=== PATIENT | female | born 1970 | race Caucasian/White ===

== ENCOUNTER 2016-10-29 16:06 | Emergency (ER) | payer SELFPAY ==
[2016-10-29] MEDS ORDERED: KETOROLAC TROMETHAMINE 60 MG/2 ML VIAL IM ONE ×2 (16:58→17:31)
[2016-10-29] MEDS ORDERED: ORPHENADRINE CITRATE 30 MG/ML VIAL ONE (16:59)
[2016-10-29] MEDS ORDERED: ORPHENADRINE CITRATE 30 MG/ML VIAL IM ONE (17:31)
--- OUTSIDE RECORDS SUMMARY | 2016-10-29 18:25 | XMS REPORT | Continuity of Care Document ---
:1970 Author Organization [place] [address] Care Team Providers Name Role Phone DeshawnMary Grace Primary Care Provider [phone] Source Comments This disclosure is being made pursuant to the X BODY program and maynot contain all information available regarding this patient. Active Allergies and Adverse Reactions Not on File Current Medications Be aware that medications may not be up to date as of this document. Alwaysverify current medications with the patient. Not on file Active Problems Not on file Social History Tobacco Use Types Packs/Day Years Used Date Never Assessed Plan of Care Health Maintenance Due Date Last Done Comments Retired-Pertussis Vaccine Adult 1987 Retired-Tetanus Vaccine Adult 1987 Pap Smear 1989 Mammogram 2008 Retired-INFLUENZA VACCINE 04/26/2015 Results from Last 3 Months Not on file
--- OUTSIDE RECORDS SUMMARY | 2016-10-29 18:26 | XMS REPORT | Continuity of Care Document ---
:1970 Author Organization [facility] ([facility]) Address [address] [place] [address] Phone [phone] Care Team Providers Name Role Phone Provider, No-Primary Care Primary Care Provider Unavailable Source Comments This disclosure is being made pursuant to the Care Everywhere program, applicable federal and state laws, and may not contain all informaitonavailable regarding this patient.[facility] ([facility]) Active Allergies and Adverse Reactions Allergen Noted Date Severity Reactions Comments Prochlorperazine OTHER Irritable Current Medications Not on file Active Problems Problem Noted Date Closed fracture of one or more phalanges of foot 06/01/2002 Most Recent Encounters Date Type Specialty Providers Description 09/27/2016 Lab Requisition Pathology Keya Rogers Immunizations Name Dates Previously Given Next Due Influenza, unspecified 02/20/2007 Social History Tobacco Use Types Packs/Day Years Used Date Never Assessed Last Filed Vital Signs Vital Sign Reading Time Taken Blood Pressure 132/93 02/28/2007 3:29 PM CDT Pulse 96 02/28/2007 3:29 PM CDT Temperature 36 C (96.8 F) 02/28/2007 3:29 PM CDT Respiratory Rate 18 02/21/2007 12:00 PM CDT Height 1.62 m (5' 3.77") 02/28/2007 3:29 PM CDT Weight 107.897 kg (237 lb 13.9 oz) 02/28/2007 3:29 PM CDT Body Mass Index 41.11 02/28/2007 3:29 PM CDT Oxygen Saturation - - Plan of Care Health Maintenance Due Date Last Done Comments Hepatitis B Vaccine (1 of 3 - Primary Series) 1968 Tdap Vaccine 1979 MMR Vaccine 1986 Td Vaccine 1986 Cervical Cancer Screening 1998 Mammogram 2008 Influenza Vaccine: Seasonal (#1) 03/26/2016 02/20/2007 Lipid Disorder Screening 09/27/2021 09/27/2016 Results from Last 3 Months THYROXINE - FREE (09/27/2016 9:37 AM) Component Value Range Free T4 (Thyroxine) 0.71(L) 0.80-1.80 ng/dL Specimen Blood TRIGLYCERIDES (09/27/2016 9:37 AM) Component Value Range Triglycerides 302(H)Comment: 0-150 mg/dL Reference Ranges: Normal:<150 mg/dL Borderline-high:150-199 mg/dL High: 200-499 mg/dL Very high: > ru=572 mg/dL Specimen Blood HIGH DENSITY LIPOPROTEIN CHOL (09/27/2016 9:37 AM) Component Value Range HDL Cholesterol 56 >=41 mg/dL LDL - Calculated 156(H) <=130 mg/dL Non-HDL Cholesterol (Calc) 216 mg/dL Specimen Blood CHOLESTEROL (09/27/2016 9:37 AM) Component Value Range Cholesterol 272Comment: mg/dL Reference Range: Less than 200 mg/dL - desirable 200 - 240 mg/dL - increased risk Above 240 mg/dL - significant risk Specimen Blood CREATININE (09/27/2016 9:37 AM) Component Value Range Creatinine 1.0Comment: 0.5-1.0 mg/dL Creatinine switched to enzymatic method on 01/02/2011.GFR equation switched to IDMS-traceable MDRD equation on 01/02/2011. Calculated GFR values are not valid in clinical settings where serum creatinine is changing. Calculated GFR 59(L) >60 mL/min/1.73 m2 Specimen Blood BLOOD UREA NITROGEN (09/27/2016 9:37 AM) Component Value Range BUN 14 10-20 mg/dL Specimen Blood CO2 (09/27/2016 9:37 AM) Component Value Range CO2 24 22-29 mEq/L Anion Gap 18 8-18 mEq/L Specimen Blood CHLORIDE (09/27/2016 9:37 AM) Component Value Range Chloride 97 95-107 mEq/L Specimen Blood POTASSIUM (09/27/2016 9:37 AM) Component Value Range Potassium 4.6 3.5-5.0 mEq/L Specimen Blood SODIUM (09/27/2016 9:37 AM) Component Value Range Sodium 139 135-145 mEq/L Specimen Blood THYROID STIMULATING HORMONE (TSH), WITH REFLEX FREE T-4 (09/27/2016 9:37 AM) Component Value Range TSH, Reflex 5.69(H) 0.27-4.20 IU/mL Specimen Blood GLUCOSE (09/27/2016 9:37 AM) Component Value Range Glucose 102(H)Comment: 65-99 mg/dL The Expert Committee on the Diagnosis and Classification of Diabetes has defined impaired fasting glucose as greater than or equal to 100 mg/dL but less than 126 mg/dL.(Diabetes Care 28 (Suppl 1)S41,2005) Specimen Blood ASPARTATE AMINOTRANSFERASE (09/27/2016 9:37 AM) Component Value Range AST 19Comment: 0-32 U/L Adult reference ranges updated on 07/21/13 at 830am Specimen Blood ALANINE AMINOTRANSFERASE (09/27/2016 9:37 AM) Component Value Range ALT 23Comment: 0-33 U/L The upper limit of normal for alanine aminotransferase (ALT) reference ranges for adults is controversial with some authorities recommending limit as low as 30 U/L for males and 19 U/L for females. Th ere is increased incidence of subclinical liver disease (e.g., early steatohepatitis) in patients with ALT values in the range of 31-41 U/L for males and 20-33 U/L for females. ALT values should alway s be interpreted in conjunction with clinical history, physical examination findings, and, if applicable, data from other diagnostic tests. Specimen Blood EXTRA LAVENDER TUBE (09/27/2016 9:37 AM) Component Value Range Extra Lavender Tube Store Specimen Whole Blood
--- NOTE | 2016-10-29 18:33 | ERNOTE ---
Back Pain ER HPI Time Seen by Provider: 10/29/16 18:19 Source: patient Exam Limitations: no limitations Immunizations: IMMUNIZATION HX Immunizations Up to Date Yes History of Influenza Vaccine No Hx Pneumococcal Vaccination No Allergies/Adverse Reactions: Allergies No Known Drug Allergies Allergy (Verified 10/29/16 16:36) Home Medications: HOME MEDICATIONS Albuterol Sulfate [Proair Hfa] 1 - 2 puff IH Q4H PRN #1 inhaler 05/17/16 [Last Taken Unknown] Amitriptyline HCl 100 mg PO HS #30 tablet 08/21/16 [Last Taken Unknown] Citalopram Hydrobromide [Celexa] 30 mg PO DAILY #30 tablet 08/21/16 [Last Taken Unknown] Gabapentin 400 mg PO TID #90 capsule 08/21/16 [Last Taken Unknown] Lisinopril [Zestril] 20 mg PO DAILY #30 tablet 08/21/16 [Last Taken Unknown] Cyclobenzaprine HCl [Flexeril] 10 mg PO TID PRN #30 tab 10/29/16 [Last Taken Unknown] Ibuprofen [Motrin] 800 mg PO TID PRN #60 tab 10/29/16 [Last Taken Unknown] Narrative: Patient has intermittent sciatic back pain for about five years. Three days ago her pain acted up again without any injury. She was requesting toradol and norflex and is feeling much better after that Date (Duration): 10/26/16 Timing: Reports: intermittent Quality/Severity: Reports: severe, sharpness Location of pain: Reports: lower back, radiating to lf thigh/leg Activities at Onset: Reports: none Recent Injury?: Reports: no Possible Precipitating Factor: Denies: fall/near fall, trauma Modifying Factors - (Worsens): Reports: movement flexion Associated Symptoms: Denies: fever/chills, constipation/incontinence, nausea/ vomiting, problems urinating, difficulty walking, numbess/weakness in legs Prior Treament: Reports: similar symptoms before. Denies: recently seen Review of Systems - Review of Systems Constitutional: Absent: recent illness, fever EYE: Absent: double vision ENT: Absent: sore throat Respiratory: Absent: shortness of breath, cough Cardiology: Absent: chest pain Gastrointestinal/Abdominal: Absent: nausea, vomiting, abdominal pain Genitourinary: Present: no symptoms reported Musculoskeletal: Present: See HPI Neurological: Absent: weakness, numbness - Patient's Past Medical History Patient History - Medical: Anxiety, Bipolar, Depression, Obesity, Other Patient History - Cardiac/Respiratory: No pertinent hx Patient History - Cancer: No Hx of Cancer Patient History - Surgical Procedures: Cholecystectomy, Hysterectomy Patient History - Other: None - Family History Mother Family History - Cardiac/Respiratory: Myocardial Infarction Father Family History - Medical: History Unknown - Social History Living Situations: home Psych History: Hx of Anxiety, Hx of Depression, Hx of Bipolar Disorder Alcohol Use: none Drug Use: none - Immunizations Immunizations Up to Date: Yes Hx Pneumococcal Vaccination: No History of Influenza Vaccine: No Physical Exam - Physical Exam General Appearance: Present: wd/wn, alert, no apparent distress, obese Respiratory: Present: no respiratory distress, normal breath sounds, no accessory muscle use, lungs clear Cardiovascular/Chest: Present: regular rate, rhythm, no murmur Gastrointestinal/Abdominal: Present: nontender, nondistended Back Exam: Present: normal inspection, no vertebral tenderness, muscle spasm - left lumbar paraspinal Neurological Exam: Present: alert, oriented, normal mood/affect, no motor/ sensory deficits DTR: N=norm/NB=norm/brisk/A=abs/DD=dull/dimin/HC=hyperactive: Knee (R): Normal, Knee (L): Normal Skin Exam: Present: normal color, warm/dry ED Progress - Vital Signs Patient's Vital Signs:: I have reviewed the patient's vital signs. Vital Signs: Vital Signs 10/29/16 16:32 Temperature 36.5 C Pulse Rate 97 Respiratory 16 Rate Blood Pressure 206/99 O2 Sat by Pulse 92 Oximetry - Progress/Reassessment Chief Complaint: Back Pain Departure Clinical Impression: Sciatic nerve pain Qualifiers: Laterality: left Qualified Code(s): M54.32 - Sciatica, left side - Departure Disposition: Home self-care Condition: Good Instructions: Sciatica, [id number] Additional Instructions: follow up with your doctor in [place] Prescriptions: Cyclobenzaprine HCl [Flexeril] 10 mg PO TID PRN #30 tab PRN Reason: MUSCLE SPASMS Ibuprofen [Motrin] 800 mg PO TID PRN #60 tab PRN Reason: Pain
[2016-10-29 18:38] VITALS: BP 157/55
== END 2016-10-29 18:30 | disposition home or self-care (01) ==
LOC: ER 16:06
DX: M54.32 Sciatica, left side (principal); F41.8 Other specified anxiety disorders; F31.70 Bipolar disorder, currently in remission, most recent episode unspecified

== ENCOUNTER 2017-01-08 15:47 | Emergency (ER) | payer SELFPAY ==
[2017-01-08] MEDS ORDERED: ALBUTEROL SULFATE/IPRATROPIUM 3 ML NEBU IH ONE ×2 (17:04→17:28)
--- OUTSIDE RECORDS SUMMARY | 2017-01-08 17:04 | XMS REPORT | Continuity of Care Document ---
:1970 Author Organization [facility] ([facility]) Address [address] [place] [address] Phone [phone] Care Team Providers Name Role Phone Provider, No-Primary Care Primary Care Provider Unavailable Source Comments This disclosure is being made pursuant to the Care Everywhere program, applicable federal and state laws, and may not contain all informaitonavailable regarding this patient.[facility] ([facility]) Active Allergies and Adverse Reactions Allergen Noted Date Severity Reactions Comments Prochlorperazine OTHER Irritable Current Medications Not on file Active Problems Problem Noted Date Closed fracture of one or more phalanges of foot 06/01/2002 Most Recent Encounters Date Type Specialty Providers Description 12/25/2016 Lab Requisition Pathology Keya Rogers Immunizations Name [...] Screening 1998 Mammogram 2008 Influenza Vaccine: Seasonal (Season Ended) 2017 02/20/2007 Lipid Disorder Screening 09/27/2021 09/27/2016 Results from Last 3 Months EXTRA LAVENDER TUBE (12/25/2016 9:00 AM) Component Value Range Extra Lavender Tube Store Specimen Whole Blood THYROID STIMULATING HORMONE (12/25/2016 9:00 AM) Component Value Range TSH 2.90 0.27-4.20 IU/mL Specimen Blood
--- NOTE | 2017-01-08 17:15 | ERNOTE ---
Date of Service: 01/08/17 Time Seen by Provider: 01/08/17 16:55 Stated Complaint: COPD, FEVER, SOB Source: patient Exam Limitations: no limitations Immunizations: IMMUNIZATION HX Immunizations Up to Date Yes History of Influenza Vaccine Yes Hx Pneumococcal Vaccination Yes Allergies/Adverse Reactions: Allergies No Known Drug Allergies Allergy (Verified 01/08/17 16:19) Home Medications: HOME MEDICATIONS Albuterol Sulfate [Proair Hfa] 1 - 2 puff IH Q4H PRN #1 inhaler 05/17/16 [Last Taken Unknown] Amitriptyline HCl 100 mg PO HS #30 tablet 08/21/16 [Last Taken Unknown] Citalopram Hydrobromide [Celexa] 30 mg PO DAILY #30 tablet 08/21/16 [Last Taken Unknown] Gabapentin 400 mg PO TID #90 capsule 08/21/16 [Last Taken Unknown] Lisinopril [Zestril] 20 mg PO DAILY #30 tablet 08/21/16 [Last Taken Unknown] Cyclobenzaprine HCl [Flexeril] 10 mg PO TID PRN #30 tab 10/29/16 [Last Taken Unknown] Ibuprofen [Motrin] 800 mg PO TID PRN #60 tab 10/29/16 [Last Taken Unknown] Benzonatate [Tessalon Perle] 100 mg PO TID #30 capsule 01/08/17 [Last Taken Unknown] Doxycycline Monohydrate 100 mg PO BID #20 tablet 01/08/17 [Last Taken Unknown] Lovastatin 20 mg HS 01/08/17 [Last Taken Unknown] predniSONE [Prednisone] 3 tab PO DAILY #9 tab 01/08/17 [Last Taken Unknown] - History of Present Ilness Narrative: Pt. comes in with c/o cough, nasal congestion, and increased SOB for two days. Pt. states that she has been taking her duonebs every six hours and has been taking her albuterol inhaler every four hours in between, Pt. states that it helps for a short time. Pt. denies any fevers, nausea or vomiting but she does state that coughing makes her feel like she could vomit. Review of Systems - Review of Systems Constitutional: Present: no symptoms reported. Absent: fever, chills, weakness , fatigue EYE: Present: no symptoms reported ENT: Present: nose congestion Respiratory: Present: shortness of breath, cough. Absent: wheezing Cardiology: Present: no symptoms reported. Absent: chest pain, palpitations, edema Gastrointestinal/Abdominal: Present: no symptoms reported. Absent: nausea, vomiting, diarrhea Genitourinary: Present: no symptoms reported Musculoskeletal: Present: no symptoms reported. Absent: back pain, joint pain Neurological: Present: no symptoms reported. Absent: headache, dizziness/light- headedness, numbness, tingling Endocrine: Present: no symptoms reported All Other Systems: All systems neg except as marked - Patient's Past Medical History Patient History - Medical: Anxiety, Bipolar, Depression, Obesity Patient History - Cardiac/Respiratory: COPD Patient History - Cancer: No Hx of Cancer Patient History - Surgical Procedures: Cholecystectomy, Hysterectomy Patient History - Other: None LMP (females 10-50): hysterectomy - Family History Mother Family History - Cardiac/Respiratory: Myocardial Infarction Father Family History - Medical: History Unknown - Social History Living Situations: other Psych History: Hx of Anxiety, Hx of Depression, Hx of Bipolar Disorder Smoking Status: Current some day smoker Have you smoked in the past 12 months: Yes - couple x/wk Alcohol Use: none Drug Use: none - Immunizations Immunizations Up to Date: Yes Hx Pneumococcal Vaccination: Yes History of Influenza Vaccine: Yes Physical Exam - Physical Exam General Appearance: Present: wd/wn, alert, no apparent distress Eye Exam: Normal inspection: bilateral, PERRL: bilateral, EOMI: bilateral Ears, Nose, Throat: Present: nasal congestion, pharyngeal erythema, tonsillar exudate - clear PND Neck: Present: nontender, lymphadenopathy (L) - submandibular. Absent: lymphadenopathy (R) Respiratory: Present: no respiratory distress, no accessory muscle use, chest nontender, decreased breath sounds Cardiovascular/Chest: Present: regular rate, rhythm, no murmur, normal peripheral pulses Gastrointestinal/Abdominal: Present: normal bowel sounds, nontender, nondistended, soft, no organomegaly Back Exam: Present: normal inspection, normal range of motion, no CVA tenderness , no vertebral tenderness Extremity Exam: Present: normal inspection, non-tender, normal range of motion, no edema Neurological Exam: Present: alert, oriented, normal mood/affect, no motor/ sensory deficits Skin Exam: Present: normal color, warm/dry. Absent: pallor, skin rash ED Progress - Results and Orders Patient's Lab Results:: I have reviewed the patient's lab results. - Vital Signs Patient's Vital Signs:: I have reviewed the patient's vital signs. Vital Signs: Vital Signs 01/08/17 16:14 Temperature 36.5 C Pulse Rate 90 Respiratory 18 Rate Blood Pressure 155/65 O2 Sat by Pulse 96 Oximetry - X-Ray X-Ray #1 X-Ray: chest Interpretation: Reviewed by me X-ray Comments: emphasematous changes no consolidation - Progress/Reassessment Chief Complaint: Cough Progress:: Unchanged Departure - Departure Clinical Impression: COPD exacerbation Disposition: Home self-care Condition: Good Instructions: Chronic Obstructive Pulmonary Disease Exacerbation Additional Instructions: Pleas follow up with primary provider in 2-3 days. Prescriptions: Benzonatate [Tessalon Perle] 100 mg PO TID #30 capsule Doxycycline Monohydrate 100 mg PO BID #20 tablet predniSONE [Prednisone] 3 tab PO DAILY #9 tab
[2017-01-08 17:39] LABS: Hematocrit 41.6 % (37.0-47.0); Mean Cell Volume 80.8 fl (78-100); Mean Corpuscular Hemoglobin 25.2 pg (27-31); Mean Corpuscular Hgb Conc 31.3 g/dl (32-36); Mean Platelet Volume 9.6 fl (6.0-9.5); Neutrophil # 5.6 K/mm3 (1.3-6.0); Neutrophil % 59.8 % (42-75.0); Platelet Count 393 K/mm3 (150-450); Red Blood Count 5.15 M/mm3 (4.2-5.4); Red Cell Distribution Width 16.2 % (11.5-14.0); White Blood Count 9.3 K/mm3 (4.0-10.5)
[2017-01-08 17:40] LABS: Albumin * 3.5 gm/dl (3.4-5.0); BUN/Creatinine Ratio 13.2 (9.0-21.6); Bilirubin, Total 0.1 mg/dL (0.0-1.1); Ca. Corrected For Albumin 9.1 mg/dL (8.4-10.2); Total Protein 7.6 gm/dL (6.2-8.2)
[2017-01-08 19:20] VITALS: BP 138/70
== END 2017-01-08 19:15 | disposition home or self-care (01) ==
LOC: ER 15:47
DX: J44.1 Chronic obstructive pulmonary disease with (acute) exacerbation (principal); Z72.0 Tobacco use; F41.8 Other specified anxiety disorders; F31.70 Bipolar disorder, currently in remission, most recent episode unspecified

== ENCOUNTER 2017-04-13 07:44 | Emergency (ER) | payer SELFPAY ==
--- NOTE | 2017-04-13 08:18 | ERNOTE ---
Back Pain ER HPI Date of Service: 04/13/17 Presenting Symptoms: hx chronic back pain Time Seen by Provider: 04/13/17 08:14 Source: patient Exam Limitations: no limitations Immunizations: IMMUNIZATION HX Immunizations Up to Date Yes History of Influenza Vaccine Yes Hx Pneumococcal Vaccination Yes Allergies/Adverse Reactions: Allergies No Known Drug Allergies Allergy (Verified 04/13/17 07:52) Home Medications: HOME MEDICATIONS Albuterol Sulfate [Proair Hfa] 1 - 2 puff IH Q4H PRN #1 inhaler 05/17/16 [Last Taken Unknown] Amitriptyline HCl 100 mg PO HS #30 tablet 08/21/16 [Last Taken Unknown] Citalopram Hydrobromide [Celexa] 30 mg PO DAILY #30 tablet 08/21/16 [Last Taken Unknown] Gabapentin 400 mg PO TID #90 capsule 08/21/16 [Last Taken Unknown] Lisinopril [Zestril] 20 mg PO DAILY #30 tablet 08/21/16 [Last Taken Unknown] Cyclobenzaprine HCl [Flexeril] 10 mg PO TID PRN #30 tab 10/29/16 [Last Taken Unknown] Ibuprofen [Motrin] 800 mg PO TID PRN #60 tab 10/29/16 [Last Taken Unknown] Benzonatate [Tessalon Perle] 100 mg PO TID #30 capsule 01/08/17 [Last Taken Unknown] Doxycycline Monohydrate 100 mg PO BID #20 tablet 01/08/17 [Last Taken Unknown] Lovastatin 20 mg HS 01/08/17 [Last Taken Unknown] predniSONE [Prednisone] 3 tab PO DAILY #9 tab 01/08/17 [Last Taken Unknown] Cyclobenzaprine HCl [Flexeril] 10 mg PO TID PRN #20 tab 04/13/17 [Last Taken Unknown] HYDROcodone/ACETAMINOPHEN [[place] 5-325] 1 tab PO Q8H PRN #12 tab 04/13/17 [Last Taken Unknown] Narrative: patient presents to the ED for left low back pain. She relates that this is a chronic condition for her. She realts she has had this for 10 years. She relates that this is the same pain she had had for years, nothing different about it. She was mopping Saturday night and she woke up moring with increased pain. No new N/T/W> pain down back of left leg to thigh which is normal for her. She states gabapentin normally works for her but hasn't been helping since mopping. Worse with bending and movement. No loss of bowel or bladder control. Has not seen anyone else for this. No fever. No fall. She tells me this is an exacerbation of her chronic pain. CAn be severe with movement. No midline pain Timing: Reports: constant Quality/Severity: Reports: severe Location of pain: Reports: other - left low back into upper posterior thigh. Activities at Onset: Reports: other - mopping\ Modifying Factors - (Improves): Reports: other - rest Modifying Factors - (Worsens): Reports: movement to right, movement to left, movement flexion Associated Symptoms: Denies: fever/chills, constipation/incontinence, nausea/ vomiting, problems urinating, difficulty walking, numbess/weakness in legs Prior Treament: Denies: recently seen Review of Systems - Review of Systems Constitutional: Absent: fever Respiratory: Absent: shortness of breath Cardiology: Absent: chest pain Gastrointestinal/Abdominal: Absent: abdominal pain Genitourinary: Absent: frequency, pain, dysuria Neurological: Absent: weakness - Patient's Past Medical History Patient History - Medical: Anxiety, Bipolar, Depression, Obesity Patient History - Cardiac/Respiratory: COPD Patient History - Cancer: No Hx of Cancer Patient History - Surgical Procedures: Cholecystectomy, Hysterectomy Patient History - Other: None - Family History Mother Family History - Cardiac/Respiratory: Myocardial Infarction Father Family History - Medical: History Unknown - Social History Living Situations: home Psych History: Hx of Anxiety, Hx of Depression, Hx of Bipolar Disorder Alcohol Use: none Drug Use: none - Immunizations Immunizations Up to Date: Yes Hx Pneumococcal Vaccination: Yes History of Influenza Vaccine: Yes Physical Exam - Physical Exam General Appearance: Present: alert, no apparent distress Head Exam: Present: normal inspection, no evidence of injury Eye Exam: Normal inspection: bilateral, PERRL: bilateral Ears, Nose, Throat: Present: normal ENT inspection Neck: Present: normal inspection Respiratory: Present: no respiratory distress Cardiovascular/Chest: Present: regular rate, rhythm Gastrointestinal/Abdominal: Present: normal bowel sounds, nontender, soft Back Exam: Present: no vertebral tenderness, other - Completely reproducible tenderness left low back. This completlely reproduces her pain. No midline tenderness. No CVA tendernes. 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 Can stand on toes and heels. No cauda equina syndrome. Patellar tendon reflexes equal. No neuro deficits.. Absent: motor weakness Skin Exam: Present: normal color, warm/dry. Absent: skin rash ED Progress - Vital Signs Patient's Vital Signs:: I have reviewed the patient's vital signs. Vital Signs: Vital Signs 04/13/17 07:48 Temperature 36.9 C Pulse Rate 105 H Respiratory 14 Rate Blood Pressure 163/116 O2 Sat by Pulse 95 Oximetry - Progress/Reassessment Chief Complaint: Back Pain Progress Note-Subjective: 04/13/17 08:28 I offered testin, she just wants something for pain. Nothign clinically to suggest cauda equina syndrome or neuro deficit, nothign to suggest infectious process. She just requests pain medications, no other w/u. She tells me this is just like prior pain, nothing different. I discussed warning signs and reasons to return as well as the need for close f/u. Departure Clinical Impression: Back pain - Departure Disposition: Home self-care Condition: Stable Instructions: Back Pain, Adult Additional Instructions: Rest. No driving with medications. FOllow-up with your doctor saturday. Return here if you change your mind about having any of the additional testing we discussed, develop fever, numbness, tingling, weakness, trouble with bowel or bladder control or if your condition worsens or changes in any way. Prescriptions: Cyclobenzaprine HCl [Flexeril] 10 mg PO TID PRN #20 tab PRN Reason: MUSCLE SPASMS HYDROcodone/ACETAMINOPHEN [[place] 5-325] 1 tab PO Q8H PRN #12 tab PRN Reason: Pain
[2017-04-13 08:19] VITALS: BP 159/90
== END 2017-04-13 08:24 | disposition home or self-care (01) ==
LOC: ER 07:44
DX: M54.5 Low back pain (principal); J44.9 Chronic obstructive pulmonary disease, unspecified; F41.9 Anxiety disorder, unspecified; F32.9 Major depressive disorder, single episode, unspecified

== ENCOUNTER 2017-05-07 12:26 | Emergency (ER) | payer SELFPAY ==
[2017-05-07 12:38] VITALS: BP 149/95
--- NOTE | 2017-05-07 14:33 | ERNOTE ---
Back Pain ER HPI Presenting Symptoms: hx chronic back pain Time Seen by Provider: 05/07/17 13:48 Source: patient Exam Limitations: no limitations Immunizations: IMMUNIZATION HX Immunizations Up to Date Yes History of Influenza Vaccine Yes Hx Pneumococcal Vaccination Yes Allergies/Adverse Reactions: Allergies No Known Drug Allergies Allergy (Verified 04/13/17 07:52) Home Medications: HOME MEDICATIONS Albuterol Sulfate [Proair Hfa] 1 - 2 puff IH Q4H PRN #1 inhaler 05/17/16 [Last Taken Unknown] Amitriptyline HCl 100 mg PO HS #30 tablet 08/21/16 [Last Taken Unknown] Citalopram Hydrobromide [Celexa] 30 mg PO DAILY #30 tablet 08/21/16 [Last Taken Unknown] Lisinopril [Zestril] 20 mg PO DAILY #30 tablet 08/21/16 [Last Taken Unknown] Cyclobenzaprine HCl [Flexeril] 10 mg PO TID PRN #30 tab 10/29/16 [Last Taken Unknown] Ibuprofen [Motrin] 800 mg PO TID PRN #60 tab 10/29/16 [Last Taken Unknown] Benzonatate [Tessalon Perle] 100 mg PO TID #30 capsule 01/08/17 [Last Taken Unknown] Doxycycline Monohydrate 100 mg PO BID #20 tablet 01/08/17 [Last Taken Unknown] Lovastatin 20 mg HS 01/08/17 [Last Taken Unknown] predniSONE [Prednisone] 3 tab PO DAILY #9 tab 01/08/17 [Last Taken Unknown] Cyclobenzaprine HCl [Flexeril] 10 mg PO TID PRN #20 tab 04/13/17 [Last Taken Unknown] HYDROcodone/ACETAMINOPHEN [[place] 5-325] 1 tab PO Q8H PRN #12 tab 04/13/17 [Last Taken Unknown] Baclofen 10 mg PO QID #120 tab 05/07/17 [Last Taken Unknown] Gabapentin 600 mg PO BID 05/07/17 [Last Taken Unknown] Narrative: Patient presents with continuing low back pain, over she states that the pain starts in the left buttock and goes down the back of the leg. She has had a variety of interventions without success for this pain and is here just looking for some possible suggestions for exercise and assistance with pain management. Timing: Reports: constant Quality/Severity: Reports: moderate Location of pain: Reports: radiating to lf thigh/leg Activities at Onset: Reports: none Recent Injury?: Reports: no Possible Precipitating Factor: Reports: none Modifying Factors - (Improves): Reports: nothing Modifying Factors - (Worsens): Reports: nothing Associated Symptoms: Reports: none Review of Systems - Review of Systems Constitutional: Present: See HPI EYE: Present: no symptoms reported ENT: Present: no symptoms reported Respiratory: Present: no symptoms reported Cardiology: Present: no symptoms reported Gastrointestinal/Abdominal: Present: no symptoms reported Genitourinary: Present: no symptoms reported Musculoskeletal: Present: See HPI Skin: Present: no symptoms reported Neurological: Present: other - sciatic pain on the left Endocrine: Present: no symptoms reported Hematologic/Lymphatic: Present: no symptoms reported Psych: Present: no symptoms reported - Patient's Past Medical History Patient History - Medical: Anxiety, Bipolar, Depression, Obesity, Other - chronic back pain and left-sided sciatic pain Patient History - Cardiac/Respiratory: COPD Patient History - Cancer: No Hx of Cancer Patient History - Surgical Procedures: Cholecystectomy, Hysterectomy Patient History - Other: None - Family History Mother Family History - Cardiac/Respiratory: Myocardial Infarction Father Family History - Medical: History Unknown - Social History Living Situations: home Psych History: Hx of Anxiety, Hx of Depression, Hx of Bipolar Disorder Smoking Status: Current every day smoker Have you smoked in the past 12 months: Yes Alcohol Use: none Drug Use: none - Immunizations Immunizations Up to Date: Yes Hx Pneumococcal Vaccination: Yes History of Influenza Vaccine: Yes Physical Exam - Physical Exam General Appearance: Present: wd/wn, alert, moderate distress Head Exam: Present: normal inspection, no evidence of injury Eye Exam: Normal inspection: bilateral, PERRL: bilateral Ears, Nose, Throat: Present: normal ENT inspection, H, normal pharynx Neck: Present: normal inspection, nontender Respiratory: Present: no respiratory distress, normal breath sounds, no accessory muscle use, chest nontender, lungs clear Cardiovascular/Chest: Present: regular rate, rhythm, no murmur, normal peripheral pulses Gastrointestinal/Abdominal: Present: normal bowel sounds, nontender, nondistended, soft, no organomegaly Rectal Exam: Present: deferred Back Exam: Present: other - the origin of the pain appears to be in the left piriformis muscle Extremity Exam: Present: normal inspection, non-tender, no edema, normal range of motion Neurological Exam: Present: alert, oriented, normal mood/affect, other - left- sided sciatica Skin Exam: Present: normal color, warm/dry Lymphatic Exam: Present: no adenopathy ED Progress - Vital Signs Patient's Vital Signs:: I have reviewed the patient's vital signs. Vital Signs: Vital Signs 05/07/17 12:36 Temperature 36.8 C Pulse Rate 96 Respiratory 16 Rate Blood Pressure 149/95 O2 Sat by Pulse 97 Oximetry - Progress/Reassessment Chief Complaint: Back Pain Plan - Plan Plan: The patient will be problematic to treat because she does not have insurance and therefor cannot get the appropriate referral into physical therapy and she has number to pay for it. I will start the patient on a muscle relaxer, something to try to assist in the pain find some exercises for piriformis syndrome. Departure Clinical Impression: Piriformis syndrome Qualifiers: Laterality: left Qualified Code(s): G57.02 - Lesion of sciatic nerve, left lower limb Sciatica Qualifiers: Laterality: left Qualified Code(s): M54.32 - Sciatica, left side - Departure Disposition: Home self-care Condition: Good Instructions: Piriformis Syndrome With Rehab-[facility] Prescriptions: Baclofen 10 mg PO QID #120 tab
== END 2017-05-07 14:35 | disposition home or self-care (01) ==
LOC: ER 12:26
DX: G57.02 Lesion of sciatic nerve, left lower limb (principal); M54.32 Sciatica, left side; J44.9 Chronic obstructive pulmonary disease, unspecified; G89.29 Other chronic pain; F41.8 Other specified anxiety disorders; F31.70 Bipolar disorder, currently in remission, most recent episode unspecified; F17.200 Nicotine dependence, unspecified, uncomplicated

== ENCOUNTER 2017-06-19 08:22 | Emergency (ER) | payer SELFPAY ==
--- NOTE | 2017-06-19 08:52 | ERNOTE ---
Lower Extremity HPI - Narrative Date of Service: 06/19/17 - General Lower Extremities Pain: knee: left Time Seen by Provider: 06/19/17 08:29 Source: patient Exam Limitations: no limitations - Immun/Allergies/Home Medications Immunizations: IMMUNIZATION HX Immunizations Up to Date Yes History of Influenza Vaccine No Hx Pneumococcal Vaccination No Allergies/Adverse Reactions: Allergies Allergy/AdvReac Type Severity Reaction Status Date / Time No Known Drug Allergies Allergy Verified 04/13/17 07:52 Home Medications: HOME MEDICATIONS Albuterol Sulfate [Proair Hfa] 1 - 2 puff IH Q4H PRN #1 inhaler 05/17/16 [Last Taken Unknown] Amitriptyline HCl 100 mg PO HS #30 tablet 08/21/16 [Last Taken Unknown] Citalopram Hydrobromide [Celexa] 30 mg PO DAILY #30 tablet 08/21/16 [Last Taken Unknown] Lisinopril [Zestril] 20 mg PO DAILY #30 tablet 08/21/16 [Last Taken Unknown] Cyclobenzaprine HCl [Flexeril] 10 mg PO TID PRN #30 tab 10/29/16 [Last Taken Unknown] Ibuprofen [Motrin] 800 mg PO TID PRN #60 tab 10/29/16 [Last Taken Unknown] Benzonatate [Tessalon Perle] 100 mg PO TID #30 capsule 01/08/17 [Last Taken Unknown] Doxycycline Monohydrate 100 mg PO BID #20 tablet 01/08/17 [Last Taken Unknown] Lovastatin 20 mg HS 01/08/17 [Last Taken Unknown] predniSONE [Prednisone] 3 tab PO DAILY #9 tab 01/08/17 [Last Taken Unknown] Cyclobenzaprine HCl [Flexeril] 10 mg PO TID PRN #20 tab 04/13/17 [Last Taken Unknown] HYDROcodone/ACETAMINOPHEN [[place] 5-325] 1 tab PO Q8H PRN #12 tab 04/13/17 [Last Taken Unknown] Baclofen 10 mg PO QID #120 tab 05/07/17 [Last Taken Unknown] Gabapentin 600 mg PO BID 05/07/17 [Last Taken Unknown] HYDROcodone/ACETAMINOPHEN [[place] 5-325] 1 each PO Q8H PRN #8 tablet 06/19/17 [ Last Taken Unknown] - History of Present Illness Narrative: Patient presents to the ED for left knee pain. THis in in the anterior left knee. She relates that last night she slipped on wooden stairs and slid down to stairs but when she hit the bottom all the impact was on her left anterior knee and she flipped over. She has pain only in the left anterior knee. No other injuries. She denies head injury, neck or back pain, CP or SOB. Did not hit her head. She denies lfet hip or foot/leg pain. Only pain left anterior knee. Denies focal N/T/W. She can walk on it but it will have a "catch" with a shot of severe pain through the knee. It feels like her knee will give out sometimes. Has not seen anyone else for this. Occurred: other - last night Location of Incident: home Method of Injury: Reports: fell Reason for Fall: Reports: slipped Loss of Consciousness: Reports: no loss of consciousness Modifying Factors - (Improves): Reports: rest Modifying Factors - (Worsens): Reports: other - moving Associated Symptoms: Denies: unable to bear weight, headache, weakness, sensory loss Other Injuries: Reports: none Subsequent Symptoms: Denies: sensory loss, numbness, motor loss Prior Treament: Denies: recently seen Review of Systems - Review of Systems Constitutional: Absent: fever EYE: Absent: vision changes Respiratory: Absent: shortness of breath Cardiology: Absent: chest pain Gastrointestinal/Abdominal: Absent: abdominal pain Musculoskeletal: Present: See HPI Skin: Present: other - no lacerations Neurological: Absent: weakness - Patient's Past Medical History Patient History - Medical: Anxiety, Bipolar, Depression, Obesity, Other Patient History - Cardiac/Respiratory: COPD Patient History - Cancer: No Hx of Cancer Patient History - Surgical Procedures: Cholecystectomy, Hysterectomy Patient History - Other: None - Family History Mother Family History - Cardiac/Respiratory: Myocardial Infarction Father Family History - Medical: History Unknown - Social History Psych History: Hx of Anxiety, Hx of Depression, Hx of Bipolar Disorder Smoking Status: Current every day smoker - Immunizations Immunizations Up to Date: Yes Hx Pneumococcal Vaccination: No History of Influenza Vaccine: No Physical Exam - Physical Exam General Appearance: Present: alert, no apparent distress Head Exam: Present: normal inspection, no evidence of injury Eye Exam: Normal inspection: bilateral, PERRL: bilateral Ears, Nose, Throat: Present: normal ENT inspection Neck: Present: normal inspection, nontender, other - no posterior C-spine tenderensss Respiratory: Present: no respiratory distress, normal breath sounds, lungs clear Cardiovascular/Chest: Present: regular rate, rhythm, normal peripheral pulses, other - strong DP pulses Gastrointestinal/Abdominal: Present: normal bowel sounds, nontender, soft. Absent: tenderness Back Exam: Present: normal inspection, normal range of motion, no vertebral tenderness, other - no point vertebral tenderness Extremity Exam: Present: other - no tenderness except left knee. THere is anterior tenderness left knee. No hip tenderness. No tib/fib, ankle or foot tendenress. No gross instability but pain limits exam and it is difficult to acertain internal derangement. No clear patellar tendon injury, can hold in full extension against gravity. No compartment syndrome, no septic joint. No other point bone tenderness Neurological Exam: Present: alert, normal mood/affect, no motor/sensory deficits Skin Exam: Present: normal color, warm/dry ED Progress - Vital Signs Patient's Vital Signs:: I have reviewed the patient's vital signs. Vital Signs: Vital Signs 06/19/17 08:28 Temperature 36.2 C L Pulse Rate 96 Respiratory 16 Rate Blood Pressure 145/97 O2 Sat by Pulse 95 Oximetry - X-Ray X-Ray #1 X-Ray: knee Interpretation: Interp. by me X-ray Comments: I reviewed official radiology x-ray report - Progress/Reassessment Chief Complaint: Lower Extremity Pain/ Injury Progress Note-Subjective: 06/19/17 08:[address] knee immobilizer. No other injuries. Exam limited by pain but cannot r/o internal derangement but no gross instability. No compartment syndrome, no septic arthritis, no neuro vascular deficit. i disucssed warning signs and reasons to return as well as the need for close f/u. 06/19/17 09:27 Patient requested Toradol, given. No fracture, cannot r/o internal derangement. Departure Clinical Impression: Left knee injury - Departure Disposition: Home self-care Condition: Stable Instructions: Knee Pain, [id number] Additional Instructions: Knee immobilizer. Rest. Ice. Elevation. Follow-up with your doctor in 3 days for a re-check. Return for fever, increased pain, numbness, tingling, weakness or if your condition worsens or changes in any way. No driving with pain medications. Prescriptions: HYDROcodone/ACETAMINOPHEN [[place] 5-325] 1 each PO Q8H PRN #8 tablet PRN Reason: Pain
[2017-06-19] MEDS ORDERED: KETOROLAC TROMETHAMINE 30 MG/ML VIAL IM ONE (09:27)
[2017-06-19] MEDS ORDERED: KETOROLAC TROMETHAMINE 30 MG/ML VIAL ONE (09:31)
[2017-06-19 09:48] VITALS: BP 142/85
== END 2017-06-19 09:38 | disposition home or self-care (01) ==
LOC: ER 08:22
PROC: 2W3MX1Z Immobilization of Left Lower Extremity using Splint (ICD-10-PCS; principal; 2017-06-19)
DX: S89.92XA Unspecified injury of left lower leg, initial encounter (principal); W10.8XXA Fall (on) (from) other stairs and steps, initial encounter; Y92.008 Other place in unspecified non-institutional (private) residence as the place of occurrence of the external cause

== ENCOUNTER 2017-07-13 16:27 | Emergency (ER) | payer SELFPAY ==
[2017-07-13] MEDS ORDERED: ASPIRIN 325 MG TABLET.DR PO ONE (16:39)
[2017-07-13] MEDS ORDERED: LORazepam 2 MG/ML DISP.SYRIN IV ONE (16:39)
[2017-07-13] MEDS ORDERED: LORazepam 2 MG/ML DISP.SYRIN ONE (16:47)
[2017-07-13] MEDS ORDERED: ASPIRIN 81 MG TAB.CHEW ONE (16:47)
[2017-07-13] MEDS ORDERED: ASPIRIN 81 MG TAB.CHEW PO ONE (16:48)
[2017-07-13 16:52] LABS: Hematocrit 38.7 % (37.0-47.0); Hemoglobin 12.2 gm/dL (12.5-16.0); Mean Cell Volume 79.6 fl (78-100); Mean Corpuscular Hemoglobin 25.1 pg (27-31); Mean Corpuscular Hgb Conc 31.5 g/dl (32-36); Mean Platelet Volume 9.2 fl (6.0-9.5); Neutrophil # 7.6 K/mm3 (1.3-6.0); Neutrophil % 66.3 % (42-75.0); Platelet Count 378 K/mm3 (150-450); Red Blood Count 4.86 M/mm3 (4.2-5.4); Red Cell Distribution Width 16.5 % (11.5-14.0); White Blood Count 11.5 K/mm3 (4.0-10.5)
[2017-07-13 17:08] LABS: ALT 46 U/L (19-67); AST 33 U/L (0-48); Albumin * 3.3 gm/dl (3.4-5.0); Alkaline Phosphatase * 114 U/L (50-170); Anion Gap 14.8 mmol/L (6.8-13.8); BUN/Creatinine Ratio 13.2 (9.0-21.6); Bilirubin, Total 0.2 mg/dL (0.0-1.1); Blood Urea Nitrogen 14 mg/dL (3-23); Ca. Corrected For Albumin 8.8 mg/dL (8.4-10.2); Calcium * 8.6 mg/dL (7.9-10.9); Carbon Dioxide 29.3 mmol/L (24-32.6); Chloride 101 mmol/L (97-106); Glucose * 134 mg/dL (70-110); Potassium 4.1 mmol/L (3.4-4.6); Sodium 141 mmol/L (132-142); Total Protein 7.1 gm/dL (6.2-8.2); Troponin I Less than 0.017 ng/ml (0.00-0.10)
[2017-07-13 17:13] VITALS: BP 141/91
--- NOTE | 2017-07-13 17:27 | ERNOTE ---
Chest Pain/Cardiac HPI Date of Service: 07/13/17 Chief Complaint: Chest Pain Time Seen by Provider: 07/13/17 16:35 Source: patient Exam Limitations: no limitations Immunizations: IMMUNIZATION HX Immunizations Up to Date Yes History of Influenza Vaccine No Hx Pneumococcal Vaccination Yes Allergies/Adverse Reactions: Allergies No Known Drug Allergies Allergy (Verified 07/13/17 16:41) Home Medications: HOME MEDICATIONS Albuterol Sulfate [Proair Hfa] 1 - 2 puff IH Q4H PRN #1 inhaler 05/17/16 [Last Taken Unknown] Lisinopril [Zestril] 20 mg PO DAILY #30 tablet 08/21/16 [Last Taken Unknown] Ibuprofen [Motrin] 800 mg PO TID PRN #60 tab 10/29/16 [Last Taken Unknown] Lovastatin 20 mg HS 01/08/17 [Last Taken Unknown] Gabapentin 600 mg PO BID 05/07/17 [Last Taken Unknown] HYDROcodone/ACETAMINOPHEN [[place] 5-325] 1 each PO Q8H PRN #8 tablet 06/19/17 [ Last Taken Unknown] Amitriptyline HCl 150 mg PO HS 07/13/17 [Last Taken Unknown] Citalopram Hydrobromide [Celexa] 40 mg PO DAILY 07/13/17 [Last Taken Unknown] HYDROcodone/ACETAMINOPHEN [[place] 5-325] 1 each PO Q8H PRN #8 tablet 07/13/17 [ Last Taken Unknown] Methocarbamol [Robaxin] 500 mg PO TID PRN #12 tablet 07/13/17 [Last Taken Unknown] Narrative: Patient presents to the ED for right sided chest pain. She relates that the pain started around 2pm today. It started after mopping. It is the right side of her chest and is worse with movement and palpation. No recent illnesses. No acute SOB. No calf pain or leg swelling. pain reproduced with moving her right arm. She thinks this was from the mopping. She relates her last stress test 2 years ago. Timing: constant Severity/Quality: moderate Location: other - right upper chestm shoulder Chest Pain Radiation: other - right shoulder Modifying Factors - Improves: Present: nothing Modifying Factors - Worsens: Present: other - palpation of chest and moving right arm Aspirin Treatment Today: 81 mg x 1 Associated Symptoms: Absent: headache, syncope, cough, shortness of breath, diaphoresis, nausea, vomiting Prior Chest Pain/Cardiac Workup: Denies: angina Prior Treatment: Denies: recently seen Review of Systems - Review of Systems Constitutional: Absent: fever ENT: Absent: sore throat Respiratory: Present: See HPI Cardiology: Present: See HPI Gastrointestinal/Abdominal: Absent: abdominal pain Genitourinary: Absent: dysuria Musculoskeletal: Present: other - rotator cuff problems Skin: Absent: rash All Other Systems: All systems neg except as marked - Patient's Past Medical History Patient History - Medical: Anxiety, Bipolar, Depression, Obesity, Other Patient History - Cardiac/Respiratory: COPD Patient History - Cancer: No Hx of Cancer Patient History - Surgical Procedures: Cholecystectomy, Hysterectomy Patient History - Other: None LMP (females 10-50): post gayla - Family History Mother Family History - Cardiac/Respiratory: Myocardial Infarction Father Family History - Medical: History Unknown - Social History Living Situations: home Psych History: Hx of Anxiety, Hx of Depression, Hx of Bipolar Disorder Smoking Status: Current every day smoker Alcohol Use: none Drug Use: none - Immunizations Immunizations Up to Date: Yes Hx Pneumococcal Vaccination: Yes History of Influenza Vaccine: No Physical Exam - Physical Exam General Appearance: Present: alert, no apparent distress Head Exam: Present: normal inspection, no evidence of injury Eye Exam: Normal inspection: bilateral, PERRL: bilateral Ears, Nose, Throat: Present: normal ENT inspection Neck: Present: normal inspection Respiratory: Present: no respiratory distress, normal breath sounds, no accessory muscle use, lungs clear, other - completely reproducible tenderness right upper chest. Palpation here causes her to grimace and she states this is the exact pain she was having Cardiovascular/Chest: Present: regular rate, rhythm, no murmur, normal peripheral pulses Gastrointestinal/Abdominal: Present: normal bowel sounds, nontender, soft Back Exam: Present: normal range of motion Extremity Exam: Present: normal inspection, non-tender Neurological Exam: Present: alert, normal mood/affect, no motor/sensory deficits Skin Exam: Present: normal color, warm/dry ED Progress - Results and Orders Patient's Lab Results:: I have reviewed the patient's lab results. - Vital Signs Patient's Vital Signs:: I have reviewed the patient's vital signs. Vital Signs: Vital Signs 07/13/17 07/13/17 07/13/17 16:35 16:43 16:51 Temperature 36.7 C Pulse Rate 102 H 106 H 101 H Respiratory 14 19 Rate Blood Pressure 158/95 159/95 O2 Sat by Pulse 96 96 Oximetry 07/13/17 17:12 Temperature Pulse Rate 100 Respiratory 14 Rate Blood Pressure 141/91 O2 Sat by Pulse 96 Oximetry - EKG EKG read: Interp. by me EKG Comments: Sinus tachycardia, Non-specific, no evidence of STEMI - X-Ray X-Ray #1 X-Ray: chest Interpretation: Interp. by me X-ray Comments: No real-time radiology reads, NAPP by my reading - CT/Ultrasound CT/Ultrasound Narrative: I reviewed offcial CT report - Progress/Reassessment Chief Complaint: Chest Pain Progress Note-Subjective: 07/13/17 19:18 Clinically doubt PE. no evidence of aortic dissection. I offered her observation but she declines this. She understands risks and benefits. She was agreeable to stay for second troponin which was negative, so I will not sign her out AMA. She does have pain with palpation and movement that she requests something for pain for so I will provide this. Clinically all reproducible. I discussed warning signs and reasons to return as well as the need for close f/u. No suggestion of ACS at this time. Departure Clinical Impression: Atypical chest pain - Departure Disposition: Home self-care Condition: Stable Instructions: Musculoskeletal Pain Additional Instructions: Rest. Fluids. No driving with pain medications. Follow-up with your doctor Saturday for a re-check. Return if you change your mind about observation, develop trouble breathing or if your condition worsens or changes in any way. Prescriptions: HYDROcodone/ACETAMINOPHEN [[place] 5-325] 1 each PO Q8H PRN #8 tablet PRN Reason: Pain Methocarbamol [Robaxin] 500 mg PO TID PRN #12 tablet PRN Reason: Muscle Spasm
== END 2017-07-13 19:44 | disposition home or self-care (01) ==
LOC: ER 16:27
DX: R07.89 Other chest pain (principal); J44.9 Chronic obstructive pulmonary disease, unspecified; F41.8 Other specified anxiety disorders; F17.200 Nicotine dependence, unspecified, uncomplicated

== ENCOUNTER 2018-06-05 17:00 | Inpatient (IN) ==
[~2018-06-05 17:00] MED LIST: ACETAMINOPHEN 325 MG TABLET PO PRN; ALBUTEROL SULFATE 2.5 MG/0.5 ML VIAL.NEB IH PRN; ALBUTEROL SULFATE 2.5 MG/0.5 ML VIAL.NEB IH SCH
--- NOTE | 2018-06-05 17:01 | HP ---
Chief Complaint - Chief Complaint Date of Service: 06/05/18 Time of Service: 16:00 Chief Complaint: cough, fever, dyspnea, wheezing, failed outpt. tx. Medical History (Last Reviewed 06/05/18 @ 15:43 by Concepción Coronel) Conjunctivitis due to adenovirus, both eyes (Acute) Hypothyroidism (Chronic) Onset Date: Unknown Hyperglyceridemia (Chronic) Onset Date: Unknown Hyperlipidemia due to dietary fat intake (Chronic) Onset Date: Unknown Diabetes mellitus (Chronic) Onset Date: Unknown COPD (chronic obstructive pulmonary disease) (Chronic) Onset Date: Unknown Bipolar disorder (Chronic) Onset Date: Unknown Arthritis of knee (Chronic) Onset Date: Unknown Back pain Surgical History: Surgical History (Last Reviewed 06/05/18 @ 15:43 by Concepción Coronel) History of total abdominal hysterectomy and bilateral salpingo-oophorectomy Onset Date: Unknown Hx of cholecystectomy Onset Date: Unknown Hx of tubal ligation Onset Date: Unknown Family History: Family History (Last Reviewed 06/05/18 @ 15:43 by Concepción Coronel) Mother No problems noted. Social History: Patient Lives/Resources Home Utilized Occupation homemaker Preferred Language Thai Do you have any synagogue or No cultural preference? Smoking Status Current every day smoker Have you smoked in the past 12 Yes months Do you dip or chew tobacco No Psych History Hx of Anxiety,Hx of Depression,Hx of Bipolar Disorder Review Of Systems (GEN) - Review of Systems Generalized/Overall Review: Present: Weakness, Chills, Fever, Malaise, Fatigue EENTM: Present: Nose Congestion Respiratory: Present: Cough, Shortness of Breath, Stridor, Wheezing Cardiac: Present: No Symptoms Reported Abdominal: Present: Nausea, Vomiting, Abdominal Pain Genitourinary: Present: Polyuria Musculoskeletal: Present: Muscle Pain Neurological: Present: Numbness, Pre-existing Deficit Skin: Present: No Symptoms Reported Endocrine: Present: Increased Thirst Immunizations: IMMUNIZATION HX Immunizations Up to Date Yes History of Influenza Vaccine No Hx Pneumococcal Vaccination Yes Allergies/Adverse Reactions: Allergies Allergy/AdvReac Type Severity Reaction Status Date / Time No Known Drug Allergies Allergy Verified 06/05/18 15:43 Home Medications: HOME MEDICATIONS Albuterol Sulfate [Proair Hfa] 1 - 2 puff IH Q4H PRN #1 inhaler 05/17/16 [Last Taken Unknown] Glimepiride 4 mg PO DAILY 01/10/18 [Last Taken Unknown] Pravastatin Sodium 40 mg PO DAILY 01/10/18 [Last Taken Unknown] Albuterol Sulfate [Albuterol Sulfate 0.63 MG/3ML] 0.63 mg IH Q4H PRN 03/12/18 [Last Taken Unknown] gabapentin 800 mg tablet 800 mg PO QID #120 tab 03/27/18 [Last Taken Unknown] ibuprofen 800 mg tablet 800 mg PO QID #120 tab 03/27/18 [Last Taken Unknown] lisinopril 10 mg tablet 10 mg PO DAILY #30 tab 03/27/18 [Last Taken Unknown] metformin 500 mg tablet 500 mg PO BID #120 tab 03/27/18 [Last Taken Unknown] amitriptyline 150 mg tablet 150 mg PO HS #30 tab 05/20/18 [Last Taken Unknown] citalopram 40 mg tablet 20 mg PO DAILY tab 05/20/18 [Last Taken Unknown] hydrocodone 7.5 mg-acetaminophen 325 mg tablet 1 tab PO .COMPLEX PRN #150 tab 05/20/18 [Last Taken Unknown] levothyroxine 125 mcg tablet 125 mcg PO DAILY #30 tab 05/20/18 [Last Taken Unknown] Exam - Exam Vital Signs: Vital Signs - Last Taken Temp 37.4 C 06/05/18 16:30 Pulse 96 06/05/18 16:30 Resp 24 H 06/05/18 16:30 Constitutional: Present: Alert, Oriented x3, Cooperative, Well developed, Well nourished, Moderate distress, Middle aged, Morbidly obese ENT Exam: Present: nasal congestion, nasal drainage Eye Exam: bilateral eye: normal inspection, PERRL, EOMI Neck: Present: non-tender, full range of motion, supple, normal inspection Back Exam: Present: normal inspection, no CVA tenderness, no vertebral tenderness Breasts: Present: Exam deferred Respiratory: Present: respiratory distress, decreased breath sounds, accessory muscle use, rhonchi, stridor, wheezing, expiration (prolonged) Cardiovascular/Chest: Present: no gallop, no JVD, no murmur, no rub, tachycardia, edema. Absent: JVD Peripheral Pulses: carotid (R): 2+, carotid (L): 2+, radial (R): 2+, radial (L): 2+ Abdomen: Present: Normal bowel sounds, obese, tender - mid epigastrium /Rectal: Present: Exam deferred Extremity: Present: normal range of motion, non-tender, normal inspection, lower extremity edema, pedal edema Skin Exam: Present: warm/dry, no cyanosis, pallor, other - febrile Lymphatic: Present: no adenopathy Neurologic: Present: meat pumper II-XII nml as tested, alert, oriented x 3, sensory deficit - feet, depressed affect Appearance: Present: disheveled, other - appears acutely ill. Eye contact: Present: cooperative, good eye contact, normal speech Thoughts: Present: normal thought pattern, no apparent hallucination Assessment/Plan - Narrative Narrative: Nora Irene is a 47-year-old female well known to me who presented to the office today with fever and shaking chills audible wheezing coughing and in mild respiratory distress using secondary muscles or respiration. She was seen in the emergency room on May 30 and treated with prednisone and Zithromax. She refused admission at that time. She has failed outpatient treatment and has not improved. She presents today requesting admission to get over this infectious process. She has a long-standing history of COPD and asthma which is fairly well controlled with oral inhaler medicines. She is morbidly obese decreased mobility problems for her. She also is a diabetic which is controlled with oral hypoglycemics. She has hypertension and hyperlipidemia which are well-controlled. She is admitted to acute care. She will receive serial short therapy treatments daily. I'll repeat her blood work and chest x-ray on admission, please see orders. I'll also put on incentive spirometry. She blood and sputum cultures were obtained and a UA is obtained that we'll have a IT QUALITY ASSURANCE ANALYST done if appropriate. Will receive IV antibiotics using Rocephin and Levaquin. 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 Qualifiers: (4) Cough Problem: Acute (5) Morbid obesity Problem: Chronic (6) Hypertension Problem: Acute Qualifiers: Hypertension type: essential hypertension Qualified Code(s): I10 - Essential (primary) hypertension (7) Diabetes mellitus Problem: Chronic Qualifiers: Diabetes mellitus type: type 2 Diabetes mellitus superintendent marine oil terminal insulin use: without [place] [facility] use Diabetes mellitus complication status: with neurologic complications Diabetes mellitus complication detail: with polyneuropathy Qualified Code(s): E11.42 - Type 2 diabetes mellitus with diabetic polyneuropathy (8) Bipolar disorder Problem: Chronic Qualifiers: Active/Remission status: currently active Current episode severity: moderate
[2018-06-05 17:27] LABS: Hematocrit 37.7 % (37.0-47.0); Hemoglobin 11.7 gm/dL (12.5-16.0); Mean Cell Volume 83.2 fl (78-100); Mean Corpuscular Hemoglobin 25.8 pg (27-31); Neutrophil # 16.5 K/mm3 (1.3-6.0); Neutrophil % 80.6 % (42-75.0); Platelet Count 529 K/mm3 (150-450); Red Blood Count 4.53 M/mm3 (4.2-5.4); Red Cell Distribution Width 16.7 % (11.5-14.0); White Blood Count 20.4 K/mm3 (4.0-10.5)
[2018-06-05] MEDS ORDERED: ONDANSETRON 8 MG TAB.RAPDIS PO PRN (17:31)
[2018-06-05 17:32] LABS: Albumin * 2.5 gm/dl (3.4-5.0); BUN/Creatinine Ratio 15.4 (9.0-21.6); Bilirubin, Total 0.2 mg/dL (0.0-1.1); Ca. Corrected For Albumin 9.8 mg/dL (8.4-10.2); Calcium * 8.9 mg/dL (7.9-10.9); Carbon Dioxide 30.1 mmol/L (24-32.6); Potassium 4.1 mmol/L (3.4-4.6); Total Protein 7.1 gm/dL (6.2-8.2)
[2018-06-05] MEDS: ALBUTEROL SULFATE 2.5 MG/0.5 ML VIAL.NEB IH SCH (18:02)
[2018-06-05] MEDS: NORMAL SALINE 1,000 ML IV PRN (19:29)
[2018-06-05] MEDS: ENOXAPARIN SODIUM 40 MG/0.4 ML SYRG SC SCH (19:33)
[2018-06-05] MEDS: METHYLPREDNISOLONE SOD SUCC/PF 40 MG/ML VIAL IV SCH ×2 (19:33→23:30)
[2018-06-05] MEDS: metFORMIN HCL 500 MG TABLET PO SCH (19:34)
[2018-06-05] MEDS: GABAPENTIN 400 MG CAPSULE PO SCH ×2 (19:35→22:18)
[2018-06-05] MEDS: DEXTROSE IV SCH (20:32)
[2018-06-05] MEDS: LEVOFLOXACIN IV SCH (20:32)
[2018-06-05] MEDS: SIMVASTATIN 20 MG TABLET PO SCH (22:18)
[2018-06-05] MEDS: AMITRIPTYLINE HCL 50 MG TABLET PO SCH (22:18)
[2018-06-05] MEDS: FAMOTIDINE 20 MG TABLET PO SCH (22:18)
[2018-06-06 03:00] LABS: Urine Bilirubin Negative (NEGATIVE); Urine Blood Negative /ul (NEGATIVE); Urine Ketone Negative (NEGATIVE); Urine Nitrite Negative (NEGATIVE); Urine Protein Negative (NEGATIVE); Urine Specific Gravity 1.015 SP.GR. (1.005-1.010); Urine Urobilinogen Normal (NORMAL); Urine pH 8.5 pH (5.0-7.0)
[2018-06-06 03:10] LABS: Urine Appearance Clear (CLEAR); Urine Bacteria 1+; Urine Color Yellow; Urine RBC None Seen /hpf (0-5); Urine WBC None Seen /hpf (0-5)
[2018-06-06] MEDS: METHYLPREDNISOLONE SOD SUCC/PF 40 MG/ML VIAL IV SCH ×4 (05:04→23:54)
[2018-06-06] MEDS: HYDROcodone/ACETAMINOPHEN 1 EACH TABLET PO PRN ×3 (05:59→20:49)
[2018-06-06] MEDS: ALBUTEROL SULFATE 2.5 MG/0.5 ML VIAL.NEB IH SCH ×4 (06:04→18:19)
[2018-06-06] MEDS: LEVOTHYROXINE SODIUM 125 MCG TABLET PO SCH (07:21)
[2018-06-06] MEDS: GLIMEPIRIDE 4 MG TABLET PO SCH (09:35)
[2018-06-06] MEDS: GABAPENTIN 400 MG CAPSULE PO SCH ×4 (09:35→20:44)
[2018-06-06] MEDS: CITALOPRAM HYDROBROMIDE 20 MG TABLET PO SCH (09:35)
[2018-06-06] MEDS: metFORMIN HCL 500 MG TABLET PO SCH ×2 (09:35→16:46)
[2018-06-06] MEDS: LISINOPRIL 10 MG TABLET PO SCH (09:36)
[2018-06-06] MEDS: FAMOTIDINE 20 MG TABLET PO SCH ×2 (09:36→20:44)
[2018-06-06] MEDS: sitaGLIPtin PHOSPHATE 50 MG TABLET PO SCH (09:36)
[2018-06-06] MEDS: ENOXAPARIN SODIUM 40 MG/0.4 ML SYRG SC SCH (15:49)
[2018-06-06] MEDS: DEXTROSE IV SCH (16:40)
[2018-06-06] MEDS: LEVOFLOXACIN IV SCH (16:40)
--- NOTE | 2018-06-06 20:22 | PN ---
Subjective - Date and Time Seen Date: 06/06/18 Time: 08:30 Subjective Narrative: Nora is much improved this morning. She is no longer laboring to breathe or using secondary muscles of respiration. She is coughing that is nonproductive still. The chest x-ray shows a worsening consolidation in the right lung as compared to the one done a week ago. The combination of IV antibiotics, respiratory therapy treatments, and IV steroids has turned the corner with her. She will need continued intensive respiratory therapy and IV antibiotic therapy for a couple of more days. Started her back on some of her diabetic medication as her blood sugar was 156 this morning. She continues to have a leukocytosis with a left shift in the differential. Some of this may be from steroid course that she just finished that I suspect much of it is from this consolidated pneum onia in her right lung. Objective - Review of Systems Generalized/Overall Review: Reports: Chills, Fever, Malaise EENTM: Reports: No Symptoms Reported Respiratory: Reports: Cough, Shortness of Breath, Stridor, Wheezing Cardiac: Reports: No Symptoms Reported Abdominal: Reports: No Symptoms Reported, Other - decreased appetite Genitourinary Symptoms: Reports: No Symptoms Reported Musculoskeletal Complaints: Reports: No Symptoms Reported Neurological: Reports: No Symptoms Reported Skin: Reports: No Symptoms Reported Endocrine: Reports: No Symptoms Reported - Vitals Vitals: Last Vital Signs Temp 36.6 C 06/06/18 14:22 Pulse 87 06/06/18 20:00 Resp 20 06/06/18 20:00 BP 165/105 H 06/06/18 14:22 Pulse Ox 94 06/06/18 19:50 - Abnormal Lab Findings Abnormal Lab Findings: Abnormal Lab Results 06/05/18 Range/Units 20:20 Ur Epithelial Cells 5-10 H (0-5) /hpf Urine Bacteria 1+ H (NONE) Urine Comment Culture ordered L - EKG/Xray Findings EKG read: Interp. by me XRAY: chest Interpretation: Reviewed by me - Exam Constitutional: Present: Alert, Oriented x3, Cooperative, Well developed, Well nourished, Mild distress, Middle aged, Morbidly obese ENT Exam: Present: normal ENT inspection, hearing grossly normal, pharynx no rmal, TMs normal Neck: Present: non-tender, full range of motion Breasts: Present: Exam deferred Respiratory: Present: no respiratory distress - much improved from admission, no accessory muscle use, wheezing Cardiovascular/Chest: Present: normal peripheral pulses, regular rate, rhythm, no chest tenderness, no edema, no gallop, no JVD, no murmur, no rub Abdomen: Present: Normal bowel sounds, soft, nontender, nondistended, no hepatospenomegaly, no masses, obese /Rectal: Present: Exam deferred, External genitalia normal Extremity: Present: normal range of motion, non-tender, normal inspection, no pedal edema, no calf tenderness, normal capillary refill Skin Exam: Present: normal color, warm/dry, no cyanosis Lymphatic: Present: no adenopathy Neurologic: Present: sales analyst II-XII nml as tested, no motor/sensory deficits Appearance: Present: appropriate appearance Eye contact: Present: cooperative, good eye contact Thoughts: Present: normal thought pattern, no apparent hallucination Assessment/Plan Plan Narrative: 1 Add flutter device to help mobilize secretions (Trumpet) 2. Continue IV antibiotics and steroids 3. Dr. Vargas will manage in my absence. I reviewed her case with him this morning. 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 Qualifiers: (4) Cough Problem: Acute (5) Morbid obesity Problem: Chronic (6) Hypertension Problem: Acute Qualifiers: Hypertension type: essential hypertension Qualified Code(s): I10 - Essential (primary) hypertension (7) Diabetes mellitus Problem: Chronic Qualifiers: Diabetes mellitus type: type 2 Diabetes mellitus roasterman insulin use: without roasterman use Diabetes mellitus complication status: with neurologic complications Diabetes mellitus complication detail: with polyneuropathy Qualified Code(s): E11.42 - Type 2 diabetes mellitus with diabetic polyneuropathy (8) Bipolar disorder Problem: Chronic Qualifiers: Active/Remission status: currently active Current episode severity: moderate
[2018-06-06] MEDS: AMITRIPTYLINE HCL 50 MG TABLET PO SCH (20:46)
[2018-06-06] MEDS: SIMVASTATIN 20 MG TABLET PO SCH (20:46)
[2018-06-07] MEDS: NORMAL SALINE 1,000 ML IV PRN (04:46)
[2018-06-07] MEDS: METHYLPREDNISOLONE SOD SUCC/PF 40 MG/ML VIAL IV SCH ×4 (05:17→23:49)
[2018-06-07] MEDS: ALBUTEROL SULFATE 2.5 MG/0.5 ML VIAL.NEB IH SCH ×4 (06:07→18:11)
[2018-06-07] MEDS: LEVOTHYROXINE SODIUM 125 MCG TABLET PO SCH (06:22)
[2018-06-07] MEDS: HYDROcodone/ACETAMINOPHEN 1 EACH TABLET PO PRN ×3 (06:24→22:15)
[2018-06-07] MEDS: CITALOPRAM HYDROBROMIDE 20 MG TABLET PO SCH (08:07)
[2018-06-07] MEDS: GABAPENTIN 400 MG CAPSULE PO SCH ×4 (08:08→20:55)
[2018-06-07] MEDS: GLIMEPIRIDE 4 MG TABLET PO SCH (08:09)
[2018-06-07] MEDS: metFORMIN HCL 500 MG TABLET PO SCH ×2 (08:09→16:51)
[2018-06-07] MEDS: sitaGLIPtin PHOSPHATE 50 MG TABLET PO SCH (08:10)
[2018-06-07] MEDS: LISINOPRIL 10 MG TABLET PO SCH (08:11)
[2018-06-07] MEDS: FAMOTIDINE 20 MG TABLET PO SCH ×2 (08:11→20:56)
--- NOTE | 2018-06-07 11:25 | PN ---
Subjective - Date and Time Seen Date: 06/07/18 Time: 11:21 Subjective Narrative: Patient is afebrile. Objective - Review of Systems Generalized/Overall Review: Denies: Weakness, Chills, Fever Respiratory: Reports: Cough. Denies: Shortness of Breath, Wheezing Cardiac: Denies: Chest Pain, Edema, Palpitations Abdominal: Denies: Nausea, Vomiting Genitourinary Symptoms: Denies: Urgency, Frequency - Vitals Vitals: Last Vital Signs Temp 36.5 C 06/07/18 06:35 Pulse 74 06/07/18 10:53 Resp 16 06/07/18 10:53 BP 164/88 H 06/07/18 08:11 Pulse Ox 96 06/07/18 10:43 - Exam Constitutional: Present: Alert, Oriented x3, Cooperative ENT Exam: Present: hearing grossly normal Neck: Present: supple Respiratory: Present: decreased breath sounds, crackles, No wheezing Cardiovascular/Chest: Present: regular rate, rhythm, no JVD, no murmur Abdomen: Present: Normal bowel sounds, soft, nontender, obese Extremity: Present: no pedal edema, no calf tenderness Assessment/Plan Plan Narrative: Will continue with IV antibiotics and present management. Will do follow up labs in the morning. - Problems/Diagnosis (1) Pneumonia Problem: Acute (2) COPD (chronic obstructive pulmonary disease) Problem: Chronic (3) Diabetes mellitus Problem: Chronic Qualifiers: Diabetes mellitus type: type 2 Diabetes mellitus longterm insulin use: without lobsterman use Diabetes mellitus complication status: with neurologic complications Diabetes mellitus complication detail: with polyneuropathy Qualified Code(s): E11.42 - Type 2 diabetes mellitus with diabetic polyneuropathy (4) Hypothyroidism Problem: Chronic Qualifiers: Hypothyroidism type: due to Popeye's thyroiditis Qualified Code(s): E03.8 - Other specified hypothyroidism; E06.3 - Autoimmune thyroiditis (5) Morbid obesity Problem: Chronic (6) Bipolar disorder Problem: Chronic Qualifiers: Active/Remission status: currently active Current episode severity: moderate
[2018-06-07] MEDS: ENOXAPARIN SODIUM 40 MG/0.4 ML SYRG SC SCH (15:33)
[2018-06-07] MEDS: LEVOFLOXACIN IV SCH (16:18)
[2018-06-07] MEDS: DEXTROSE IV SCH (16:18)
[2018-06-07] MEDS ORDERED: LISINOPRIL 20 MG TABLET PO SCH ×2 (19:45→23:30)
[2018-06-07] MEDS: NICOTINE 21 MG PATC TD SCH (19:51)
[2018-06-07] MEDS: AMITRIPTYLINE HCL 50 MG TABLET PO SCH (20:56)
[2018-06-07] MEDS: SIMVASTATIN 20 MG TABLET PO SCH (20:57)
[2018-06-08 05:31] LABS: Hematocrit 35.5 % (37.0-47.0); Hemoglobin 10.8 gm/dL (12.5-16.0); Mean Cell Volume 84.1 fl (78-100); Mean Corpuscular Hemoglobin 25.6 pg (27-31); Mean Corpuscular Hgb Conc 30.4 g/dl (32-36); Mean Platelet Volume 8.9 fl (8-12.5); Platelet Count 589 K/mm3 (150-450); Red Blood Count 4.22 M/mm3 (4.2-5.4); Red Cell Distribution Width 16.7 % (11.5-14.0); White Blood Count 15.3 K/mm3 (4.0-10.5)
[2018-06-08] MEDS: METHYLPREDNISOLONE SOD SUCC/PF 40 MG/ML VIAL IV SCH ×4 (05:38→23:27)
[2018-06-08 05:41] LABS: Total Cells Counted 100
[2018-06-08 05:42] LABS: Anion Gap 9.7 mmol/L (6.8-13.8); BUN/Creatinine Ratio 21.7 (9.0-21.6); Calcium * 8.5 mg/dL (7.9-10.9); Carbon Dioxide 28.7 mmol/L (24-32.6); Estimated Creat Clear 67.8; Potassium 4.4 mmol/L (3.4-4.6)
[2018-06-08 05:57] LABS: Band 2 % (0-2.0); Immature Granulocyte 5 (0-1); Lymphocyte 2 % (20-51); Monocyte 5 % (0-9); Neutrophil 86 % (42-75); Neutrophil # 13.2 K/mm3 (1.3-6.0)
[2018-06-08 05:58] LABS: Platelet Estimate Increased (NORMAL); RBC Morphology Normal (NORMAL)
[2018-06-08] MEDS: HYDROcodone/ACETAMINOPHEN 1 EACH TABLET PO PRN ×3 (06:16→19:36)
[2018-06-08] MEDS: ALBUTEROL SULFATE 2.5 MG/0.5 ML VIAL.NEB IH SCH ×4 (06:18→18:08)
[2018-06-08] MEDS: LEVOTHYROXINE SODIUM 125 MCG TABLET PO SCH (06:30)
[2018-06-08] MEDS: GABAPENTIN 400 MG CAPSULE PO SCH ×4 (08:09→20:52)
[2018-06-08] MEDS: FAMOTIDINE 20 MG TABLET PO SCH ×2 (08:09→20:51)
[2018-06-08] MEDS: LISINOPRIL 10 MG TABLET PO SCH (08:09)
[2018-06-08] MEDS: sitaGLIPtin PHOSPHATE 50 MG TABLET PO SCH (08:10)
[2018-06-08] MEDS: GLIMEPIRIDE 4 MG TABLET PO SCH (08:10)
[2018-06-08] MEDS: metFORMIN HCL 500 MG TABLET PO SCH ×2 (08:10→16:31)
[2018-06-08] MEDS: CITALOPRAM HYDROBROMIDE 20 MG TABLET PO SCH (08:10)
--- NOTE | 2018-06-08 12:43 | PN ---
Subjective - Date and Time Seen Date: 06/08/18 Time: 12:34 Subjective Narrative: Patient is doing better. Her WBC is down to 15. BP is high. Objective - Review of Systems Generalized/Overall Review: Denies: Weakness, Chills, Fever Respiratory: Reports: Cough, Shortness of Breath Cardiac: Denies: Chest Pain, Edema, Palpitations Abdominal: Denies: Nausea, Vomiting Genitourinary Symptoms: Denies: Urgency, Frequency - Vitals Vitals: Last Vital Signs Temp 36.5 C 06/08/18 11:02 Pulse 75 06/08/18 11:02 Resp 16 06/08/18 11:02 BP 155/83 H 06/08/18 11:02 Pulse Ox 94 06/08/18 11:02 - Abnormal Lab Findings Abnormal Lab Findings: Abnormal Lab Results 06/08/18 06/08/18 Range/Units 05:10 05:10 WBC 15.3 H D (4.0-10.5) K/mm3 Hgb 10.8 L (12.5-16.0) gm/dL Hct 35.5 L (37.0-47.0) % MCH 25.6 L (27-31) pg MCHC 30.4 L (32-36) g/dl RDW 16.7 H (11.5-14.0) % Plt Count 589 H (150-450) K/mm3 Neutrophils % (Manual) 86 H (42-75) % Lymphocytes % (Manual) 2 L (20-51) % Immature Granulocytes 5 H (0-1) Neutrophils # (Manual) 13.2 H (1.3-6.0) K/mm3 Lymphocytes # (Manual) 0.3 L (1.5-3.5) k/mm3 Platelet Estimate Increased H (NORMAL) BUN/Creatinine Ratio 21.7 H (9.0-21.6) Random Glucose 172 H D (70-110) mg/dL - Exam Constitutional: Present: Alert, Oriented x3, Cooperative ENT Exam: Present: hearing grossly normal Neck: Present: supple Respiratory: Present: decreased breath sounds, No rales, No wheezing, other Cardiovascular/Chest: Present: regular rate, rhythm, no JVD, no murmur Abdomen: Present: Normal bowel sounds, soft, nontender, nondistended Extremity: Present: no calf tenderness, pedal edema Assessment/Plan - Problems/Diagnosis (1) Pneumonia Problem: Acute Narrative: WBC improving. Continue wit IV antibiotics. (2) COPD (chronic obstructive pulmonary disease) Problem: Chronic (3) Diabetes mellitus Problem: Chronic Qualifiers: Diabetes mellitus type: type 2 Diabetes mellitus terminal gauger supervisor insulin use: without senior living use Diabetes mellitus complication status: with neurologic complications Diabetes mellitus complication detail: with polyneuropathy Qualified Code(s): E11.42 - Type 2 diabetes mellitus with diabetic polyneuropathy (4) Hypothyroidism Problem: Chronic Qualifiers: Hypothyroidism type: due to Popeye's thyroiditis Qualified Code(s): E03.8 - Other specified hypothyroidism; E06.3 - Autoimmune thyroiditis (5) Morbid obesity Problem: Chronic (6) Bipolar disorder Problem: Chronic Qualifiers: Active/Remission status: currently active Current episode severity: moderate (7) Hypertension Problem: Chronic Qualifiers: Hypertension type: essential hypertension Qualified Code(s): I10 - Essential (primary) hypertension Narrative: will increase Lisinopril dose.
[2018-06-08] MEDS: ENOXAPARIN SODIUM 40 MG/0.4 ML SYRG SC SCH (15:51)
[2018-06-08] MEDS: DEXTROSE IV SCH (16:30)
[2018-06-08] MEDS: LEVOFLOXACIN IV SCH (16:30)
[2018-06-08] MEDS: NICOTINE 21 MG PATC TD SCH (19:33)
[2018-06-08] MEDS: AMITRIPTYLINE HCL 50 MG TABLET PO SCH (20:51)
[2018-06-08] MEDS: LISINOPRIL 20 MG TABLET PO SCH (20:53)
[2018-06-08] MEDS: SIMVASTATIN 20 MG TABLET PO SCH (20:54)
[2018-06-08] MEDS ORDERED: LISINOPRIL 40 MG TABLET PO SCH (23:15)
[2018-06-08] MEDS ORDERED: LISINOPRIL 10 MG TABLET ONE (23:21)
[2018-06-09] MEDS: HYDROcodone/ACETAMINOPHEN 1 EACH TABLET PO PRN ×2 (04:18→12:17)
[2018-06-09] MEDS: METHYLPREDNISOLONE SOD SUCC/PF 40 MG/ML VIAL IV SCH ×2 (05:32→12:14)
[2018-06-09] MEDS: ALBUTEROL SULFATE 2.5 MG/0.5 ML VIAL.NEB IH SCH ×2 (06:07→11:04)
[2018-06-09] MEDS: LEVOTHYROXINE SODIUM 125 MCG TABLET PO SCH (06:42)
[2018-06-09] MEDS: GLIMEPIRIDE 4 MG TABLET PO SCH (08:08)
[2018-06-09] MEDS: metFORMIN HCL 500 MG TABLET PO SCH (08:08)
[2018-06-09] MEDS: CITALOPRAM HYDROBROMIDE 20 MG TABLET PO SCH (08:08)
[2018-06-09] MEDS: FAMOTIDINE 20 MG TABLET PO SCH (08:08)
[2018-06-09] MEDS: GABAPENTIN 400 MG CAPSULE PO SCH ×2 (08:08→12:17)
[2018-06-09] MEDS: LISINOPRIL 20 MG TABLET PO SCH (08:08)
[2018-06-09] MEDS: sitaGLIPtin PHOSPHATE 50 MG TABLET PO SCH (08:08)
--- NOTE | 2018-06-09 10:43 | DS ---
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 Qualifiers: Emphysema type: panlobular Qualified Code(s): J43.1 - Panlobular emphysema (4) Cough Problem: Acute (5) Morbid obesity Problem: Chronic (6) Hypertension Problem: Chronic Qualifiers: Hypertension type: essential hypertension Qualified Code(s): I10 - Essential (primary) hypertension (7) Diabetes mellitus Problem: Chronic Qualifiers: Diabetes mellitus type: type 2 Diabetes mellitus care home insulin use: without truck terminal manager use Diabetes mellitus complication status: with neurologic complications Diabetes mellitus complication detail: with polyneuropathy Qualified Code(s): E11.42 - Type 2 diabetes mellitus with diabetic polyneuropathy (8) Bipolar disorder Problem: Chronic Qualifiers: Active/Remission status: currently active Current episode severity: moderate (9) Asthma Problem: Acute Qualifiers: Asthma severity: severe Asthma persistence: persistent Asthma complication type: with acute exacerbation Qualified Code(s): J45.51 - Severe persistent asthma with (acute) exacerbation Description of Stay: Nora Irene is a 47-year-old female well known to me. She presented to the office with marked shortness of breath. She had been seen in the emergency room on May 30 and was treated with Zithromax. Her condition has worsened. She continues to be very dyspneic tachypnea and having a nonproductive cough. A chest x-ray in the ER did show a right lung pneumonia. Repeat chest x-ray on the day of admission showed worsening of that pneumonia involving the whole right lung. She had been on oral prednisone from the emergency room visit as well. Her white count was 20,000 on admission and is uncertain as to how much of that is from the pneumonia, which is from the steroids. She also had a bandemia of 15%. She had coarse audible rhonchi and wheezes with diminished breath sounds in the right lung but not moving much air in either lung. She was started on IV antibiotics, aggressive respiratory therapy, IV Solu-Medrol. The following morning she was improved clinically with virtually no wheezing but was still some rhonchi and diminished breath sounds in the right chest and notes when the chest x-ray report was available showing that the pneumonia was actually worse than they have been in a week earlier. Through the weekend she is continue to receive aggressive respiratory therapy treatments, IV antibiotics, IV steroids. Yesterday her blood pressure spiked up slightly and Dr. Vargas escape her 40 mg of lisinopril by mouth which has helped her blood pressure. She also had quite a bit of nausea on admission which is now resolved. She is not able to eat a consistent carb diet. This morning she is in good spirits and feeling much improved and is ready to go home. She is discharged to home and is to follow-up with me in 2 weeks in the office. Discharge medications will include Ceftin 500 mg twice a day for another 10 days. The sputum culture has grown out staph aureus but it does not appear to be MRSA. She will continue respiratory therapy treatments at home. She is to stay away from all primary or secondary sources of tobacco, smoke or other fumes. She is wearing a 21 mg nicotine patch. Her disposition is improved. Her prognosis is fair. Procedures Performed: none Results and Findings: Pending Mircobiology Results 06/05/18 17:37 Blood Blood Culture - Preliminary NO GROWTH AFTER 48 HOURS 06/05/18 17:07 Blood Blood Culture - Preliminary NO GROWTH AFTER 48 HOURS Lab Pending Results 06/05/18 17:07: WBC 20.4 H, RBC 4.53, Hgb 11.7 L, Hct 37.7, MCV 83.2, MCH 25.8 L, MCHC 31.0 L, RDW 16.7 H, Plt Count 529 H, MPV 9.0, Immature Gran % (Auto) 1.50 H, Immature Gran # (Auto) 0.31 H, Neutrophils % 80.6 H, Lymphocytes % 11.5 L, Monocytes % 5.5, Eosinophils % 0.7, Basophils % 0.2, Nucleated RBC % 0.0, Neutrophils # 16.5 H, Lymphocytes # 2.35, Monocytes # 1.1 H, Eosinophils # 0.1, Absolute Basophils 0.1 06/05/18 17:07: Sodium 131 L, Plasma Sodium 131, Potassium 4.1 D, Chloride 96 L, Carbon Dioxide 30.1, Anion Gap 9.0, BUN 12, Creatinine 0.78, Est GFR (Non-Af Amer) 83, BUN/Creatinine Ratio 15.4, Random Glucose 94, Calcium 8.9, Calcium Adj for Albumin 9.8, Total Bilirubin 0.2, AST 19, ALT 37, Alkaline Phosphatase 145, Total Protein 7.1, Albumin 2.5 L 06/05/18 20:20: Urine Color Yellow, Urine Appearance Clear, Urine pH 8.5, Ur Specific [place] 1.015, Urine Protein Negative, Urine Glucose (UA) Negative, Urine Ketones Negative, Urine Blood Negative, Urine Nitrate Negative, Urine Bilirubin Negative, Urine Urobilinogen Normal, Ur Leukocyte Esterase Negative, Urine RBC None seen, Urine WBC None seen, Ur Epithelial Cells 5-10 H, Urine Bacteria 1+ H, Urine Comment Culture ordered L 06/08/18 05:10: WBC 15.3 H D, RBC 4.22, Hgb 10.8 L, Hct 35.5 L, MCV 84.1, MCH 25.6 L, MCHC 30.4 L, RDW 16.7 H, Plt Count 589 H, MPV 8.9, Neutrophils % (Manual) 86 H, Band Neuts % (Manual) 2, Lymphocytes % (Manual) 2 L, Monocytes % (Manual) 5, Immature Granulocytes 5 H, Neutrophils # (Manual) 13.2 H, Lymphocytes # (Manual) 0.3 L, Monocytes # (Manual) 0.8, Platelet Estimate Increased H, RBC Morphology Normal 06/08/18 05:10: Sodium 136, Plasma Sodium 137, Potassium 4.4, Chloride 102, Carbon Dioxide 28.7, Anion Gap 9.7, BUN 18, Creatinine 0.83, Est GFR (Non-Af Amer) 78, BUN/Creatinine Ratio 21.7 H, Random Glucose 172 H D, Calcium 8.5 Discharge Location: Home Disposition: Home self-care Condition: Fair Discharge Activity: Activity as tolerated Discharge Diet: Consistent carbs Referrals: Sergio Whitt DO [Primary Care Provider] - Additional Patient Instructions (free text): Check your blood sugars twice a day. Check before breakfast and supper. Prescriptions (Any new or edited meds): Cefuroxime Axetil [Ceftin] 500 mg PO BID #20 tab guaiFENesin [Guaifenesin ER] 600 mg PO BID #60 tab.er.12h predniSONE [Prednisone] 10 mg PO BID #30 tab.ds.pk sitaGLIPtin PHOSPHATE [Januvia] 100 mg PO DAILY #30 tablet Complete Home Medications List: Complete Home Medication List: Albuterol Sulfate [Proair Hfa] 1 - 2 puff IH Q4H PRN #1 inhaler 05/17/16 Glimepiride 4 mg PO DAILY 01/10/18 Pravastatin Sodium 40 mg PO DAILY 01/10/18 Albuterol Sulfate [Albuterol Sulfate 0.63 MG/3ML] 0.25 mg IH Q6H PRN 03/12/18 gabapentin 800 mg tablet 800 mg PO QID #120 tab 03/27/18 ibuprofen 800 mg tablet 800 mg PO QID #120 tab 03/27/18 lisinopril 10 mg tablet 10 mg PO DAILY #30 tab 03/27/18 metformin 500 mg tablet 500 mg PO BID #120 tab 03/27/18 amitriptyline 150 mg tablet 150 mg PO HS #30 tab 05/20/18 citalopram 40 mg tablet 20 mg PO DAILY tab 05/20/18 hydrocodone 7.5 mg-acetaminophen 325 mg tablet 1 tab PO .COMPLEX PRN #150 tab 05/20/18 levothyroxine 125 mcg tablet 125 mcg PO DAILY #30 tab 05/20/18 Acetaminophen [Tylenol] 650 mg PO Q4H PRN tablet 06/09/18 Albuterol Sulfate [Albuterol Sulfate 2.5 MG/0.5ML] 2.5 mg IH QIDRT vial.neb 06/09/18 Cefuroxime Axetil [Ceftin] 500 mg PO BID #20 tab 06/09/18 Famotidine [Pepcid] 20 mg PO BID tablet 06/09/18 Nicotine [Nicoderm] 21 mg TD Q24H patch.td24 06/09/18 guaiFENesin [Guaifenesin ER] 600 mg PO BID #60 tab.er.12h 06/09/18 predniSONE [Prednisone] 10 mg PO BID #30 tab.ds.pk 06/09/18 sitaGLIPtin PHOSPHATE [Januvia] 100 mg PO DAILY #30 tablet 06/09/18
[2018-06-09] MEDS ORDERED: amLODIPine BESYLATE 10 MG TABLET PO ONE (13:42)
[2018-06-09 13:58] VITALS: BP 185/118
== END 2018-06-09 14:10 | disposition left against medical advice (07) | DRG 178 ==
LOC: MS
PROVIDERS: ADMIT Family Medicine; ATTEND Internal Medicine
CPT/HCPCS: 36415; 71020; 71046; 80048; 80053; 81001; 82947; 85007; 85025; 87040; 87070; 87077; 87086; 87186; 87449; 90686; 93005; 94640; 94664

== ENCOUNTER 2018-07-29 07:04 | Observation (INO) ==
--- NOTE | 2018-07-29 07:16 | ERNOTE ---
<Portillo Saucedo - Last Filed: 07/29/18 07:53> Head Injury HPI - General Injury to: head Time Seen by Provider: 07/29/18 07:07 Source: EMS Exam Limitations: clinical condition - Immun/Allergies/Home Medications Immunization: IMMUNIZATION HX Immunizations Up to Date Yes History of Influenza Vaccine No Hx Pneumococcal Vaccination Yes Allergies/Adverse Reactions: Allergies Allergy/AdvReac Type Severity Reaction Status Date / Time No Known Drug Allergies Allergy Verified 06/17/18 13:19 Home Medications: HOME MEDICATIONS Albuterol Sulfate [Proair Hfa] 1 - 2 puff IH Q4H PRN #1 inhaler 05/17/16 [Last Taken 06/05/18 13:00] Albuterol Sulfate [Albuterol Sulfate 0.63 MG/3ML] 0.25 mg IH Q6H PRN 03/12/18 [Last Taken 06/05/18 14:00] ibuprofen 800 mg tablet 800 mg PO QID #120 tab 03/27/18 [Last Taken 06/05/18 12:00] metformin 500 mg tablet 500 mg PO BID #120 tab 03/27/18 [Last Taken 06/02/18] amitriptyline 150 mg tablet 150 mg PO HS #30 tab 05/20/18 [Last Taken 06/04/18] levothyroxine 125 mcg tablet 125 mcg PO DAILY #30 tab 05/20/18 [Last Taken 06/02/18] Acetaminophen [Tylenol] 650 mg PO Q4H PRN tab 06/09/18 [Last Taken Unknown] Albuterol Sulfate [Albuterol Sulfate 2.5 MG/0.5ML] 2.5 mg INHALATION QIDRT vial.neb 06/09/18 [Last Taken Unknown] Cefuroxime Axetil [Ceftin] 500 mg PO BID #20 tab 06/09/18 [Last Taken Unknown] guaiFENesin [Guaifenesin ER] 600 mg PO BID #60 tab.er.12h 06/09/18 [Last Taken Unknown] predniSONE [Prednisone] 10 mg PO BID #30 tab.ds.pk 06/09/18 [Last Taken Unknown] pravastatin 40 mg tablet 40 mg PO DAILY #30 tab 06/10/18 [Last Taken Unknown] amlodipine 5 mg tablet 5 mg PO DAILY #30 tab 06/12/18 [Last Taken 06/13/18 13:21] citalopram 40 mg tablet 20 mg PO DAILY #15 tab 06/13/18 [Last Taken Unknown] blood sugar diagnostic strips See Dose Instructions .ROUTE .MEDSUPPLY #100 ea 06/17/18 [Last Taken Unknown] lisinopril 40 mg tablet 20 mg PO DAILY #30 tab 06/17/18 [Last Taken Unknown] quetiapine 50 mg tablet 50 mg PO BID #60 tab 06/17/18 [Last Taken Unknown] famotidine 20 mg tablet 20 mg PO BID #60 tab 06/18/18 [Last Taken Unknown] gabapentin 800 mg tablet 800 mg PO QID #120 tab 07/22/18 [Last Taken Unknown] hydrocodone 7.5 mg-acetaminophen 325 mg tablet 1 tab PO .COMPLEX PRN #150 tab 07/22/18 [Last Taken Unknown] - History of Present Illness Narrative: Pt brought in by EMS with acute mental status changes this morning. Family stated that the patient fell down some stairs last week but has not shown symptoms until now. Pt is vomiting, confused and agitated and has lost bowel control. Occurred: last week Location Occurred: home Severity: moderate, severe Method of Injury: Reports: fell - down stairs Reason for Fall: Reports: unknown Review of Systems - Narrative Narrative: unable to be obtained due to MS changes - Review of Systems Constitutional: Absent: recent illness Respiratory: Absent: shortness of breath Cardiology: Absent: chest pain Gastrointestinal/Abdominal: Present: nausea, vomiting Medical History (Last Reviewed 07/29/18 @ 07:15 by Portillo Saucedo DO) Conjunctivitis due to adenovirus, both eyes (Acute) Hypothyroidism (Chronic) Onset Date: Unknown Hyperglyceridemia (Chronic) Onset Date: Unknown Hyperlipidemia due to dietary fat intake (Chronic) Onset Date: Unknown Diabetes mellitus (Chronic) Onset Date: Unknown COPD (chronic obstructive pulmonary disease) (Chronic) Onset Date: Unknown Bipolar disorder (Chronic) Onset Date: Unknown Arthritis of knee (Chronic) Onset Date: Unknown Back pain Surgical History: Surgical History (Last Reviewed 07/29/18 @ 07:15 by Portillo Saucedo DO) History of total abdominal hysterectomy and bilateral salpingo-oophorectomy Onset Date: Unknown Age 28 Hx of cholecystectomy Onset Date: Unknown Age 35 Hx of tubal ligation Onset Date: Unknown Age 26 Family History: Family History (Last Reviewed 06/05/18 @ 15:43 by Concepción Coronel LPN) Mother , @ age 49; unknown to cause No problems noted. Social History: Preferred Language Fijian Smoking Status Current every day smoker Psych History Hx of Anxiety,Hx of Depression,Hx of Bipolar Disorder (Last Updated 06/17/18 @ 15:26 by Sergio Whitt DO) No Social History Section defined Physical Exam - Physical Exam General Appearance: Present: moderate distress, anxious, irritable Eye Exam: Normal inspection: bilateral Neck: Present: supple, full range of motion Respiratory: Present: no respiratory distress, no accessory muscle use Cardiovascular/Chest: Present: regular rate, rhythm, no murmur Gastrointestinal/Abdominal: Present: tenderness - diffuse, abnormal bowel sounds - hypoactive Back Exam: Present: normal inspection, normal range of motion Extremity Exam: Present: normal inspection, normal range of motion ED Progress - CT/Ultrasound CT/Ultrasound Narrative: CT head without contrast: IMPRESSION: 1. LIMITED EXAMINATION DUE TO MOTION ARTIFACT. 2. QUESTIONABLE CORTICAL INFARCTION INVOLVING THE INFERIOR RIGHT OCCIPITAL LOBE 3. NO DEFINABLE ACUTE HEMORRHAGE OR MASS EFFECT, BUT THE EXAMINATION IS SEVERELY LIMITED AND CANNOT BE TOTALLY EXCLUDED. A REPEAT STUDY IS REQUIRED, WHEN THE PATIENT IS MORE COOPERATIVE. Electronically signed by Gage Box M.D. - Transfer of Care Physician Sign Out: Portillo Saucedo Receiving Physician: Nicholas Ball Pending Results: Labs Expected Disposition: Admit Departure Clinical Impression: Delirium, Pneumonia, Leukocytosis, Gait instability, Abdominal pain - Departure Disposition: Still a patient Condition: Fair Referrals: Sergio Whitt DO [Primary Care Provider] - <Nicholas Ball - Last Filed: 07/29/18 11:17> Head Injury HPI - Immun/Allergies/Home Medications Immunization: IMMUNIZATION HX Immunizations Up to Date Yes History of Influenza Vaccine No Hx Pneumococcal Vaccination Yes Medical History (Last Reviewed 07/29/18 @ 07:15 by Portillo Saucedo DO) Conjunctivitis due to adenovirus, both eyes (Acute) Hypothyroidism (Chronic) Onset Date: Unknown Hyperglyceridemia (Chronic) Onset Date: Unknown Hyperlipidemia due to dietary fat intake (Chronic) Onset Date: Unknown Diabetes mellitus (Chronic) Onset Date: Unknown COPD (chronic obstructive pulmonary disease) (Chronic) Onset Date: Unknown Bipolar disorder (Chronic) Onset Date: Unknown Arthritis of knee (Chronic) Onset Date: Unknown Back pain Surgical History: Surgical History (Last Reviewed 07/29/18 @ 07:15 by Portillo Saucedo DO) History of total abdominal hysterectomy and bilateral salpingo-oophorectomy Onset Date: Unknown Age 28 Hx of cholecystectomy Onset Date: Unknown Age 35 Hx of tubal ligation Onset Date: Unknown Age 26 Family History: Family History (Last Reviewed 06/05/18 @ 15:43 by Concepción Coronel LPN) Mother , @ age 49; unknown to cause No problems noted. Social History: Preferred Language Fijian Smoking Status Current every day smoker Psych History Hx of Anxiety,Hx of Depression,Hx of Bipolar Disorder (Last Updated 06/17/18 @ 15:26 by Sergio Whitt DO) No Social History Section defined ED Progress - Results and Orders Patient's Lab Results:: I have reviewed the patient's lab results. - Vital Signs Patient's Vital Signs:: I have reviewed the patient's vital signs. Vital Signs: Vital Signs 07/29/18 07:05 07/29/18 07:31 07/29/18 10:28 Temperature 36.5 C 36.5 C 37.1 C Pulse Rate 115 H 115 H 120 H Respiratory Rate 19 19 12 Blood Pressure 169/98 H 169/98 H 199/90 H O2 Sat by Pulse Oximetry 97 97 95 07/29/18 10:55 Temperature Pulse Rate 122 H Respiratory Rate 12 Blood Pressure 199/96 H O2 Sat by Pulse Oximetry 90 L - EKG EKG read: Interp. by me EKG Comments: Sinus tachycardia. Rate 119. Non-specific, no STEMI noted. - X-Ray X-Ray #1 X-Ray: chest Interpretation: Interp. by me X-ray Comments: I reviewed official radiology report - CT/Ultrasound CT/Ultrasound Narrative: I reviewed official radiology report for CT ABd/Pelvis, initial Head CT and repeat head CT - Progress/Reassessment Progress Note-Subjective: 07/29/18 11:12 Patient was checked out to me at shift change pending work-up. Given medications for her abd pain and agitation. No clear ICH. Cannot r/o infarct but artifact favored. Patient difficult to examine. She is improved and resting after meds. Tells me that when she awoke at 0100 she awoke with Sx, caould not walk or stand, well out of any window for stroke treatment if this turns out to be a stroke. Her exam is limited but no clear acute neuro deficits, I would give her NIH - 0 at this time. Once again very difficult exam. Treated for pneumonia based on WBC and CT findings. No other clear acute intra-abdominal process noted. D/W Dr Whitt, obs. Patient agreeable. Please see Dr Saucedo's note for full H&P.
[2018-07-29] MEDS ORDERED: ONDANSETRON HCL/PF 2 MG/ML VIAL ONE (07:36)
[2018-07-29 07:52] LABS: Hematocrit 42.3 % (37.0-47.0); Hemoglobin 12.8 gm/dL (12.5-16.0); Mean Cell Volume 86.3 fl (78-100); Mean Corpuscular Hemoglobin 26.1 pg (27-31); Mean Corpuscular Hgb Conc 30.3 g/dl (32-36); Mean Platelet Volume 9.5 fl (8-12.5); Neutrophil # 16.9 K/mm3 (1.3-6.0); Neutrophil % 89.3 % (42-75.0); Platelet Count 443 K/mm3 (150-450); Red Cell Distribution Width 18.4 % (11.5-14.0)
[2018-07-29 08:02] LABS: ALT 33 U/L (19-67); AST 22 U/L (0-48); Albumin * 3.4 gm/dl (3.4-5.0); Alkaline Phosphatase * 111 U/L (50-170); Anion Gap 12.5 mmol/L (6.8-13.8); Bilirubin, Total 0.1 mg/dL (0.0-1.1); Blood Urea Nitrogen 10 mg/dL (3-23); Ca. Corrected For Albumin 9.8 mg/dL (8.4-10.2); Calcium * 9.6 mg/dL (7.9-10.9); Carbon Dioxide 25.2 mmol/L (24-32.6); Chloride 103 mmol/L (97-106); Glucose * 133 mg/dL (70-110); Potassium 4.7 mmol/L (3.4-4.6); Sodium 136 mmol/L (132-142); Total Protein 7.1 gm/dL (6.2-8.2)
[2018-07-29] MEDS ORDERED: ONDANSETRON HCL/PF 2 MG/ML VIAL IV ONE (08:04)
[2018-07-29] MEDS ORDERED: MORPHINE SULFATE 4 MG/ML SYRG IV ONE (08:04)
[2018-07-29] MEDS ORDERED: NORMAL SALINE 1,000 ML IV ONE (08:04)
[2018-07-29] MEDS ORDERED: HYDROmorphone HCL 1 MG/ML DISP.SYRIN IV ONE (08:14)
[2018-07-29] MEDS ORDERED: LORazepam 2 MG/ML DISP.SYRIN IV ONE (08:15)
[2018-07-29 08:18] LABS: Urine Bilirubin Negative (NEGATIVE); Urine Blood Negative /ul (NEGATIVE); Urine Ketone Negative (NEGATIVE); Urine Nitrite Negative (NEGATIVE); Urine Protein Negative (NEGATIVE); Urine Specific Gravity 1.025 SP.GR. (1.005-1.010); Urine Urobilinogen Normal (NORMAL)
[2018-07-29 08:32] LABS: Urine Appearance Clear (CLEAR); Urine Bacteria None Seen; Urine Color Yellow; Urine RBC None Seen /hpf (0-5); Urine WBC None Seen /hpf (0-5)
[2018-07-29 08:38] LABS: Cocaine Ur Negative (NEGATIVE); Urine Barbiturate Negative (NEGATIVE); Urine Benzodiazepines Negative (NEGATIVE); Urine Opiates Positive (NEGATIVE); Urine PCP Negative (NEGATIVE); Urine THC Negative (NEGATIVE)
[2018-07-29 08:44] LABS: Troponin I Less than 0.017 ng/mL (0.00-0.10)
[2018-07-29 08:47] LABS: TSH * 0.433 uIU/mL (0.358-3.74)
[2018-07-29] MEDS ORDERED: HYDROmorphone HCL 1 MG/ML DISP.SYRIN ONE (09:24)
[2018-07-29] MEDS ORDERED: LEVOFLOXACIN IN DEXTROSE 5 % 500 MG/100 ML BAG IV SCH (10:45)
[2018-07-29] MEDS: LEVOFLOXACIN 500 MG TABLET PO SCH (14:24)
[2018-07-29] MEDS ORDERED: amLODIPine BESYLATE 5 MG TABLET PO ONE (15:00)
[2018-07-29] MEDS ORDERED: LISINOPRIL 40 MG TABLET PO ONE (15:01)
[2018-07-29] MEDS ORDERED: amLODIPine BESYLATE 5 MG TABLET ONE (16:17)
[2018-07-29] MEDS ORDERED: LISINOPRIL 10 MG TABLET ONE (16:18)
[2018-07-29] MEDS ORDERED: ALBUTEROL SULFATE 2.5 MG/0.5 ML VIAL.NEB IH PRN (17:15)
[2018-07-29] MEDS ORDERED: ACETAMINOPHEN PO PRN (17:15)
[2018-07-29] MEDS ORDERED: HYDROCODONE PO PRN (17:15)
[2018-07-29] MEDS ORDERED: [UNRECOGNIZED DRUG - OTHER] PO PRN (17:15)
[2018-07-29] MEDS ORDERED: ACETAMINOPHEN 325 MG TABLET PO PRN (17:15)
[2018-07-29] MEDS: metFORMIN HCL 500 MG TABLET PO SCH (18:00)
[2018-07-29] MEDS: ALBUTEROL SULFATE 2.5 MG/0.5 ML VIAL.NEB IH SCH (18:34)
[2018-07-29] MEDS ORDERED: HYDROcodone/ACETAMINOPHEN 1 EACH TABLET PO PRN (18:52)
--- NOTE | 2018-07-29 19:08 | HP ---
Chief Complaint - Chief Complaint Date of Service: 07/29/18 Time of Service: 18:00 Chief Complaint: altered mental status History of Present Illness: Erin Irene is a 47 yo wh fe. who was brought to the ER in a psychotic state. She was disoriented, confused and speech was slurred and confabulated. There was a concern of a possible head injury but two CT scans were done and the first had too much artifact to be reliably read and the 2nd did not show any concern for intracranial bleeding. Drug screen was done and only the opiates that were expected were positive. The rest of her chemistries were essentially unremarkable. I spoke with Nora is daughter this evening and she believes that she may have overdosed on some of her medication in mid day today. Her daughter prepares her medicines for morning and evening but not the midday medicines. She has overdosed on those once before not too long ago and her behavior is similar. It is most likely the cause of her altered mental status. Medical History (Last Reviewed 07/29/18 @ 11:54 by Vangie Sandoval RN) Conjunctivitis due to adenovirus, both eyes (Acute) Hypothyroidism (Chronic) Onset Date: Unknown Hyperglyceridemia (Chronic) Onset Date: Unknown Hyperlipidemia due to dietary fat intake (Chronic) Onset Date: Unknown Diabetes mellitus (Chronic) Onset Date: Unknown COPD (chronic obstructive pulmonary disease) (Chronic) Onset Date: Unknown Bipolar disorder (Chronic) Onset Date: Unknown Arthritis of knee (Chronic) Onset Date: Unknown Back pain Surgical History: Surgical History (Last Reviewed 07/29/18 @ 11:54 by Vangie Sandoval RN) History of total abdominal hysterectomy and bilateral salpingo-oophorectomy Onset Date: Unknown Age 28 Hx of cholecystectomy Onset Date: Unknown Age 35 Hx of tubal ligation Onset Date: Unknown Age 26 Family History: Family History (Last Reviewed 06/05/18 @ 15:43 by Concepción Coronel LPN) Mother , @ age 49; unknown to cause No problems noted. Social History: Patient Lives/Resources Home Utilized Preferred Language Chinese Do you have any sabianist or unknown cultural preference? Smoking Status Current every day smoker Have you smoked in the past 12 Yes months Psych History Hx of Anxiety,Hx of Depression,Hx of Bipolar Disorder Alcohol Use none Drug Use none (Last Updated 06/17/18 @ 15:26 by Sergio Jose Eduardo, DO) No Social History Section defined Review Of Systems (GEN) - Review of Systems Generalized/Overall Review: Present: No Symptoms Reported EENTM: Present: No Symptoms Reported Respiratory: Present: Cough, Shortness of Breath, Wheezing, Other - Continues to smoke every day Cardiac: Present: No Symptoms Reported Abdominal: Present: No Symptoms Reported Genitourinary: Present: No Symptoms Reported Musculoskeletal: Present: No Symptoms Reported Neurological: Present: No Symptoms Reported Skin: Present: No Symptoms Reported Endocrine: Present: No Symptoms Reported Misc: All systems neg except as marked Immunizations: IMMUNIZATION HX Immunizations Up to Date Yes History of Influenza Vaccine More Information Required Hx Pneumococcal Vaccination More Information Required Allergies/Adverse Reactions: Allergies Allergy/AdvReac Type Severity Reaction Status Date / Time No Known Drug Allergies Allergy Verified 07/29/18 11:54 Home Medications: HOME MEDICATIONS Albuterol Sulfate [Proair Hfa] 1 - 2 puff IH Q4H PRN #1 inhaler 05/17/16 [Last Taken 06/05/18 13:00] Albuterol Sulfate [Albuterol Sulfate 0.63 MG/3ML] 0.25 mg IH Q6H PRN 03/12/18 [Last Taken 06/05/18 14:00] metformin 500 mg tablet 500 mg PO BID #120 tab 03/27/18 [Last Taken 06/02/18] amitriptyline 150 mg tablet 150 mg PO HS #30 tab 05/20/18 [Last Taken 06/04/18] levothyroxine 125 mcg tablet 125 mcg PO DAILY #30 tab 05/20/18 [Last Taken 06/02/18] Albuterol Sulfate [Albuterol Sulfate 2.5 MG/0.5ML] 2.5 mg INHALATION QIDRT vial.neb 06/09/18 [Last Taken Unknown] Cefuroxime Axetil [Ceftin] 500 mg PO BID #20 tab 06/09/18 [Last Taken Unknown] guaiFENesin [Guaifenesin ER] 600 mg PO BID #60 tab.er.12h 06/09/18 [Last Taken Unknown] predniSONE [Prednisone] 10 mg PO BID #30 tab.ds.pk 06/09/18 [Last Taken Unknown] pravastatin 40 mg tablet 40 mg PO DAILY #30 tab 06/10/18 [Last Taken Unknown] amlodipine 5 mg tablet 5 mg PO DAILY #30 tab 06/12/18 [Last Taken 06/13/18 13:21] citalopram 40 mg tablet 20 mg PO DAILY #15 tab 06/13/18 [Last Taken Unknown] blood sugar diagnostic strips See Dose Instructions .ROUTE .MEDSUPPLY #100 ea 06/17/18 [Last Taken Unknown] quetiapine 50 mg tablet 50 mg PO BID #60 tab 06/17/18 [Last Taken Unknown] famotidine 20 mg tablet 20 mg PO BID #60 tab 06/18/18 [Last Taken Unknown] gabapentin 800 mg tablet 800 mg PO QID #120 tab 07/22/18 [Last Taken Unknown] hydrocodone 7.5 mg-acetaminophen 325 mg tablet 1 tab PO .COMPLEX PRN #150 tab 07/22/18 [Last Taken Unknown] Ibuprofen [Motrin] 800 mg PO QID PRN 07/29/18 [Last Taken Unknown] Lisinopril 20 mg PO DAILY 07/29/18 [Last Taken Unknown] Exam - Exam Vital Signs: Vital Signs - Last Taken Temp 36.4 C 07/29/18 15:58 Pulse 113 H 07/29/18 18:34 Resp 24 H 07/29/18 18:34 BP 148/95 H 07/29/18 16:20 Pulse Ox 95 07/29/18 18:34 Constitutional: Present: Alert, Cooperative, Well developed, Well nourished, Acute distress, Morbidly obese. Absent: Oriented x3 - Oriented to location and familiar faces but not to time or date ENT Exam: Present: normal ENT inspection, hearing grossly normal, pharynx normal, TMs normal Eye Exam: bilateral eye: normal inspection, PERRL, EOMI Neck: Present: non-tender, full range of motion, supple, normal inspection, trachea midline Back Exam: Present: normal inspection, no CVA tenderness, no vertebral tenderness, vertebral tenderness - In the lumbar area which is chronic. Breasts: Present: Exam deferred Respiratory: Present: chest non-tender, decreased breath sounds, rhonchi, wheezing, expiration (prolonged) Cardiovascular/Chest: Present: normal peripheral pulses, regular rate, rhythm, no chest tenderness, no edema, no gallop, no JVD, no murmur, no rub Peripheral Pulses: carotid (R): 2+, carotid (L): 2+, radial (R): 2+, radial (L): 2+ Abdomen: Present: Normal bowel sounds, soft, nontender, nondistended, no rebound tenderness, no hepatospenomegaly, no masses, obese /Rectal: Present: Exam deferred Extremity: Present: normal range of motion Skin Exam: Present: normal color, warm/dry, no cyanosis Lymphatic: Present: no adenopathy Neurologic: Present: animal taxonomist II-XII nml as tested, no motor/sensory deficits, normal mood/affect Appearance: Present: appropriate appearance, appropriate insight, neat, impaired insight, impaired recent memory Eye contact: Present: cooperative, good eye contact, normal speech Thoughts: Present: normal thought pattern, no apparent hallucination Diagnostic Studies: Abnormal Lab Results 07/29/18 07/29/18 07/29/18 Range/Units 07:43 07:43 08:03 WBC 19.0 H (4.0-10.5) K/mm3 MCH 26.1 L (27-31) pg MCHC 30.3 L (32-36) g/dl RDW 18.4 H (11.5-14.0) % Immature Gran % (Auto) 1.20 H (0.001-0.429) % Immature Gran # (Auto) 0.22 H (0.000-0.0310) K/mm3 Neutrophils % 89.3 H (42-75.0) % Lymphocytes % 5.6 L (20-51) % Neutrophils # 16.9 H (1.3-6.0) K/mm3 Lymphocytes # 1.07 L (1.5-3.5) k/mm3 Potassium 4.7 H (3.4-4.6) mmol/L Random Glucose 133 H (70-110) mg/dL Lactic Acid, Venous (0.4-2.0) mmol/L Lipase (73-393) U/L Urine Opiates Screen Positive H (NEGATIVE) Acetaminophen (10.0-30.0) mcg/mL 07/29/18 07/29/18 07/29/18 Range/Units 08:15 08:15 08:15 WBC (4.0-10.5) K/mm3 MCH (27-31) pg MCHC (32-36) g/dl RDW (11.5-14.0) % Immature Gran % (Auto) (0.001-0.429) % Immature Gran # (Auto) (0.000-0.0310) K/mm3 Neutrophils % (42-75.0) % Lymphocytes % (20-51) % Neutrophils # (1.3-6.0) K/mm3 Lymphocytes # (1.5-3.5) k/mm3 Potassium (3.4-4.6) mmol/L Random Glucose (70-110) mg/dL Lactic Acid, Venous 2.1 H (0.4-2.0) mmol/L Lipase 40 L (73-393) U/L Urine Opiates Screen (NEGATIVE) Acetaminophen Less than 0.2 L (10.0-30.0) mcg/mL Laboratory Results WBC 19.0 K/mm3 (4.0-10.5) H 07/29/18 07:43 RBC 4.90 M/mm3 (4.2-5.4) 07/29/18 07:43 Hgb 12.8 gm/dL (12.5-16.0) 07/29/18 07:43 Hct 42.3 % (37.0-47.0) 07/29/18 07:43 MCV 86.3 fl (78-100) 07/29/18 07:43 MCH 26.1 pg (27-31) L 07/29/18 07:43 MCHC 30.3 g/dl (32-36) L 07/29/18 07:43 RDW 18.4 % (11.5-14.0) H 07/29/18 07:43 Plt Count 443 K/mm3 (150-450) 07/29/18 07:43 MPV 9.5 fl (8-12.5) 07/29/18 07:43 Immature Gran % (Auto) 1.20 % (0.001-0.429) H 07/29/18 07:43 Immature Gran # (Auto) 0.22 K/mm3 (0.000-0.0310) H 07/29/18 07:43 Neutrophils % 89.3 % (42-75.0) H 07/29/18 07:43 Lymphocytes % 5.6 % (20-51) L 07/29/18 07:43 Monocytes % 3.4 % (0.0-9) 07/29/18 07:43 Eosinophils % 0.1 % (0.0-3.0) 07/29/18 07:43 Basophils % 0.4 % (0.0-1.0) 07/29/18 07:43 Nucleated RBC % 0.0 k/mm3 (0-1) 07/29/18 07:43 Neutrophils # 16.9 K/mm3 (1.3-6.0) H 07/29/18 07:43 Lymphocytes # 1.07 k/mm3 (1.5-3.5) L 07/29/18 07:43 Monocytes # 0.7 k/mm3 (0.0-1.0) 07/29/18 07:43 Eosinophils # 0.0 k/mm3 (0.0-0.7) 07/29/18 07:43 Absolute Basophils 0.1 k/mm3 (0.0-0.1) 07/29/18 07:43 Sodium 136 mmol/L (132-142) 07/29/18 07:43 Plasma Sodium 137 mmol/L (130-142) 07/29/18 07:43 Potassium 4.7 mmol/L (3.4-4.6) H 07/29/18 07:43 Chloride 103 mmol/L (97-106) 07/29/18 07:43 Carbon Dioxide 25.2 mmol/L (24-32.6) 07/29/18 07:43 Anion Gap 12.5 mmol/L (6.8-13.8) 07/29/18 07:43 BUN 10 mg/dL (3-23) 07/29/18 07:43 Creatinine 0.83 mg/dL (0.4-1.4) 07/29/18 07:43 Est GFR (Non-Af Amer) 78 mL/min (60-130) 07/29/18 07:43 BUN/Creatinine Ratio 12.0 (9.0-21.6) 07/29/18 07:43 Random Glucose 133 mg/dL (70-110) H 07/29/18 07:43 Lactic Acid, Venous 1.0 mmol/L (0.4-2.0) 07/29/18 12:07 Calcium 9.6 mg/dL (7.9-10.9) 07/29/18 07:43 Calcium Adj for Albumin 9.8 mg/dL (8.4-10.2) 07/29/18 07:43 Total Bilirubin 0.1 mg/dL (0.0-1.1) 07/29/18 07:43 AST 22 U/L (0-48) 07/29/18 07:43 ALT 33 U/L (19-67) 07/29/18 07:43 Alkaline Phosphatase 111 U/L (50-170) 07/29/18 07:43 Ammonia 24.0 mcmol/L (11-35) 07/29/18 08:15 Troponin I Less than 0.017 ng/mL (0.00-0.10) 07/29/18 08:15 Total Protein 7.1 gm/dL (6.2-8.2) 07/29/18 07:43 Albumin 3.4 gm/dl (3.4-5.0) 07/29/18 07:43 Lipase 40 U/L (73-393) L 07/29/18 08:15 TSH 0.433 uIU/mL (0.358-3.74) 07/29/18 08:15 Urine Color Yellow 07/29/18 08:03 Urine Appearance Clear (CLEAR) 07/29/18 08:03 Urine pH 6.0 pH (5.0-7.0) 07/29/18 08:03 Ur Specific Delta 1.025 SP.GR. (1.005-1.010) 07/29/18 08:03 Urine Protein Negative mg/dL (NEGATIVE) 07/29/18 08:03 Urine Glucose (UA) Negative mg/dL (NEGATIVE) 07/29/18 08:03 Urine Ketones Negative mg/dL (NEGATIVE) 07/29/18 08:03 Urine Blood Negative /ul (NEGATIVE) 07/29/18 08:03 Urine Nitrate Negative (NEGATIVE) 07/29/18 08:03 Urine Bilirubin Negative mg/dl (NEGATIVE) 07/29/18 08:03 Urine Urobilinogen Normal EU/dl (NORMAL) 07/29/18 08:03 Ur Leukocyte Esterase Negative /ul (NEGATIVE) 07/29/18 08:03 Urine RBC None seen /hpf (0-5) 07/29/18 08:03 Urine WBC None seen /hpf (0-5) 07/29/18 08:03 Ur Epithelial Cells 0-5 /hpf (0-5) 07/29/18 08:03 Urine Bacteria None seen (NONE) 07/29/18 08:03 Urine Culture Comments No culture indicated 07/29/18 08:03 Salicylates 5.0 mg/dL (2.8-20.0) 07/29/18 08:15 Urine Opiates Screen Positive (NEGATIVE) H 07/29/18 08:03 Acetaminophen Less than 0.2 mcg/mL (10.0-30.0) L 07/29/18 08:15 Barbiturate Screen Negative (NEGATIVE) 07/29/18 08:03 Ur Phencyclidine Scrn Negative (NEGATIVE) 07/29/18 08:03 Urine Amphetamine Negative (NEGATIVE) 07/29/18 08:03 U Benzodiazepines Scrn Negative (NEGATIVE) 07/29/18 08:03 Urine Cocaine Screen Negative (NEGATIVE) 07/29/18 08:03 Urine Marijuana (THC) Negative (NEGATIVE) 07/29/18 08:03 Ethyl Alcohol Less than 3.0 mg/dL (0.0-10.0) 07/29/18 08:15 Assessment/Plan - Narrative Narrative: 1. She is admitted to observation and will be monitored through the night. I fully expect improvement in her mental status as it has already improved significantly. She is much better this evening that she was in the emergency room. She has no recollection of events earlier today or the experience in the emergency room. Her daughter is going to check her medicines and count them and see if she has overdosed on some of the medicines which I expect. 2. Reconciled her medications and restarted most of them. 3. Start a nicotine patch 21 g per hour. 4. Consistent carb diet 5. We'll get her up tomorrow and see if she can ambulate. - Assessment/Plan (1) Delirium Problem: Acute (2) Altered mental status Problem: Acute Qualifiers: Altered mental status type: delirium Qualified Code(s): R41.0 - Disorientation, unspecified (3) Abdominal pain Problem: Acute Qualifiers: Abdominal location: generalized Qualified Code(s): R10.84 - Generalized abdominal pain (4) Chronic pain Problem: Chronic Qualifiers: Chronic pain type: chronic pain syndrome Qualified Code(s): G89.4 - Chronic pain syndrome (5) Back pain Problem: Chronic Qualifiers: Back pain location: low back pain Chronicity: chronic Back pain laterality: bilateral Sciatica laterality: sciatica of right side (6) Right lumbar radiculitis Problem: Chronic (7) Morbid obesity Problem: Chronic
[2018-07-29] MEDS ORDERED: NICOTINE 21 MG PATC TD SCH (20:00)
[2018-07-29] MEDS ORDERED: SIMVASTATIN 20 MG TABLET PO SCH (21:00)
[2018-07-29] MEDS ORDERED: AMITRIPTYLINE HCL 50 MG TABLET PO SCH (21:00)
[2018-07-30] MEDS: GABAPENTIN 400 MG CAPSULE PO SCH ×4 (00:51→16:43)
[2018-07-30] MEDS: CEFUROXIME AXETIL 500 MG TABLET PO SCH ×2 (00:52→08:14)
[2018-07-30] MEDS: IBUPROFEN 800 MG TABLET PO SCH ×4 (00:53→16:43)
[2018-07-30] MEDS: predniSONE 10 MG TABLET PO SCH ×2 (00:54→08:14)
[2018-07-30] MEDS: FAMOTIDINE 20 MG TABLET PO SCH ×2 (00:54→08:11)
[2018-07-30] MEDS: QUEtiapine FUMARATE 25 MG TABLET PO SCH ×2 (00:55→08:12)
[2018-07-30] MEDS: ALBUTEROL SULFATE 2.5 MG/0.5 ML VIAL.NEB IH SCH ×4 (05:44→14:33)
[2018-07-30] MEDS ORDERED: LEVOTHYROXINE SODIUM 125 MCG TABLET PO SCH (07:00)
[2018-07-30] MEDS: metFORMIN HCL 500 MG TABLET PO SCH ×2 (08:15→16:43)
[2018-07-30] MEDS: LEVOFLOXACIN 500 MG TABLET PO SCH (08:15)
[2018-07-30] MEDS ORDERED: CITALOPRAM HYDROBROMIDE 20 MG TABLET PO SCH (09:00)
[2018-07-30] MEDS ORDERED: amLODIPine BESYLATE 5 MG TABLET PO SCH (09:00)
[2018-07-30] MEDS ORDERED: LISINOPRIL 20 MG TABLET PO SCH (09:00)
--- NOTE | 2018-07-30 13:29 | DS ---
(1) Delirium Problem: Resolved (2) Altered mental status Problem: Resolved Qualifiers: Altered mental status type: delirium Qualified Code(s): R41.0 - Disorientation, unspecified (3) Abdominal pain Problem: Resolved Qualifiers: Abdominal location: generalized Qualified Code(s): R10.84 - Generalized abdominal pain (4) Chronic pain Problem: Chronic Qualifiers: Chronic pain type: chronic pain syndrome Qualified Code(s): G89.4 - Chronic pain syndrome (5) Back pain Problem: Chronic Qualifiers: Back pain location: low back pain Chronicity: chronic Back pain laterality: bilateral Sciatica laterality: sciatica of right side (6) Right lumbar radiculitis Problem: Chronic (7) Morbid obesity Problem: Chronic Description of Stay: Nora apparently overdosed on one or more meds that led to her psychotic break. Initally thought to have had a head injury due to a fall a thorough workup was done in the ER and the CT is neg. She fell onto her abdomen and anterior chest. This morning there is no pain in the abdomen but the breast tissue is bruised and tender. She has been up and ambulated this morning (unable to do so on admission). VSS have been stable. She is back to her baseline mentation which is very anxious. She will discharged to her home. Her daughter is taking steps to assure this won't be repeated. Procedures Performed: none Results and Findings: Pending Mircobiology Results 07/29/18 08:15 Blood Blood Culture - Preliminary NO GROWTH 24 HOURS Lab Pending Results 07/29/18 07:43: WBC 19.0 H, RBC 4.90, Hgb 12.8, Hct 42.3, MCV 86.3, MCH 26.1 L, MCHC 30.3 L, RDW 18.4 H, Plt Count 443, MPV 9.5, Immature Gran % (Auto) 1.20 H, Immature Gran # (Auto) 0.22 H, Neutrophils % 89.3 H, Lymphocytes % 5.6 L, Monocytes % 3.4, Eosinophils % 0.1, Basophils % 0.4, Nucleated RBC % 0.0, Neutrophils # 16.9 H, Lymphocytes # 1.07 L, Monocytes # 0.7, Eosinophils # 0.0, Absolute Basophils 0.1 07/29/18 07:43: Sodium 136, Plasma Sodium 137, Potassium 4.7 H, Chloride 103, Carbon Dioxide 25.2, Anion Gap 12.5, BUN 10, Creatinine 0.83, Est GFR (Non-Af Amer) 78, BUN/Creatinine Ratio 12.0, Random Glucose 133 H, Calcium 9.6, Calcium Adj for Albumin 9.8, Total Bilirubin 0.1, AST 22, ALT 33, Alkaline Phosphatase 111, Total Protein 7.1, Albumin 3.4, Ethyl Alcohol Less than 3.0 07/29/18 08:03: Urine Color Yellow, Urine Appearance Clear, Urine pH 6.0, Ur Specific [place] 1.025, Urine Protein Negative, Urine Glucose (UA) Negative, Urine Ketones Negative, Urine Blood Negative, Urine Nitrate Negative, Urine Bilirubin Negative, Urine Urobilinogen Normal, Ur Leukocyte Esterase Negative, Urine RBC None seen, Urine WBC None seen, Ur Epithelial Cells 0-5, Urine Bacteria None seen, Urine Culture Comments No culture indicated 07/29/18 08:03: Urine Opiates Screen Positive H, Barbiturate Screen Negative, Ur Phencyclidine Scrn Negative, Urine Amphetamine Negative, U Benzodiazepines Scrn Negative, Urine Cocaine Screen Negative, Urine Marijuana (THC) Negative 07/29/18 08:15: Lactic Acid, Venous 2.1 H 07/29/18 08:15: Ammonia 24.0 07/29/18 08:15: Troponin I Less than 0.017, TSH 0.433, Salicylates 5.0, Acetaminophen Less than 0.2 L, Ethyl Alcohol Less than 3.0 07/29/18 08:15: Lipase 40 L 07/29/18 12:07: Lactic Acid, Venous 1.0 Discharge Location: Home Disposition: Home self-care Condition: Fair Face to Face Encounter completed per CMS Guidelines: No Discharge Activity: Activity as tolerated Discharge Diet: Consistent carbs Referrals: Sergio Whitt DO [Primary Care Provider] - Additional Patient Instructions (free text): See Dr. whitt in the office in 3 weeks. Complete Home Medications List: Complete Home Medication List: Albuterol Sulfate [Proair Hfa] 1 - 2 puff IH Q4H PRN #1 inhaler 05/17/16 Albuterol Sulfate [Albuterol Sulfate 0.63 MG/3ML] 0.25 mg IH Q6H PRN 03/12/18 metformin 500 mg tablet 500 mg PO BID #120 tab 03/27/18 amitriptyline 150 mg tablet 150 mg PO HS #30 tab 05/20/18 levothyroxine 125 mcg tablet 125 mcg PO DAILY #30 tab 05/20/18 Albuterol Sulfate [Albuterol Sulfate 2.5 MG/0.5ML] 2.5 mg INHALATION QIDRT vial.neb 06/09/18 Cefuroxime Axetil [Ceftin] 500 mg PO BID #20 tab 06/09/18 guaiFENesin [Guaifenesin ER] 600 mg PO BID #60 tab.er.12h 06/09/18 predniSONE [Prednisone] 10 mg PO BID #30 tab.ds.pk 06/09/18 pravastatin 40 mg tablet 40 mg PO DAILY #30 tab 06/10/18 amlodipine 5 mg tablet 5 mg PO DAILY #30 tab 06/12/18 citalopram 40 mg tablet 20 mg PO DAILY #15 tab 06/13/18 blood sugar diagnostic strips See Dose Instructions .ROUTE .MEDSUPPLY #100 ea 06/17/18 quetiapine 50 mg tablet 50 mg PO BID #60 tab 06/17/18 famotidine 20 mg tablet 20 mg PO BID #60 tab 06/18/18 gabapentin 800 mg tablet 800 mg PO QID #120 tab 07/22/18 hydrocodone 7.5 mg-acetaminophen 325 mg tablet 1 tab PO .COMPLEX PRN #150 tab 07/22/18 Ibuprofen [Motrin] 800 mg PO QID PRN 07/29/18 Lisinopril 20 mg PO DAILY 07/29/18 Acetaminophen [Tylenol] 650 mg PO Q4H PRN tablet 07/30/18 Nicotine [Nicoderm] 21 mg TD Q24H #30 patch.td24 07/30/18
[2018-07-30 17:56] VITALS: BP 141/80
== END 2018-07-30 17:25 | disposition home or self-care (01) ==
LOC: ER 07:04 → MS 07:04
PROVIDERS: ADMIT Family Medicine; ATTEND Family Medicine
DX: W19.XXXA Unspecified fall, initial encounter
CPT/HCPCS: 36415; 70450; 71010; 71045; 74177; 80053; 80307; 80320; 80329; 81001; 82140; 83605; 83690; 84443; 84484; 85025; 87040; 93005; 94640; 94664; 94762; 96361; 96374; 96375; 99284; G0378; G0479; G0480; G0481; J2405

== ENCOUNTER 2018-08-24 11:41 | Observation (INO) ==
[2018-08-24] MEDS ORDERED: NORMAL SALINE 1,000 ML IV ONE (12:03)
[2018-08-24 12:21] LABS: Hematocrit 38.1 % (37.0-47.0); Hemoglobin 11.8 gm/dL (12.5-16.0); Mean Cell Volume 84.3 fl (78-100); Mean Corpuscular Hemoglobin 26.1 pg (27-31); Mean Platelet Volume 9.7 fl (8-12.5); Platelet Count 418 K/mm3 (150-450); Red Blood Count 4.52 M/mm3 (4.2-5.4); Red Cell Distribution Width 17.5 % (11.5-14.0)
[2018-08-24 12:27] LABS: Total Cells Counted 100
[2018-08-24 12:34] LABS: ALT 53 U/L (19-67); AST 195 U/L (0-48); Alkaline Phosphatase * 112 U/L (50-170); Anion Gap 15.5 mmol/L (6.8-13.8); BUN/Creatinine Ratio 15.9 (9.0-21.6); Bilirubin, Total 0.7 mg/dL (0.0-1.1); Blood Urea Nitrogen 59 mg/dL (3-23); Ca. Corrected For Albumin 9.1 mg/dL (8.4-10.2); Calcium * 8.6 mg/dL (7.9-10.9); Carbon Dioxide 25.1 mmol/L (24-32.6); Chloride 93 mmol/L (97-106); Glucose * 107 mg/dL (70-110); Potassium 5.6 mmol/L (3.4-4.6); Sodium 128 mmol/L (132-142); Total Protein 6.5 gm/dL (6.2-8.2)
[2018-08-24 12:53] LABS: Band 17 % (0-2.0); Eosinophil 1 % (0-3); Lymphocyte 6 % (20-51); Monocyte 8 % (0-9); Neutrophil 68 % (42-75); Neutrophil # 11.6 K/mm3 (1.3-6.0)
[2018-08-24 12:54] LABS: Platelet Estimate Normal (NORMAL); RBC Morphology Normal (NORMAL)
[2018-08-24 14:10] LABS: Cocaine Ur Negative (NEGATIVE); Urine Barbiturate Negative (NEGATIVE); Urine Benzodiazepines Negative (NEGATIVE); Urine Opiates Negative (NEGATIVE); Urine PCP Negative (NEGATIVE); Urine THC Negative (NEGATIVE)
[2018-08-24 14:10] LABS: Urine Color Dark Yellow
[2018-08-24 14:11] LABS: Urine Bacteria 1+; Urine Bilirubin Negative (NEGATIVE); Urine Blood 25 /ul (NEGATIVE); Urine Ketone Negative (NEGATIVE); Urine Nitrite Negative (NEGATIVE); Urine Protein Negative (NEGATIVE); Urine RBC 0-5 /hpf (0-5); Urine Specific Gravity 1.025 SP.GR. (1.005-1.010); Urine Urobilinogen Normal (NORMAL); Urine WBC 0-5 /hpf (0-5); Urine pH 5.5 pH (5.0-7.0)
[2018-08-24 14:14] LABS: Urine Appearance Clear (CLEAR)
--- NOTE | 2018-08-24 14:40 | ERNOTE ---
Medical Problem HPI - Narrative Date of Service: 08/24/18 - General Chief Complaint: General Assessment Time Seen by Provider: 08/24/18 11:51 Source: patient, family Exam Limitations: no limitations - Immun/Allergies/Home Medications Immunizations: IMMUNIZATION HX Immunizations Up to Date Yes History of Influenza Vaccine Yes Hx Pneumococcal Vaccination Yes Allergies/Adverse Reactions: Allergies No Known Drug Allergies Allergy (Verified 08/06/18 10:10) Home Medications: HOME MEDICATIONS Albuterol Sulfate [Proair Hfa] 1 - 2 puff IH Q4H PRN #1 inhaler 05/17/16 [Last Taken 06/05/18 13:00] Albuterol Sulfate [Albuterol Sulfate 0.63 MG/3ML] 0.25 mg IH Q6H PRN 03/12/18 [Last Taken 06/05/18 14:00] amitriptyline 150 mg tablet 150 mg PO HS #30 tab 05/20/18 [Last Taken 06/04/18] levothyroxine 125 mcg tablet 125 mcg PO DAILY #30 tab 05/20/18 [Last Taken 06/02/18] Albuterol Sulfate [Albuterol Sulfate 2.5 MG/0.5ML] 2.5 mg INHALATION QIDRT vial.neb 06/09/18 [Last Taken Unknown] Cefuroxime Axetil [Ceftin] 500 mg PO BID #20 tab 06/09/18 [Last Taken Unknown] guaiFENesin [Guaifenesin ER] 600 mg PO BID #60 tab.er.12h 06/09/18 [Last Taken Unknown] predniSONE [Prednisone] 10 mg PO BID #30 tab.ds.pk 06/09/18 [Last Taken Unknown] pravastatin 40 mg tablet 40 mg PO DAILY #30 tab 06/10/18 [Last Taken Unknown] amlodipine 5 mg tablet 5 mg PO DAILY #30 tab 06/12/18 [Last Taken 06/13/18 13 :21] blood sugar diagnostic strips See Dose Instructions .ROUTE .MEDSUPPLY #100 ea 06/17/18 [Last Taken Unknown] quetiapine 50 mg tablet 50 mg PO BID #60 tab 06/17/18 [Last Taken Unknown] famotidine 20 mg tablet 20 mg PO BID #60 tab 06/18/18 [Last Taken Unknown] gabapentin 800 mg tablet 800 mg PO QID #120 tab 07/22/18 [Last Taken Unknown] hydrocodone 7.5 mg-acetaminophen 325 mg tablet 1 tab PO .COMPLEX PRN #150 tab 07/22/18 [Last Taken Unknown] Ibuprofen [Motrin] 800 mg PO QID PRN 07/29/18 [Last Taken Unknown] Lisinopril 20 mg PO DAILY 07/29/18 [Last Taken Unknown] Acetaminophen [Tylenol] 650 mg PO Q4H PRN tab 07/30/18 [Last Taken Unknown] Nicotine [Nicoderm] 21 mg TD Q24H #30 patch.td24 07/30/18 [Last Taken Unknown] Priscilla Potty (Commode) 0 .ROUTE .MEDSUPPLY #1 ea 07/31/18 [Last Taken Unknown] citalopram 40 mg tablet 40 mg PO DAILY #30 tab 08/06/18 [Last Taken Unknown] knee brace See Rx Instructions .ROUTE .MEDSUPPLY #1 ea 08/06/18 [Last Taken Unknown] tramadol 50 mg tablet 100 mg PO QID #240 tab 08/06/18 [Last Taken Unknown] - History of Present History Narrative: patient presents to ed with c/o of twitching for las several dayshas not been eating or drinking well while dealing with ongoing right sciatica Timing: constant, getting worse Severity: moderate Modifying Factors - (Improves): Present: other - nothing Modifying Factors - (Worsens): Present: other - nothing Review of Systems - Review of Systems Constitutional: Present: See HPI, weakness, fatigue, malaise EYE: Present: no symptoms reported ENT: Present: no symptoms reported Respiratory: Present: no symptoms reported Cardiology: Present: no symptoms reported Gastrointestinal/Abdominal: Present: no symptoms reported Genitourinary: Present: no symptoms reported Musculoskeletal: Present: muscle pain, muscle stiffness, joint pain Skin: Present: no symptoms reported Neurological: Present: See HPI, dizziness/light-headedness, weakness Endocrine: Present: no symptoms reported Hematologic/Lymphatic: Present: no symptoms reported Psych: Present: no symptoms reported All Other Systems: All systems neg except as marked Medical History (Last Reviewed 08/24/18 @ 11:59 by Linda Haley RN) Conjunctivitis due to adenovirus, both eyes (Acute) Hypothyroidism (Chronic) Onset Date: Unknown Hyperglyceridemia (Chronic) Onset Date: Unknown Hyperlipidemia due to dietary fat intake (Chronic) Onset Date: Unknown Diabetes mellitus (Chronic) Onset Date: Unknown COPD (chronic obstructive pulmonary disease) (Chronic) Onset Date: Unknown Bipolar disorder (Chronic) Onset Date: Unknown Arthritis of knee (Chronic) Onset Date: Unknown Accidental overdose Back pain Surgical History: Surgical History (Last Reviewed 08/24/18 @ 11:59 by Linda Haley RN) History of total abdominal hysterectomy and bilateral salpingo-oophorectomy Onset Date: Unknown Age 28 Hx of cholecystectomy Onset Date: Unknown Age 35 Hx of tubal ligation Onset Date: Unknown Age 26 Family History: Family History (Last Reviewed 08/06/18 @ 10:11 by Concepción Coronel LPN) Mother , @ age 49; unknown to cause No problems noted. Social History: Preferred Language Ukrainian Do you have any mandaeism or No cultural preference? Smoking Status Current every day smoker Psych History Hx of Anxiety,Hx of Depression,Hx of Bipolar Disorder Alcohol Use sober Drug Use none (Last Updated 08/06/18 @ 13:10 by Sergio Whitt DO) No Social History Section defined Physical Exam - Physical Exam General Appearance: Present: mild distress, anxious Head Exam: Present: normal inspection, no evidence of injury Eye Exam: Normal inspection: bilateral, PERRL: bilateral, EOMI: bilateral Ears, Nose, Throat: Present: normal ENT inspection, normal pharynx Neck: Present: normal inspection, nontender Respiratory: Present: no respiratory distress, normal breath sounds, no accessory muscle use, chest nontender, lungs clear Cardiovascular/Chest: Present: regular rate, rhythm, no murmur, normal peripheral pulses Gastrointestinal/Abdominal: Present: normal bowel sounds, nontender, nondistended, soft, no organomegaly Back Exam: Present: normal inspection, normal range of motion, no CVA tenderness Extremity Exam: Present: normal except - - pain over right sciatic nerve Neurological Exam: Present: alert, oriented, normal mood/affect, no motor/sensory deficits Skin Exam: Present: normal color, warm/dry Lymphatic Exam: Present: no adenopathy Progress - Date and Time Seen: Date and Time: 08/24/18 14:[address] santana, to admit to observation - Results and Orders Patient's Lab Results:: I have reviewed the patient's lab results. - Vital Signs Patient's Vital Signs:: I have reviewed the patient's vital signs. Vital Signs: Vital Signs 08/24/18 11:41 Temperature 36.4 C Pulse Rate 101 H Respiratory Rate 15 Blood Pressure 189/160 H O2 Sat by Pulse Oximetry 94 - EKG EKG: NSR - Progress/Reassessment Chief Complaint: General Assessment Progress:: Improved - Transfer of Care Expected Disposition: Admit Plan - Plan Plan: to admit to observation Departure Clinical Impression: Dehydration, Renal insufficiency - Departure Disposition: Still a patient Condition: Stable Referrals: Sergio Whitt DO [Primary Care Provider] -
[2018-08-24] MEDS: NORMAL SALINE 1,000 ML IV PRN (15:11)
[2018-08-24] MEDS ORDERED: ACETAMINOPHEN 325 MG TABLET PO PRN (17:40)
[2018-08-24] MEDS ORDERED: IBUPROFEN 800 MG TABLET PO PRN (17:40)
[2018-08-24] MEDS ORDERED: ALBUTEROL SULFATE 2.5 MG/0.5 ML VIAL.NEB IH PRN (17:40)
--- NOTE | 2018-08-24 18:09 | HP ---
Chief Complaint - Chief Complaint Date of Service: 08/24/18 Time of Service: 17:49 Chief Complaint: twitching History of Present Illness: 48 year old female presents with "twitching" for the last 2 days. She states she also feels weak (genralized). She denies fever/chills, motor/sensory changes. Only other symptom is sciatic pain down her R side. Main issue with labs is acute renal injury (creatinine 3.71). She does state that she has not been eating or drinking well. She has no other concerns. Other Labs show her to have an elevated WBC with no shift, a low sodium (128) and an elevated potassium (5.6). First question she asked me was can I have [place] for the pain. She has a hx of Diabetes (not currently on any meds for this?), COPD, OA, chronic pain, HLD, bipolar disorder. Chronic medications on file restarted. She will be started on a consistent carb diet. No dvt ppx as she will likely leave in the morning. Medical History (Last Reviewed 08/24/18 @ 15:19 by Vangie Sandoval RN) Conjunctivitis due to adenovirus, both eyes (Acute) Hypothyroidism (Chronic) Onset Date: Unknown Hyperglyceridemia (Chronic) Onset Date: Unknown Hyperlipidemia due to dietary fat intake (Chronic) Onset Date: Unknown Diabetes mellitus (Chronic) Onset Date: Unknown COPD (chronic obstructive pulmonary disease) (Chronic) Onset Date: Unknown Bipolar disorder (Chronic) Onset Date: Unknown Arthritis of knee (Chronic) Onset Date: Unknown Accidental overdose Back pain Surgical History: Surgical History (Last Reviewed 08/24/18 @ 15:19 by Vangie Sandoval RN) History of total abdominal hysterectomy and bilateral salpingo-oophorectomy Onset Date: Unknown Age 28 Hx of cholecystectomy Onset Date: Unknown Age 35 Hx of tubal ligation Onset Date: Unknown Age 26 Family History: Family History (Last Reviewed 08/06/18 @ 10:11 by Concepción Coronel LPN) Mother , @ age 49; unknown to cause No problems noted. Social History: Patient Lives/Resources Home Utilized Preferred Language Iraqi Do you have any evangelical or No cultural preference? Smoking Status Current every day smoker Have you smoked in the past 12 Yes months Psych History Hx of Anxiety,Hx of Depression,Hx of Bipolar Disorder Alcohol Use sober Drug Use none (Last Updated 08/06/18 @ 13:10 by Sergio Whitt DO) No Social History Section defined Review Of Systems (GEN) - Review of Systems Generalized/Overall Review: Present: Weakness - generalized. Absent: Chills, Fever, Fatigue EENTM: Present: No Symptoms Reported Respiratory: Present: No Symptoms Reported Cardiac: Present: No Symptoms Reported Abdominal: Present: No Symptoms Reported Genitourinary: Present: No Symptoms Reported Musculoskeletal: Present: Back Pain, Other - neuropathic pain down RLE Neurological: Absent: Numbness, Tingling, Weakness Skin: Present: No Symptoms Reported Endocrine: Present: No Symptoms Reported Immunizations: IMMUNIZATION HX Immunizations Up to Date Yes History of Influenza Vaccine Yes Hx Pneumococcal Vaccination Yes Allergies/Adverse Reactions: Allergies Allergy/AdvReac Type Severity Reaction Status Date / Time No Known Drug Allergies Allergy Verified 08/24/18 15:19 Home Medications: HOME MEDICATIONS Albuterol Sulfate [Proair Hfa] 1 - 2 puff IH Q4H PRN #1 inhaler 05/17/16 [Last Taken 06/05/18 13:00] Albuterol Sulfate [Albuterol Sulfate 0.63 MG/3ML] 0.25 mg IH Q6H PRN 03/12/18 [Last Taken 06/05/18 14:00] amitriptyline 150 mg tablet 150 mg PO HS #30 tab 05/20/18 [Last Taken 06/04/18] levothyroxine 125 mcg tablet 125 mcg PO DAILY #30 tab 05/20/18 [Last Taken 06/02/18] Albuterol Sulfate [Albuterol Sulfate 2.5 MG/0.5ML] 2.5 mg INHALATION QIDRT vial.neb 06/09/18 [Last Taken Unknown] Cefuroxime Axetil [Ceftin] 500 mg PO BID #20 tab 06/09/18 [Last Taken Unknown] guaiFENesin [Guaifenesin ER] 600 mg PO BID #60 tab.er.12h 06/09/18 [Last Taken Unknown] predniSONE [Prednisone] 10 mg PO BID #30 tab.ds.pk 06/09/18 [Last Taken Unknown] pravastatin 40 mg tablet 40 mg PO DAILY #30 tab 06/10/18 [Last Taken Unknown] amlodipine 5 mg tablet 5 mg PO DAILY #30 tab 06/12/18 [Last Taken 06/13/18 13:21] blood sugar diagnostic strips See Dose Instructions .ROUTE .MEDSUPPLY #100 ea 06/17/18 [Last Taken Unknown] quetiapine 50 mg tablet 50 mg PO BID #60 tab 06/17/18 [Last Taken Unknown] famotidine 20 mg tablet 20 mg PO BID #60 tab 06/18/18 [Last Taken Unknown] gabapentin 800 mg tablet 800 mg PO QID #120 tab 07/22/18 [Last Taken Unknown] hydrocodone 7.5 mg-acetaminophen 325 mg tablet 1 tab PO .COMPLEX PRN #150 tab 07/22/18 [Last Taken Unknown] Ibuprofen [Motrin] 800 mg PO QID PRN 07/29/18 [Last Taken Unknown] Lisinopril 20 mg PO DAILY 07/29/18 [Last Taken Unknown] Acetaminophen [Tylenol] 650 mg PO Q4H PRN tab 07/30/18 [Last Taken Unknown] Nicotine [Nicoderm] 21 mg TD Q24H #30 patch.td24 07/30/18 [Last Taken Unknown] Priscilla Potty (Commode) 0 .ROUTE .MEDSUPPLY #1 ea 07/31/18 [Last Taken Unknown] citalopram 40 mg tablet 40 mg PO DAILY #30 tab 08/06/18 [Last Taken Unknown] knee brace See Rx Instructions .ROUTE .MEDSUPPLY #1 ea 08/06/18 [Last Taken Unknown] tramadol 50 mg tablet 100 mg PO QID #240 tab 08/06/18 [Last Taken Unknown] Exam - Exam Vital Signs: Vital Signs - Last Taken Temp 36.8 C 08/24/18 15:20 Pulse 88 08/24/18 15:20 Resp 16 08/24/18 15:20 BP 98/58 08/24/18 15:32 Pulse Ox 93 08/24/18 15:20 Constitutional: Present: Alert, Oriented x3, No distress, Morbidly obese Eye Exam: bilateral eye: normal inspection, PERRL, EOMI Back Exam: Present: no CVA tenderness, no vertebral tenderness Respiratory: Present: lungs clear, decreased breath sounds - likely due to body habitus Cardiovascular/Chest: Present: normal peripheral pulses, regular rate, rhythm Abdomen: Present: Normal bowel sounds, soft /Rectal: Present: Exam deferred Extremity: Present: leg pain - right leg with palpation of R buttock Neurologic: Present: no motor/sensory deficits, alert, oriented x 3 Appearance: Present: disheveled, impaired insight Eye contact: Present: cooperative, normal speech Thoughts: Present: normal thought pattern, normal mood /affect Diagnostic Studies: Abnormal Lab Results 08/24/18 08/24/18 08/24/18 Range/Units 12:15 12:15 13:54 WBC 17.0 H (4.0-10.5) K/mm3 Hgb 11.8 L (12.5-16.0) gm/dL MCH 26.1 L (27-31) pg MCHC 31.0 L (32-36) g/dl RDW 17.5 H (11.5-14.0) % Band Neuts % (Manual) 17 H (0-2.0) % Lymphocytes % (Manual) 6 L (20-51) % Neutrophils # (Manual) 11.6 H (1.3-6.0) K/mm3 Lymphocytes # (Manual) 1.0 L (1.5-3.5) k/mm3 Monocytes # (Manual) 1.4 H (0.0-1.0) k/mm3 Sodium 128 L (132-142) mmol/L Plasma Sodium 128 L (130-142) mmol/L Potassium 5.6 H (3.4-4.6) mmol/L Chloride 93 L (97-106) mmol/L Anion Gap 15.5 H (6.8-13.8) mmol/L BUN 59 H D (3-23) mg/dL Creatinine 3.71 H D (0.4-1.4) mg/dL Est GFR (Non-Af Amer) 14 L D (60-130) mL/min AST 195 H (0-48) U/L Albumin 3.0 L (3.4-5.0) gm/dl Urine Blood 25 H (NEGATIVE) /ul Ur Epithelial Cells 10-25 H (0-5) /hpf Urine Bacteria 1+ H (NONE) Laboratory Results WBC 17.0 K/mm3 (4.0-10.5) H 08/24/18 12:15 RBC 4.52 M/mm3 (4.2-5.4) 08/24/18 12:15 Hgb 11.8 gm/dL (12.5-16.0) L 08/24/18 12:15 Hct 38.1 % (37.0-47.0) 08/24/18 12:15 MCV 84.3 fl (78-100) 08/24/18 12:15 MCH 26.1 pg (27-31) L 08/24/18 12:15 MCHC 31.0 g/dl (32-36) L 08/24/18 12:15 RDW 17.5 % (11.5-14.0) H 08/24/18 12:15 Plt Count 418 K/mm3 (150-450) 08/24/18 12:15 MPV 9.7 fl (8-12.5) 08/24/18 12:15 Neutrophils % (Manual) 68 % (42-75) 08/24/18 12:15 Band Neuts % (Manual) 17 % (0-2.0) H 08/24/18 12:15 Lymphocytes % (Manual) 6 % (20-51) L 08/24/18 12:15 Monocytes % (Manual) 8 % (0-9) 08/24/18 12:15 Eosinophils % (Manual) 1 % (0-3) 08/24/18 12:15 Neutrophils # (Manual) 11.6 K/mm3 (1.3-6.0) H 08/24/18 12:15 Lymphocytes # (Manual) 1.0 k/mm3 (1.5-3.5) L 08/24/18 12:15 Monocytes # (Manual) 1.4 k/mm3 (0.0-1.0) H 08/24/18 12:15 Eosinophils # (Manual) 0.2 k/mm3 (0.0-0.7) 08/24/18 12:15 Platelet Estimate Normal (NORMAL) 08/24/18 12:15 RBC Morphology Normal (NORMAL) 08/24/18 12:15 Sodium 128 mmol/L (132-142) L 08/24/18 12:15 Plasma Sodium 128 mmol/L (130-142) L 08/24/18 12:15 Potassium 5.6 mmol/L (3.4-4.6) H 08/24/18 12:15 Chloride 93 mmol/L (97-106) L 08/24/18 12:15 Carbon Dioxide 25.1 mmol/L (24-32.6) 08/24/18 12:15 Anion Gap 15.5 mmol/L (6.8-13.8) H 08/24/18 12:15 BUN 59 mg/dL (3-23) H D 08/24/18 12:15 Creatinine 3.71 mg/dL (0.4-1.4) H D 08/24/18 12:15 Est GFR (Non-Af Amer) 14 mL/min (60-130) L D 08/24/18 12:15 BUN/Creatinine Ratio 15.9 (9.0-21.6) 08/24/18 12:15 Random Glucose 107 mg/dL (70-110) 08/24/18 12:15 Calcium 8.6 mg/dL (7.9-10.9) 08/24/18 12:15 Calcium Adj for Albumin 9.1 mg/dL (8.4-10.2) 08/24/18 12:15 Total Bilirubin 0.7 mg/dL (0.0-1.1) 08/24/18 12:15 AST 195 U/L (0-48) H 08/24/18 12:15 ALT 53 U/L (19-67) 08/24/18 12:15 Alkaline Phosphatase 112 U/L (50-170) 08/24/18 12:15 Total Protein 6.5 gm/dL (6.2-8.2) 08/24/18 12:15 Albumin 3.0 gm/dl (3.4-5.0) L 08/24/18 12:15 Urine Color Dark yellow 08/24/18 13:54 Urine Appearance Clear (CLEAR) 08/24/18 13:54 Urine pH 5.5 pH (5.0-7.0) 08/24/18 13:54 Ur Specific [place] 1.025 SP.GR. (1.005-1.010) 08/24/18 13:54 Urine Protein Negative mg/dL (NEGATIVE) 08/24/18 13:54 Urine Glucose (UA) Negative mg/dL (NEGATIVE) 08/24/18 13:54 Urine Ketones Negative mg/dL (NEGATIVE) 08/24/18 13:54 Urine Blood 25 /ul (NEGATIVE) H 08/24/18 13:54 Urine Nitrate Negative (NEGATIVE) 08/24/18 13:54 Urine Bilirubin Negative mg/dl (NEGATIVE) 08/24/18 13:54 Urine Urobilinogen Normal EU/dl (NORMAL) 08/24/18 13:54 Ur Leukocyte Esterase Negative /ul (NEGATIVE) 08/24/18 13:54 Urine RBC 0-5 /hpf (0-5) 08/24/18 13:54 Urine WBC 0-5 /hpf (0-5) 08/24/18 13:54 Ur Epithelial Cells 10-25 /hpf (0-5) H 08/24/18 13:54 Urine Bacteria 1+ (NONE) H 08/24/18 13:54 Urine Culture Comments No culture indicated 08/24/18 13:54 Urine Opiates Screen Negative (NEGATIVE) 08/24/18 13:55 Barbiturate Screen Negative (NEGATIVE) 08/24/18 13:55 Ur Phencyclidine Scrn Negative (NEGATIVE) 08/24/18 13:55 Urine Amphetamine Negative (NEGATIVE) 08/24/18 13:55 U Benzodiazepines Scrn Negative (NEGATIVE) 08/24/18 13:55 Urine Cocaine Screen Negative (NEGATIVE) 08/24/18 13:55 Urine Marijuana (THC) Negative (NEGATIVE) 08/24/18 13:55 Ethyl Alcohol Less than 3.0 mg/dL (0.0-10.0) 08/24/18 12:15 Assessment/Plan - Narrative Narrative: Will aggressively fluid resuscitate to see if kidney function improves. She is not on a diuretic. Holding IBU. Will recheck kidney function in the am. She can have tramodol for her pain as needed. Will continue rest of her chronic me dications. Will start her on a CC diet though I am unsure if she has diabetes (she states this has resolved). No dvt ppx as she likely will be discharged home tomorrow morning, if she stays longer she will need dxt ppx. Will recheck CBC in the am, unsure as to the cause of her leukocytosis. No symptoms pointing to infection. Will monitor. She would likely benefit from a piriformis injection to help with the sciatic pain as well as PT to stretch/strengthen. Also consider adding cymbalta as an adjunct to her gabapentin though she will have to have some of her other medications adjusted/stopped. - Assessment/Plan (1) Renal insufficiency Problem: Acute (2) Dehydration Problem: Acute (3) Sciatica Problem: Chronic (4) Leukocytosis Problem: Acute (5) Morbid obesity Problem: Chronic (6) Gait instability Problem: Chronic
[2018-08-24] MEDS ORDERED: AMITRIPTYLINE HCL 25 MG TABLET ONE (19:06)
[2018-08-24] MEDS: traMADol HCL 50 MG TABLET PO SCH ×2 (19:09→19:10)
[2018-08-24] MEDS: ALBUTEROL SULFATE 2.5 MG/0.5 ML VIAL.NEB IH SCH (19:57)
[2018-08-24] MEDS: GABAPENTIN 400 MG CAPSULE PO SCH (20:31)
[2018-08-24] MEDS: FAMOTIDINE 20 MG TABLET PO SCH (20:32)
[2018-08-24] MEDS: QUEtiapine FUMARATE 25 MG TABLET PO SCH (20:32)
[2018-08-24] MEDS ORDERED: AMITRIPTYLINE HCL 50 MG TABLET PO SCH (21:00)
[2018-08-25] MEDS: NORMAL SALINE 1,000 ML IV PRN ×2 (00:13→08:52)
[2018-08-25] MEDS: ALBUTEROL SULFATE 2.5 MG/0.5 ML VIAL.NEB IH SCH ×2 (06:17→10:55)
[2018-08-25 06:48] LABS: Albumin * 2.8 gm/dl (3.4-5.0); Anion Gap 10.6 mmol/L (6.8-13.8); BUN/Creatinine Ratio 28.6 (9.0-21.6); Bilirubin, Total 0.3 mg/dL (0.0-1.1); Calcium * 8.4 mg/dL (7.9-10.9); Carbon Dioxide 27.1 mmol/L (24-32.6); Potassium 4.7 mmol/L (3.4-4.6); Total Protein 6.1 gm/dL (6.2-8.2)
[2018-08-25] MEDS ORDERED: LEVOTHYROXINE SODIUM 125 MCG TABLET PO SCH (07:00)
[2018-08-25 07:36] LABS: Hematocrit 35.7 % (37.0-47.0); Hemoglobin 11.1 gm/dL (12.5-16.0); Mean Corpuscular Hemoglobin 25.8 pg (27-31); Mean Corpuscular Hgb Conc 31.1 g/dl (32-36); Mean Platelet Volume 9.8 fl (8-12.5); Neutrophil # 7.4 K/mm3 (1.3-6.0); Neutrophil % 72.8 % (42-75.0); Platelet Count 335 K/mm3 (150-450); Red Cell Distribution Width 17.5 % (11.5-14.0); White Blood Count 10.2 K/mm3 (4.0-10.5)
[2018-08-25] MEDS: GABAPENTIN 400 MG CAPSULE PO SCH (08:44)
[2018-08-25] MEDS: FAMOTIDINE 20 MG TABLET PO SCH (08:45)
[2018-08-25] MEDS: QUEtiapine FUMARATE 25 MG TABLET PO SCH (08:48)
[2018-08-25] MEDS: traMADol HCL 50 MG TABLET PO SCH (08:48)
[2018-08-25] MEDS ORDERED: amLODIPine BESYLATE 5 MG TABLET PO SCH (09:00)
[2018-08-25] MEDS ORDERED: CITALOPRAM HYDROBROMIDE 20 MG TABLET PO SCH (09:00)
[2018-08-25] MEDS ORDERED: LISINOPRIL 20 MG TABLET PO SCH (09:00)
[2018-08-25] MEDS ORDERED: SIMVASTATIN 20 MG TABLET PO SCH ×2 (09:00→21:00)
--- NOTE | 2018-08-25 10:49 | DS ---
(1) Renal insufficiency Problem: Resolved (2) Dehydration Problem: Resolved (3) Sciatica Problem: Chronic (4) Leukocytosis Problem: Resolved (5) Morbid obesity Problem: Chronic (6) Gait instability Problem: Chronic Description of Stay: Patient was admitted for weakness and gait instability. She was found to be dehydrated and had an acute kidney injury. She stated that she was hurting to much which is why she stopped eating/drinking. Her initial labs had her creatinine to be 3.4 with a GFR of 14. After IV fluid administration her kidney function returned to base as well as her creatinine. She had no acute events overnight and her vitals were stable. She was ready to be discharged home. No changes to her medications were made. Nora Irene has a need for longterm to monitor vital signs and help with medications. The need for home health care skilled services is directly related to the time spent [id number] with the person. 08-25-2018 Procedures Performed: none Results and Findings: Lab Pending Results 08/24/18 12:15: WBC 17.0 H, RBC 4.52, Hgb 11.8 L, Hct 38.1, MCV 84.3, MCH 26.1 L, MCHC 31.0 L, RDW 17.5 H, Plt Count 418, MPV 9.7, Neutrophils % (Manual) 68, Band Neuts % (Manual) 17 H, Lymphocytes % (Manual) 6 L, Monocytes % (Manual) 8, Eosinophils % (Manual) 1, Neutrophils # (Manual) 11.6 H, Lymphocytes # (Manual) 1.0 L, Monocytes # (Manual) 1.4 H, Eosinophils # (Manual) 0.2, Platelet Estimate Normal, RBC Morphology Normal 08/24/18 12:15: Sodium 128 L, Plasma Sodium 128 L, Potassium 5.6 H, Chloride 93 L, Carbon Dioxide 25.1, Anion Gap 15.5 H, BUN 59 H D, Creatinine 3.71 H D, Est GFR (Non-Af Amer) 14 L D, BUN/Creatinine Ratio 15.9, Random Glucose 107, Calcium 8.6, Calcium Adj for Albumin 9.1, Total Bilirubin 0.7, AST 195 H, ALT 53, Alkaline Phosphatase 112, Total Protein 6.5, Albumin 3.0 L, Ethyl Alcohol Less than 3.0 08/24/18 13:54: Urine Color Dark yellow, Urine Appearance Clear, Urine pH 5.5, Ur Specific [place] 1.025, Urine Protein Negative, Urine Glucose (UA) Negative, Urine Ketones Negative, Urine Blood 25 H, Urine Nitrate Negative, Urine Bilirubin Negative, Urine Urobilinogen Normal, Ur Leukocyte Esterase Negative, Urine RBC 0-5, Urine WBC 0-5, Ur Epithelial Cells 10-25 H, Urine Bacteria 1+ H, Urine Culture Comments No culture indicated 08/24/18 13:55: Urine Opiates Screen Negative, Barbiturate Screen Negative, Ur Phencyclidine Scrn Negative, Urine Amphetamine Negative, U Benzodiazepines Scrn Negative, Urine Cocaine Screen Negative, Urine Marijuana (THC) Negative 08/25/18 06:15: WBC 10.2 D, RBC 4.30, Hgb 11.1 L, Hct 35.7 L, MCV 83.0, MCH 25.8 L, MCHC 31.1 L, RDW 17.5 H, Plt Count 335, MPV 9.8, Immature Gran % (Auto) 0.50 H, Immature Gran # (Auto) 0.05 H, Neutrophils % 72.8, Lymphocytes % 12.6 L, Monocytes % 9.6 H, Eosinophils % 3.8 H, Basophils % 0.7, Nucleated RBC % 0.0, Neutrophils # 7.4 H, Lymphocytes # 1.29 L, Monocytes # 1.0, Eosinophils # 0.4, Absolute Basophils 0.1 08/25/18 06:15: Sodium 134, Plasma Sodium 134, Potassium 4.7 H, Chloride 101, Carbon Dioxide 27.1, Anion Gap 10.6, BUN 36 H, Creatinine 1.26, Est GFR (Non-Af Amer) 48 L D, BUN/Creatinine Ratio 28.6 H, Random Glucose 102, Calcium 8.4, Calcium Adj for Albumin 9.0, Total Bilirubin 0.3, AST 172 H, ALT 62, Alkaline Phosphatase 106, Total Protein 6.1 L, Albumin 2.8 L Discharge Location: Home Disposition: [facility] Home Health Condition: Stable Discharge Activity: Activity as tolerated Discharge Diet: Consistent carbs, Low fat/chol Referrals: Sergio Whitt DO [Primary Care Provider] - Problem Oriented Discharge Instructions to Patient/Family: Dehydration, Adult, [id number] Additional Patient Instructions (free text): [facility] new. Nursing and bath aide. Please call report and fax orders upon discharge. Complete Home Medications List: Complete Home Medication List: Albuterol Sulfate [Proair Hfa] 1 - 2 puff IH Q4H PRN #1 inhaler 05/17/16 Albuterol Sulfate [Albuterol Sulfate 0.63 MG/3ML] 0.25 mg IH Q6H PRN 03/12/18 amitriptyline 150 mg tablet 150 mg PO HS #30 tab 05/20/18 levothyroxine 125 mcg tablet 125 mcg PO DAILY #30 tab 05/20/18 Albuterol Sulfate [Albuterol Sulfate 2.5 MG/0.5ML] 2.5 mg INHALATION QIDRT vial.neb 06/09/18 Cefuroxime Axetil [Ceftin] 500 mg PO BID #20 tab 06/09/18 guaiFENesin [Guaifenesin ER] 600 mg PO BID #60 tab.er.12h 06/09/18 predniSONE [Prednisone] 10 mg PO BID #30 tab.ds.pk 06/09/18 pravastatin 40 mg tablet 40 mg PO DAILY #30 tab 06/10/18 amlodipine 5 mg tablet 5 mg PO DAILY #30 tab 06/12/18 blood sugar diagnostic strips See Dose Instructions .ROUTE .MEDSUPPLY #100 ea 06/17/18 quetiapine 50 mg tablet 50 mg PO BID #60 tab 06/17/18 famotidine 20 mg tablet 20 mg PO BID #60 tab 06/18/18 gabapentin 800 mg tablet 800 mg PO QID #120 tab 07/22/18 hydrocodone 7.5 mg-acetaminophen 325 mg tablet 1 tab PO .COMPLEX PRN #150 tab 07/22/18 Ibuprofen [Motrin] 800 mg PO QID PRN 07/29/18 Lisinopril 20 mg PO DAILY 07/29/18 Acetaminophen [Tylenol] 650 mg PO Q4H PRN tab 07/30/18 Nicotine [Nicoderm] 21 mg TD Q24H #30 patch.td24 07/30/18 Priscilla Potty (Commode) 0 .ROUTE .MEDSUPPLY #1 ea 07/31/18 citalopram 40 mg tablet 40 mg PO DAILY #30 tab 08/06/18 knee brace See Rx Instructions .ROUTE .MEDSUPPLY #1 ea 08/06/18 tramadol 50 mg tablet 100 mg PO QID #240 tab 08/06/18
[2018-08-25 12:38] VITALS: BP 107/70
== END 2018-08-25 12:48 | disposition home health service (06) ==
LOC: ER 11:41 → MS 11:41
PROVIDERS: ADMIT Family Medicine; ATTEND Family Medicine
DX: G25.2 Other specified forms of tremor
CPT/HCPCS: 36415; 80053; 80307; 80320; 81001; 85025; 93005; 94640; 96360; 96361; 99285; G0378; G0481

== ENCOUNTER 2018-09-22 18:00 | Inpatient (IN) ==
--- NOTE | 2018-09-22 18:57 | ERNOTE ---
<Nicholas Martinez - Last Filed: 09/22/18 19:51> Lower Extremity HPI - General Lower Extremities Pain: ankle: right Time Seen by Provider: 09/22/18 18:13 Source: patient, family Exam Limitations: no limitations - Immun/Allergies/Home Medications Immunizations: IMMUNIZATION HX Immunizations Up to Date Yes History of Influenza Vaccine Yes Hx Pneumococcal Vaccination Yes Allergies/Adverse Reactions: Allergies Allergy/AdvReac Type Severity Reaction Status Date / Time No Known Drug Allergies Allergy Verified 08/24/18 15:19 Home Medications: HOME MEDICATIONS Albuterol Sulfate [Proair Hfa] 1 - 2 puff IH Q4H PRN #1 inhaler 05/17/16 [Last Taken 06/05/18 13:00] Albuterol Sulfate [Albuterol Sulfate 0.63 MG/3ML] 0.25 mg IH Q6H PRN 03/12/18 [Last Taken 06/05/18 14:00] amitriptyline 150 mg tablet 150 mg PO HS #30 tab 05/20/18 [Last Taken 06/04/18] levothyroxine 125 mcg tablet 125 mcg PO DAILY #30 tab 05/20/18 [Last Taken 06/02/18] Albuterol Sulfate [Albuterol Sulfate 2.5 MG/0.5ML] 2.5 mg INHALATION QIDRT vial.neb 06/09/18 [Last Taken Unknown] Cefuroxime Axetil [Ceftin] 500 mg PO BID #20 tab 06/09/18 [Last Taken Unknown] guaiFENesin [Guaifenesin ER] 600 mg PO BID #60 tab.er.12h 06/09/18 [Last Taken Unknown] predniSONE [Prednisone] 10 mg PO BID #30 tab.ds.pk 06/09/18 [Last Taken Unknown] pravastatin 40 mg tablet 40 mg PO DAILY #30 tab 06/10/18 [Last Taken Unknown] amlodipine 5 mg tablet 5 mg PO DAILY #30 tab 06/12/18 [Last Taken 06/13/18 13:21] blood sugar diagnostic strips See Dose Instructions .ROUTE .MEDSUPPLY #100 ea 06/17/18 [Last Taken Unknown] quetiapine 50 mg tablet 50 mg PO BID #60 tab 06/17/18 [Last Taken Unknown] famotidine 20 mg tablet 20 mg PO BID #60 tab 06/18/18 [Last Taken Unknown] gabapentin 800 mg tablet 800 mg PO QID #120 tab 07/22/18 [Last Taken Unknown] Ibuprofen [Motrin] 800 mg PO QID PRN 07/29/18 [Last Taken Unknown] Lisinopril 20 mg PO DAILY 07/29/18 [Last Taken Unknown] Acetaminophen [Tylenol] 650 mg PO Q4H PRN tab 07/30/18 [Last Taken Unknown] Nicotine [Nicoderm] 21 mg TD Q24H #30 patch.td24 07/30/18 [Last Taken Unknown] Priscilla Potty (Commode) 0 .ROUTE .MEDSUPPLY #1 ea 07/31/18 [Last Taken Unknown] citalopram 40 mg tablet 40 mg PO DAILY #30 tab 08/06/18 [Last Taken Unknown] tramadol 50 mg tablet 100 mg PO QID #240 tab 08/06/18 [Last Taken Unknown] hydrocodone 7.5 mg-acetaminophen 325 mg tablet 1 tab PO .COMPLEX PRN #150 tab 09/01/18 [Last Taken Unknown] knee brace See Rx Instructions .ROUTE .MEDSUPPLY #1 ea 09/01/18 [Last Taken Unknown] metformin 500 mg tablet 500 mg PO BID #60 tab 09/01/18 [Last Taken Unknown] - History of Present Illness Narrative: Patient was seen earlier today for an ankle fracture from a trip and fall at home. When the daughter got her home she started shaking so bad that the daughter was not able to get the patient into the house. Daughter states that she is fallen 3 times once in a parking lot and does not appear to be safe at home. Occurred: this afternoon Location of Incident: home Method of Injury: Reports: fell - Earlier today and is being treated for an ankle fracture Reason for Fall: Reports: lost balance Loss of Consciousness: Reports: no loss of consciousness Associated Symptoms: Reports: unable to bear weight Other Injuries: Reports: none Prior Treament: Reports: recently seen, treated by physician Review of Systems - Review of Systems Constitutional: Present: See HPI EYE: Present: no symptoms reported ENT: Present: no symptoms reported Respiratory: Present: no symptoms reported Cardiology: Present: no symptoms reported Gastrointestinal/Abdominal: Present: no symptoms reported Genitourinary: Present: no symptoms reported Musculoskeletal: Present: no symptoms reported Skin: Present: no symptoms reported Neurological: Present: other - Chronic tremors although they appear to be exacerbated Endocrine: Present: no symptoms reported Hematologic/Lymphatic: Present: no symptoms reported Psych: Present: no symptoms reported Medical History (Last Reviewed 09/22/18 @ 18:11 by Leandra Winters RN) Prerenal azotemia (Chronic) Type II diabetes mellitus (Chronic) Chronic low back pain with right-sided sciatica (Chronic) Conjunctivitis due to adenovirus, both eyes (Acute) Hypothyroidism (Chronic) Onset Date: Unknown Hyperglyceridemia (Chronic) Onset Date: Unknown Hyperlipidemia due to dietary fat intake (Chronic) Onset Date: Unknown Diabetes mellitus (Chronic) Onset Date: Unknown COPD (chronic obstructive pulmonary disease) (Chronic) Onset Date: Unknown Bipolar disorder (Chronic) Onset Date: Unknown Arthritis of knee (Chronic) Onset Date: Unknown Accidental overdose Back pain Surgical History: Surgical History (Last Reviewed 09/22/18 @ 18:11 by Leandra Winters RN) History of total abdominal hysterectomy and bilateral salpingo-oophorectomy Onset Date: Unknown Age 28 Hx of cholecystectomy Onset Date: Unknown Age 35 Hx of tubal ligation Onset Date: Unknown Age 26 Family History: Family History (Last Reviewed 09/01/18 @ 08:13 by Yudi Soliz) Mother , @ age 49; unknown to cause No problems noted. Social History: Preferred Language Citizen Of [place] Do you have any taoism or No cultural preference? Smoking Status Current every day smoker Psych History Hx of Anxiety,Hx of Depression,Hx of Bipolar Disorder Alcohol Use none Drug Use none (Last Updated 09/01/18 @ 18:24 by Sergio Whitt DO) No Social History Section defined Physical Exam - Physical Exam General Appearance: Present: wd/wn, alert, mild distress Head Exam: Present: normal inspection, no evidence of injury Eye Exam: Normal inspection: bilateral, PERRL: bilateral Ears, Nose, Throat: Present: normal pharynx, dry mucous membranes Neck: Present: normal inspection, nontender Respiratory: Present: no respiratory distress, normal breath sounds, no accessory muscle use, chest nontender, lungs clear Cardiovascular/Chest: Present: regular rate, rhythm, no murmur, normal peripheral pulses Gastrointestinal/Abdominal: Present: normal bowel sounds, nontender, nondistended, soft, no organomegaly Rectal Exam: Present: deferred Back Exam: Present: normal inspection, normal range of motion Extremity Exam: Present: normal inspection, non-tender, no edema, normal range of motion Neurological Exam: Present: alert, oriented, normal mood/affect, other - Significant tremors in the upper extremities Skin Exam: Present: normal color, warm/dry Lymphatic Exam: Present: no adenopathy Progress - Vital Signs Vital Signs: Vital Signs 09/22/18 18:09 Temperature 36.1 C Respiratory Rate 15 Blood Pressure 104/66 O2 Sat by Pulse Oximetry 98 - Progress/Reassessment Chief Complaint: Lower Extremity Pain/ Injury - Transfer of Care Physician Sign Out: Nicholas Martinez Receiving Physician: Portillo Saucedo Expected Disposition: Discharge Departure Clinical Impression: Pyelonephritis, Dehydration Altered mental status Qualifiers: Altered mental status type: somnolence Qualified Code(s): R40.0 - Somnolence - Departure Disposition: Still a patient Condition: Fair <Portillo Saucedo - Last Filed: 09/23/18 00:53> Lower Extremity HPI - Immun/Allergies/Home Medications Immunizations: IMMUNIZATION HX Immunizations Up to Date Yes History of Influenza Vaccine Yes Hx Pneumococcal Vaccination Yes Medical History (Last Reviewed 09/22/18 @ 23:50 by Portillo Saucedo DO) Prerenal azotemia (Chronic) Type II diabetes mellitus (Chronic) Chronic low back pain with right-sided sciatica (Chronic) Conjunctivitis due to adenovirus, both eyes (Acute) Hypothyroidism (Chronic) Onset Date: Unknown Hyperglyceridemia (Chronic) Onset Date: Unknown Hyperlipidemia due to dietary fat intake (Chronic) Onset Date: Unknown Diabetes mellitus (Chronic) Onset Date: Unknown COPD (chronic obstructive pulmonary disease) (Chronic) Onset Date: Unknown Bipolar disorder (Chronic) Onset Date: Unknown Arthritis of knee (Chronic) Onset Date: Unknown Accidental overdose Back pain Surgical History: Surgical History (Last Reviewed 09/22/18 @ 23:50 by Portillo Saucedo DO) History of total abdominal hysterectomy and bilateral salpingo-oophorectomy Onset Date: Unknown Age 28 Hx of cholecystectomy Onset Date: Unknown Age 35 Hx of tubal ligation Onset Date: Unknown Age 26 Family History: Family History (Last Reviewed 09/01/18 @ 08:13 by Yudi Soliz) Mother , @ age 49; unknown to cause No problems noted. Social History: Preferred Language Citizen Of [place] Do you have any taoism or No cultural preference? Smoking Status Current every day smoker Psych History Hx of Anxiety,Hx of Depression,Hx of Bipolar Disorder Alcohol Use none Drug Use none (Last Updated 09/01/18 @ 18:24 by Sergio Whitt DO) No Social History Section defined Physical Exam - Physical Exam General Appearance: Present: lethargic Neck: Present: normal inspection, nontender, supple Respiratory: Present: no respiratory distress, no accessory muscle use Skin Exam: Present: other - multiple bruises on arms. Progress - Results and Orders Patient's Lab Results:: I have reviewed the patient's lab results. Results and Orders: Laboratory Tests 09/22/18 09/22/18 09/22/18 20:00 20:10 22:25 WBC 18.2 H Hgb 10.9 L Hct 36.4 L Plt Count 516 H Sodium 131 L Potassium 5.9 H D Chloride 98 Carbon Dioxide 19.3 L BUN 44 H Creatinine 4.22 H D Random Glucose 101 Calcium 8.5 Magnesium 2.4 Total Bilirubin 0.4 AST 94 H ALT 32 Alkaline Phosphatase 132 Total Protein 6.6 Albumin 3.0 L Urine Color Yellow Urine Appearance Clear Urine pH 5.0 Ur Specific [place] >=1.030 Urine Protein Negative Urine Glucose (UA) Negative Urine Ketones 5 Urine Blood Negative Urine Nitrate Negative Urine Bilirubin 1 H Urine Ictotest Positive H Urine Urobilinogen Normal Ur Leukocyte Esterase 25 H Urine RBC 5-10 H Urine WBC 5-10 H Ur Epithelial Cells 5-10 H Amorphous Sediment Trace Urine Bacteria 1+ H Hyaline Casts Trace Urine Culture Comments Culture to follow - Vital Signs Patient's Vital Signs:: I have reviewed the patient's vital signs. Vital Signs: Vital Signs 09/22/18 18:09 09/22/18 20:00 09/22/18 20:52 Temperature 36.1 C Pulse Rate 90 96 Respiratory Rate 15 16 16 Blood Pressure 104/66 152/90 H 113/65 O2 Sat by Pulse Oximetry 98 94 93 09/22/18 21:15 09/22/18 21:30 09/22/18 22:00 Temperature Pulse Rate 96 96 94 Respiratory Rate 16 18 18 Blood Pressure 146/99 H 136/74 150/77 H O2 Sat by Pulse Oximetry 94 94 94 09/22/18 22:30 Temperature 36.1 C Pulse Rate 95 Respiratory Rate 18 Blood Pressure 157/65 H O2 Sat by Pulse Oximetry 96 - X-Ray X-Ray #1 X-Ray: chest Interpretation: Interp. by me X-ray Comments: Cardiomegaly consistent with previous CXR, No infiltrate or effusion. - Progress/Reassessment Progress:: Improved - Pt less somnolent than previous. Progress Note-Subjective: 09/22/18 23:[address] Faulkner and she agrees with observation admission.
[2018-09-22] MEDS ORDERED: NORMAL SALINE 1,000 ML IV ONE (19:14)
[2018-09-22 20:14] LABS: Anion Gap 19.6 mmol/L (6.8-13.8); BUN/Creatinine Ratio 10.4 (9.0-21.6); Bilirubin, Total 0.4 mg/dL (0.0-1.1); Calcium * 8.5 mg/dL (7.9-10.9); Carbon Dioxide 19.3 mmol/L (24-32.6); Magnesium 2.4 mg/dL (1.2-2.8); Potassium 5.9 mmol/L (3.4-4.6); Total Protein 6.6 gm/dL (6.2-8.2)
[2018-09-22 20:17] LABS: Hematocrit 36.4 % (37.0-47.0); Hemoglobin 10.9 gm/dL (12.5-16.0); Mean Cell Volume 84.1 fl (78-100); Mean Corpuscular Hemoglobin 25.2 pg (27-31); Mean Corpuscular Hgb Conc 29.9 g/dl (32-36); Mean Platelet Volume 9.5 fl (8-12.5); Platelet Count 516 K/mm3 (150-450); Red Blood Count 4.33 M/mm3 (4.2-5.4); Red Cell Distribution Width 16.8 % (11.5-14.0); White Blood Count 18.2 K/mm3 (4.0-10.5)
[2018-09-22 20:19] LABS: Total Cells Counted 100
[2018-09-22 21:08] LABS: Band 1 % (0-2.0); Immature Granulocyte 1 (0-1); Lymphocyte 13 % (20-51); Monocyte 10 % (0-9); Neutrophil 75 % (42-75); Neutrophil # 13.7 K/mm3 (1.3-6.0)
[2018-09-22 22:30] LABS: Urine Bilirubin 1 mg/dl (NEGATIVE); Urine Blood Negative /ul (NEGATIVE); Urine Ketone 5 mg/dL (NEGATIVE); Urine Nitrite Negative (NEGATIVE); Urine Protein Negative (NEGATIVE); Urine Specific Gravity >=1.030 SP.GR. (1.005-1.010); Urine Urobilinogen Normal (NORMAL)
[2018-09-22 22:50] LABS: Urine Appearance Clear (CLEAR); Urine Bacteria 1+; Urine Color Yellow; Urine Hyaline Cast TRACE /LPF
[2018-09-22 22:51] LABS: Urine Amorphous Sediment TRACE (NONE-FEW)
[2018-09-23] MEDS ORDERED: cefTRIAXone SODIUM 1,000 MG/100 ML BAG IV ONE (00:01)
[2018-09-23] MEDS ORDERED: NORMAL SALINE 1,000 ML IV ONE (00:11)
[2018-09-23 05:47] LABS: Hematocrit 32.6 % (37.0-47.0); Hemoglobin 10.1 gm/dL (12.5-16.0); Mean Cell Volume 82.7 fl (78-100); Mean Corpuscular Hemoglobin 25.6 pg (27-31); Mean Platelet Volume 9.3 fl (8-12.5); Neutrophil # 9.5 K/mm3 (1.3-6.0); Neutrophil % 79.7 % (42-75.0); Platelet Count 407 K/mm3 (150-450); Red Blood Count 3.94 M/mm3 (4.2-5.4); Red Cell Distribution Width 16.7 % (11.5-14.0); White Blood Count 11.9 K/mm3 (4.0-10.5)
[2018-09-23 06:22] LABS: Anion Gap 15.1 mmol/L (6.8-13.8); BUN/Creatinine Ratio 15.3 (9.0-21.6); Calcium * 8.2 mg/dL (7.9-10.9); Carbon Dioxide 24.1 mmol/L (24-32.6); Estimated Creat Clear 22.4; Potassium 4.2 mmol/L (3.4-4.6)
[2018-09-23] MEDS ORDERED: ALBUTEROL SULFATE 2.5 MG/0.5 ML VIAL.NEB IH PRN (12:34)
[2018-09-23] MEDS ORDERED: ACETAMINOPHEN 325 MG TABLET PO PRN (12:34)
--- NOTE | 2018-09-23 13:18 | HP ---
Chief Complaint - Chief Complaint Date of Service: 09/23/18 Time of Service: 12:15 Chief Complaint: Ankle fracture, loss of mobility, lightheadedness History of Present Illness: Nora ge is a 48-year-old female who fell and broke her ankle 2 days ago. She was seen in the emergency room and placed in a walking boot. She was unable to care for herself at home. The ankle had become more swollen and ecchymotic and she was brought back to the hospital. She is also had episode of lightheadedness and ER thought perhaps she was a little dry. She was admitted to observation. Her initial creatinine was greater than 4.2 and today's is improved after rehydration but still with a EGFR of 22 today. I will recheck her renal function studies and electrolytes again tomorrow morning. We will attempt to find long-term care arrangements for her. Her renal status on admission would probably qualify her for regular inpatient stay. This renal insufficiency is almost certainly the cause of her lightheadedness. She does not seem to have any of that today. Medical History (Last Reviewed 09/23/18 @ 03:54 by Naye Garcia RN) Prerenal azotemia (Chronic) Type II diabetes mellitus (Chronic) Chronic low back pain with right-sided sciatica (Chronic) Conjunctivitis due to adenovirus, both eyes (Acute) Hypothyroidism (Chronic) Onset Date: Unknown Hyperglyceridemia (Chronic) Onset Date: Unknown Hyperlipidemia due to dietary fat intake (Chronic) Onset Date: Unknown Diabetes mellitus (Chronic) Onset Date: Unknown COPD (chronic obstructive pulmonary disease) (Chronic) Onset Date: Unknown Bipolar disorder (Chronic) Onset Date: Unknown Arthritis of knee (Chronic) Onset Date: Unknown Accidental overdose Back pain Surgical History: Surgical History (Last Reviewed 09/23/18 @ 03:55 by Naye Garcia RN) History of total abdominal hysterectomy and bilateral salpingo-oophorectomy Onset Date: Unknown Age 28 Hx of cholecystectomy Onset Date: Unknown Age 35 Hx of tubal ligation Onset Date: Unknown Age 26 Family History: Family History (Last Reviewed 09/01/18 @ 08:13 by Yudi Soliz) Mother , @ age 49; unknown to cause No problems noted. Social History: Patient Lives/Resources Home with Utilized Occupation Nurses Assistance Preferred Language Czech Do you have any hinduism or Yes: Jehovah'S Witness cultural preference? Smoking Status Current every day smoker Have you smoked in the past 12 Yes months Psych History Hx of Anxiety,Hx of Depression,Hx of Bipolar Disorder Alcohol Use none Drug Use none (Last Updated 09/01/18 @ 18:24 by Sergio Whitt DO) No Social History Section defined Review Of Systems (GEN) - Review of Systems EENTM: Present: No Symptoms Reported Respiratory: Present: Cough, Shortness of Breath, Wheezing Cardiac: Present: No Symptoms Reported Abdominal: Present: No Symptoms Reported Genitourinary: Present: No Symptoms Reported Musculoskeletal: Present: Other - Fractured right ankle Neurological: Present: Anxiety, Emotional Problems Skin: Present: No Symptoms Reported Endocrine: Present: No Symptoms Reported Immunizations: IMMUNIZATION HX Immunizations Up to Date Yes History of Influenza Vaccine Yes Hx Pneumococcal Vaccination Yes Allergies/Adverse Reactions: Allergies Allergy/AdvReac Type Severity Reaction Status Date / Time No Known Drug Allergies Allergy Verified 08/24/18 15:19 Home Medications: HOME MEDICATIONS Albuterol Sulfate [Proair Hfa] 1 - 2 puff IH Q4H PRN #1 inhaler 05/17/16 [Last Taken 06/05/18 13:00] amitriptyline 150 mg tablet 150 mg PO HS #30 tab 05/20/18 [Last Taken 06/04/18] levothyroxine 125 mcg tablet 125 mcg PO DAILY #30 tab 05/20/18 [Last Taken 06/02/18] Albuterol Sulfate [Albuterol Sulfate 2.5 MG/0.5ML] 2.5 mg INHALATION QIDRT vial.neb 06/09/18 [Last Taken Unknown] pravastatin 40 mg tablet 40 mg PO DAILY #30 tab 06/10/18 [Last Taken Unknown] blood sugar diagnostic strips See Dose Instructions .ROUTE .MEDSUPPLY #100 ea 06/17/18 [Last Taken Unknown] quetiapine 50 mg tablet 50 mg PO BID #60 tab 06/17/18 [Last Taken Unknown] famotidine 20 mg tablet 20 mg PO BID #60 tab 06/18/18 [Last Taken Unknown] gabapentin 800 mg tablet 800 mg PO QID #120 tab 07/22/18 [Last Taken Unknown] Ibuprofen [Motrin] 800 mg PO QID PRN 07/29/18 [Last Taken Unknown] Lisinopril 20 mg PO DAILY 07/29/18 [Last Taken Unknown] Acetaminophen [Tylenol] 650 mg PO Q4H PRN tab 07/30/18 [Last Taken Unknown] Nicotine [Nicoderm] 21 mg TD Q24H #30 patch.td24 07/30/18 [Last Taken Unknown] Priscilla Potty (Commode) 0 .ROUTE .MEDSUPPLY #1 ea 07/31/18 [Last Taken Unknown] citalopram 40 mg tablet 40 mg PO DAILY #30 tab 08/06/18 [Last Taken Unknown] tramadol 50 mg tablet 100 mg PO QID #240 tab 08/06/18 [Last Taken Unknown] hydrocodone 7.5 mg-acetaminophen 325 mg tablet 1 tab PO .COMPLEX PRN #150 tab 09/01/18 [Last Taken Unknown] knee brace See Rx Instructions .ROUTE .MEDSUPPLY #1 ea 09/01/18 [Last Taken Unknown] metformin 500 mg tablet 500 mg PO BID #60 tab 09/01/18 [Last Taken Unknown] Amlodipine Besylate 5 mg PO DAILY 09/23/18 [Last Taken Unknown] Exam - Exam Vital Signs: Vital Signs - Last Taken Temp 37.5 C 09/23/18 10:29 Pulse 101 H 09/23/18 10:29 Resp 18 09/23/18 10:29 BP 116/75 09/23/18 10:29 Pulse Ox 94 09/23/18 10:29 Constitutional: Present: Alert, Oriented x3, Cooperative, Well developed, Well nourished, Moderate distress, Middle aged ENT Exam: Present: normal ENT inspection Eye Exam: bilateral eye: normal inspection, PERRL, EOMI Neck: Present: non-tender, full range of motion Back Exam: Present: normal inspection Breasts: Present: Exam deferred Respiratory: Present: chest non-tender, decreased breath sounds, rhonchi, stridor, wheezing Cardiovascular/Chest: Present: normal peripheral pulses, regular rate, rhythm, no chest tenderness, no edema, no gallop, no JVD, no murmur, no rub Peripheral Pulses: carotid (R): 2+, carotid (L): 2+, radial (R): 2+, radial (L): 2+ Abdomen: Present: Normal bowel sounds, soft, nontender, nondistended, no rebound tenderness, no hepatospenomegaly, no masses, obese, negative Arguelles sign. Absent: tender, guarding, rigidity, rebound tenderness, CVA tenderness, suprapubic tenderness, firm, positive Arguelles sign, mass palpable /Rectal: Present: Exam deferred Extremity: Present: normal range of motion, non-tender, normal inspection, no calf tenderness, normal capillary refill, pedal edema, swelling, other - swelling and ecchymosis without deformity. Xray shows an acute posterior maleolar minimally displaced fracture. Old lateral maleolar stylid fracture. Ankle mortise tilt etiology uncertain. 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 Absent: normal mood/affect Appearance: Present: appropriate appearance, appropriate insight, neat Eye contact: Present: cooperative, good eye contact, normal speech - for her. speech is pressured. Thoughts: Present: flight of ideas, paranoid. Absent: normal mood /affect Diagnostic Studies: Abnormal Lab Results 09/22/18 09/22/18 09/22/18 Range/Units 20:00 20:10 22:25 WBC 18.2 H (4.0-10.5) K/mm3 RBC (4.2-5.4) M/mm3 Hgb 10.9 L (12.5-16.0) gm/dL Hct 36.4 L (37.0-47.0) % MCH 25.2 L (27-31) pg MCHC 29.9 L (32-36) g/dl RDW 16.8 H (11.5-14.0) % Plt Count 516 H (150-450) K/mm3 Immature Gran # (Auto) (0.000-0.0310) K/mm3 Neutrophils % (42-75.0) % Lymphocytes % (20-51) % Lymphocytes % (Manual) 13 L (20-51) % Monocytes % (Manual) 10 H (0-9) % Neutrophils # (1.3-6.0) K/mm3 Neutrophils # (Manual) 13.7 H (1.3-6.0) K/mm3 Lymphocytes # (1.5-3.5) k/mm3 Monocytes # (0.0-1.0) k/mm3 Monocytes # (Manual) 1.8 H (0.0-1.0) k/mm3 Sodium 131 L (132-142) mmol/L Potassium 5.9 H D (3.4-4.6) mmol/L Carbon Dioxide 19.3 L (24-32.6) mmol/L Anion Gap 19.6 H (6.8-13.8) mmol/L BUN 44 H (3-23) mg/dL Creatinine 4.22 H D (0.4-1.4) mg/dL Est GFR (Non-Af Amer) 12 L D (60-130) mL/min AST 94 H (0-48) U/L Albumin 3.0 L (3.4-5.0) gm/dl Urine Bilirubin 1 H (NEGATIVE) mg/dl Urine Ictotest Positive H (NEGATIVE) Ur Leukocyte Esterase 25 H (NEGATIVE) /ul Urine RBC 5-10 H (0-5) /hpf Urine WBC 5-10 H (0-5) /hpf Ur Epithelial Cells 5-10 H (0-5) /hpf Urine Bacteria 1+ H (NONE) 09/23/18 09/23/18 Range/Units 05:41 05:41 WBC 11.9 H D (4.0-10.5) K/mm3 RBC 3.94 L (4.2-5.4) M/mm3 Hgb 10.1 L (12.5-16.0) gm/dL Hct 32.6 L (37.0-47.0) % MCH 25.6 L (27-31) pg MCHC 31.0 L (32-36) g/dl RDW 16.7 H (11.5-14.0) % Plt Count (150-450) K/mm3 Immature Gran # (Auto) 0.04 H (0.000-0.0310) K/mm3 Neutrophils % 79.7 H (42-75.0) % Lymphocytes % 10.4 L (20-51) % Lymphocytes % (Manual) (20-51) % Monocytes % (Manual) (0-9) % Neutrophils # 9.5 H (1.3-6.0) K/mm3 Neutrophils # (Manual) (1.3-6.0) K/mm3 Lymphocytes # 1.23 L (1.5-3.5) k/mm3 Monocytes # 1.1 H (0.0-1.0) k/mm3 Monocytes # (Manual) (0.0-1.0) k/mm3 Sodium (132-142) mmol/L Potassium (3.4-4.6) mmol/L Carbon Dioxide (24-32.6) mmol/L Anion Gap 15.1 H (6.8-13.8) mmol/L BUN 38 H (3-23) mg/dL Creatinine 2.49 H D (0.4-1.4) mg/dL Est GFR (Non-Af Amer) 22 L D (60-130) mL/min AST (0-48) U/L Albumin (3.4-5.0) gm/dl Urine Bilirubin (NEGATIVE) mg/dl Urine Ictotest (NEGATIVE) Ur Leukocyte Esterase (NEGATIVE) /ul Urine RBC (0-5) /hpf Urine WBC (0-5) /hpf Ur Epithelial Cells (0-5) /hpf Urine Bacteria (NONE) Laboratory Results WBC 11.9 K/mm3 (4.0-10.5) H D 09/23/18 05:41 RBC 3.94 M/mm3 (4.2-5.4) L 09/23/18 05:41 Hgb 10.1 gm/dL (12.5-16.0) L 09/23/18 05:41 Hct 32.6 % (37.0-47.0) L 09/23/18 05:41 MCV 82.7 fl (78-100) 09/23/18 05:41 MCH 25.6 pg (27-31) L 09/23/18 05:41 MCHC 31.0 g/dl (32-36) L 09/23/18 05:41 RDW 16.7 % (11.5-14.0) H 09/23/18 05:41 Plt Count 407 K/mm3 (150-450) 09/23/18 05:41 MPV 9.3 fl (8-12.5) 09/23/18 05:41 Immature Gran % (Auto) 0.30 % (0.001-0.429) 09/23/18 05:41 Immature Gran # (Auto) 0.04 K/mm3 (0.000-0.0310) H 09/23/18 05:41 Neutrophils % 79.7 % (42-75.0) H 09/23/18 05:41 Neutrophils % (Manual) 75 % (42-75) 09/22/18 20:10 Band Neuts % (Manual) 1 % (0-2.0) 09/22/18 20:10 Lymphocytes % 10.4 % (20-51) L 09/23/18 05:41 Lymphocytes % (Manual) 13 % (20-51) L 09/22/18 20:10 Monocytes % 8.9 % (0.0-9) 09/23/18 05:41 Monocytes % (Manual) 10 % (0-9) H 09/22/18 20:10 Eosinophils % 0.4 % (0.0-3.0) 09/23/18 05:41 Basophils % 0.3 % (0.0-1.0) 09/23/18 05:41 Nucleated RBC % 0.0 k/mm3 (0-1) 09/23/18 05:41 Immature Granulocytes 1 (0-1) 09/22/18 20:10 Neutrophils # 9.5 K/mm3 (1.3-6.0) H 09/23/18 05:41 Neutrophils # (Manual) 13.7 K/mm3 (1.3-6.0) H 09/22/18 20:10 Lymphocytes # 1.23 k/mm3 (1.5-3.5) L 09/23/18 05:41 Lymphocytes # (Manual) 2.4 k/mm3 (1.5-3.5) 09/22/18 20:10 Monocytes # 1.1 k/mm3 (0.0-1.0) H 09/23/18 05:41 Monocytes # (Manual) 1.8 k/mm3 (0.0-1.0) H 09/22/18 20:10 Eosinophils # 0.1 k/mm3 (0.0-0.7) 09/23/18 05:41 Absolute Basophils 0.0 k/mm3 (0.0-0.1) 09/23/18 05:41 Sodium 134 mmol/L (132-142) 09/23/18 05:41 Plasma Sodium 134 mmol/L (130-142) 09/23/18 05:41 Potassium 4.2 mmol/L (3.4-4.6) D 09/23/18 05:41 Chloride 99 mmol/L (97-106) 09/23/18 05:41 Carbon Dioxide 24.1 mmol/L (24-32.6) 09/23/18 05:41 Anion Gap 15.1 mmol/L (6.8-13.8) H 09/23/18 05:41 BUN 38 mg/dL (3-23) H 09/23/18 05:41 Creatinine 2.49 mg/dL (0.4-1.4) H D 09/23/18 05:41 Est GFR (Non-Af Amer) 22 mL/min (60-130) L D 09/23/18 05:41 BUN/Creatinine Ratio 15.3 (9.0-21.6) 09/23/18 05:41 Random Glucose 95 mg/dL (70-110) 09/23/18 05:41 Calcium 8.2 mg/dL (7.9-10.9) 09/23/18 05:41 Calcium Adj for Albumin 9.0 mg/dL (8.4-10.2) 09/22/18 20:00 Magnesium 2.4 mg/dL (1.2-2.8) 09/22/18 20:00 Total Bilirubin 0.4 mg/dL (0.0-1.1) 09/22/18 20:00 AST 94 U/L (0-48) H 09/22/18 20:00 ALT 32 U/L (19-67) 09/22/18 20:00 Alkaline Phosphatase 132 U/L (50-170) 09/22/18 20:00 Total Protein 6.6 gm/dL (6.2-8.2) 09/22/18 20:00 Albumin 3.0 gm/dl (3.4-5.0) L 09/22/18 20:00 Urine Color Yellow 09/22/18 22:25 Urine Appearance Clear (CLEAR) 09/22/18 22:25 Urine pH 5.0 pH (5.0-7.0) 09/22/18 22:25 Ur Specific [place] >=1.030 SP.GR. (1.005-1.010) 09/22/18 22:25 Urine Protein Negative mg/dL (NEGATIVE) 09/22/18 22:25 Urine Glucose (UA) Negative mg/dL (NEGATIVE) 09/22/18 22:25 Urine Ketones 5 mg/dL (NEGATIVE) 09/22/18 22:25 Urine Blood Negative /ul (NEGATIVE) 09/22/18 22:25 Urine Nitrate Negative (NEGATIVE) 09/22/18 22:25 Urine Bilirubin 1 mg/dl (NEGATIVE) H 09/22/18 22:25 Urine Ictotest Positive (NEGATIVE) H 09/22/18 22:25 Urine Urobilinogen Normal EU/dl (NORMAL) 09/22/18 22:25 Ur Leukocyte Esterase 25 /ul (NEGATIVE) H 09/22/18 22:25 Urine RBC 5-10 /hpf (0-5) H 09/22/18 22:25 Urine WBC 5-10 /hpf (0-5) H 09/22/18 22:25 Ur Epithelial Cells 5-10 /hpf (0-5) H 09/22/18 22:25 Amorphous Sediment Trace (NONE-FEW) 09/22/18 22:25 Urine Bacteria 1+ (NONE) H 09/22/18 22:25 Hyaline Casts Trace /LPF (NONE) 09/22/18 22:25 Urine Culture Comments Culture to follow 09/22/18 22:25 Assessment/Plan - Narrative Narrative: 1. PT eval for mobility 2. Orthopedic consult regarding fracture management 3. Pain medication as ordered 4. Withhold metformin due to renal insufficiency 5. Monitor renal status and electrolytes 6. Consider alf placement if one can be found for rehab. - Assessment/Plan (1) Dehydration Problem: Acute (2) Renal insufficiency Problem: Acute (3) Ankle fracture, right Problem: Acute Qualifiers: Encounter type: subsequent encounter Fracture type: closed Fracture healing: with routine healing Qualified Code(s): S82.891D - Other fracture of right lower leg, subsequent encounter for closed fracture with routine healing (4) Type II diabetes mellitus Problem: Chronic Qualifiers: Diabetes mellitus termite helper insulin use: with termite helper use Diabetes mellitus complication status: with kidney complications Diabetes mellitus complication detail: with chronic kidney disease Chronic kidney disease stage: stage 4 (severe) Qualified Code(s): E11.22 - Type 2 diabetes mellitus with diabetic chronic kidney disease; N18.4 - Chronic kidney disease, stage 4 (severe); Z79.4 - custodial (current) use of insulin (5) COPD (chronic obstructive pulmonary disease) with emphysema Problem: Chronic Qualifiers: Emphysema type: panlobular Qualified Code(s): J43.1 - Panlobular emphysema (6) Morbid obesity Problem: Chronic (7) Gait instability Problem: Chronic
--- NOTE | 2018-09-23 13:29 | CONS ---
HPI - General Narrative: Ira reports she slipped on the ice at home injuring her right ankle. She reports she is unable to bear weight on the right ankle due to pain. She was initially evaluated in the emergency department on September 22 with x-rays. She is currently admitted to the hospital for dehydration. She was placed in a cam boot in the emergency department. She has no complaints of right knee pain or other complaints related to this fall. Source: patient - History of Present Illness Allergies/Adverse Reactions: Allergies No Known Drug Allergies Allergy (Verified 08/24/18 15:19) Home Medications: Home Medications Medication Instructions Recorded Last Taken Albuterol Sulfate [Proair Hfa] 1 - 2 puff IH Q4H PRN #1 inhaler 05/17/16 06/05/18 13:00 amitriptyline 150 mg tablet 150 mg PO HS #30 tab 05/20/18 06/04/18 levothyroxine 125 mcg tablet 125 mcg PO DAILY #30 tab 05/20/18 06/02/18 Albuterol Sulfate [Albuterol 2.5 mg INHALATION QIDRT vial.neb 06/09/18 Unknown Sulfate 2.5 MG/0.5ML] pravastatin 40 mg tablet 40 mg PO DAILY #30 tab 06/10/18 Unknown blood sugar diagnostic strips See Dose Instructions .ROUTE 06/17/18 Unknown .MEDSUPPLY #100 ea quetiapine 50 mg tablet 50 mg PO BID #60 tab 06/17/18 Unknown famotidine 20 mg tablet 20 mg PO BID #60 tab 06/18/18 Unknown gabapentin 800 mg tablet 800 mg PO QID #120 tab 07/22/18 Unknown Ibuprofen [Motrin] 800 mg PO QID PRN 07/29/18 Unknown Lisinopril 20 mg PO DAILY 07/29/18 Unknown Acetaminophen [Tylenol] 650 mg PO Q4H PRN tab 07/30/18 Unknown Nicotine [Nicoderm] 21 mg TD Q24H #30 patch.td24 07/30/18 Unknown Priscilla Potty (Commode) 0 .ROUTE .MEDSUPPLY #1 ea 07/31/18 Unknown citalopram 40 mg tablet 40 mg PO DAILY #30 tab 08/06/18 Unknown tramadol 50 mg tablet 100 mg PO QID #240 tab 08/06/18 Unknown hydrocodone 7.5 mg-acetaminophen 1 tab PO .COMPLEX PRN #150 tab 09/01/18 Unknown 325 mg tablet knee brace See Rx Instructions .ROUTE 09/01/18 Unknown .MEDSUPPLY #1 ea metformin 500 mg tablet 500 mg PO BID #60 tab 09/01/18 Unknown Amlodipine Besylate 5 mg PO DAILY 09/23/18 Unknown Procedures Application of splint (11/10/01) Introduction of Serum, Toxoid and Vaccine into Muscle, Percutaneous Approach (06/05/18) Measurement of Arterial Saturation, Peripheral, Percutaneous Approach (05/30/18) Other immobilization, pressure, and attention to wound (05/14/02) Physical Examination - Exam Narrative: Right lower extremity in a cam boot. Cam boot was removed which was painful for patient. She has edema of the right foot and ankle. Ecchymosis medially and laterally right foot and ankle. Tenderness over the deltoid and medial malleolus with palpation. Tenderness over lateral malleolus. Tenderness distal tibia posteriorly. Mild tenderness down in the foot. She reports sensation is intact to light touch. Foot is with good color and no erythema. No tenderness with palpation up and about the knee. X-rays reviewed show lateral tilt to the talus. On the lateral does appear to have a distal fibular fracture. There is posterior malleolus fracture less than 10% of articular surface distal tibia. Vital Signs: Vital Signs - Last Taken Temp 37.5 C 09/23/18 10:29 Pulse 101 H 09/23/18 10:29 Resp 18 09/23/18 10:29 BP 116/75 09/23/18 10:29 Pulse Ox 94 09/23/18 10:29 O2 Oxygen Delivery Method Room Air - Results and Findings: Lab/Microbiology results last 24 hrs: Abnormal/Pending Laboratory Last 24 HRS 09/23/18 09/23/18 09/22/18 05:41 05:41 22:25 WBC 11.9 H D RBC 3.94 L Hgb 10.1 L Hct 32.6 L MCH 25.6 L MCHC 31.0 L RDW 16.7 H Plt Count Immature Gran # (Auto) 0.04 H Neutrophils % 79.7 H Lymphocytes % 10.4 L Lymphocytes % (Manual) Monocytes % (Manual) Neutrophils # 9.5 H Neutrophils # (Manual) Lymphocytes # 1.23 L Monocytes # 1.1 H Monocytes # (Manual) Sodium Potassium Carbon Dioxide Anion Gap 15.1 H BUN 38 H Creatinine 2.49 H D Est GFR (Non-Af Amer) 22 L D AST Albumin Urine Bilirubin 1 H Urine Ictotest Positive H Ur Leukocyte Esterase 25 H Urine RBC 5-10 H Urine WBC 5-10 H Ur Epithelial Cells 5-10 H Urine Bacteria 1+ H 09/22/18 09/22/18 20:10 20:00 WBC 18.2 H RBC Hgb 10.9 L Hct 36.4 L MCH 25.2 L MCHC 29.9 L RDW 16.8 H Plt Count 516 H Immature Gran # (Auto) Neutrophils % Lymphocytes % Lymphocytes % (Manual) 13 L Monocytes % (Manual) 10 H Neutrophils # Neutrophils # (Manual) 13.7 H Lymphocytes # Monocytes # Monocytes # (Manual) 1.8 H Sodium 131 L Potassium 5.9 H D Carbon Dioxide 19.3 L Anion Gap 19.6 H BUN 44 H Creatinine 4.22 H D Est GFR (Non-Af Amer) 12 L D AST 94 H Albumin 3.0 L Urine Bilirubin Urine Ictotest Ur Leukocyte Esterase Urine RBC Urine WBC Ur Epithelial Cells Urine Bacteria - Assessments/Findings (1) Ankle fracture, right Diagnosis(s): Close treatment of this ankle fracture this time. Patient is to remain nonweightbearing on right lower extremity for 4-6 weeks. Her current cam boot that she was fitted with is too large and she needs to be fitted with the proper size cam boot. Discussed with patient if she weightbears and fracture moves could become surgical in nature. She is a smoker which can slow progression of healing. She can follow-up with us on an outpatient basis in a week to 10 days for repeat x-rays. Problem: Acute Qualifiers: Encounter type: subsequent encounter Fracture type: closed Fracture healing: with routine healing Qualified Code(s): S82.891D - Other fracture of right lower leg, subsequent encounter for closed fracture with routine healing
[2018-09-23] MEDS: GABAPENTIN 400 MG CAPSULE PO SCH (13:32)
[2018-09-23] MEDS: CITALOPRAM HYDROBROMIDE 20 MG TABLET PO SCH (13:32)
[2018-09-23] MEDS: oxyCODONE HCL/ACETAMINOPHEN 1 TAB TABLET PO PRN ×2 (13:32→19:56)
[2018-09-23] MEDS: QUEtiapine FUMARATE 25 MG TABLET PO SCH ×2 (13:33→20:01)
[2018-09-23] MEDS: LEVOTHYROXINE SODIUM 125 MCG TABLET PO SCH (13:33)
[2018-09-23] MEDS: amLODIPine BESYLATE 5 MG TABLET PO SCH (13:33)
[2018-09-23] MEDS: FAMOTIDINE 20 MG TABLET PO SCH (13:33)
[2018-09-23] MEDS: LISINOPRIL 20 MG TABLET PO SCH (13:33)
[2018-09-23] MEDS: NICOTINE 21 MG PATC TD SCH (13:36)
[2018-09-23] MEDS: ALBUTEROL SULFATE 2.5 MG/0.5 ML VIAL.NEB IH SCH ×2 (14:08→18:18)
[2018-09-23] MEDS: IBUPROFEN 800 MG TABLET PO PRN (19:57)
[2018-09-23] MEDS: SIMVASTATIN 20 MG TABLET PO SCH (20:00)
[2018-09-23] MEDS: AMITRIPTYLINE HCL 50 MG TABLET PO SCH (20:01)
[2018-09-23] MEDS ORDERED: metFORMIN HCL 500 MG TABLET PO SCH (21:00)
[2018-09-24] MEDS: oxyCODONE HCL/ACETAMINOPHEN 1 TAB TABLET PO PRN ×4 (03:12→22:09)
[2018-09-24] MEDS: ALBUTEROL SULFATE 2.5 MG/0.5 ML VIAL.NEB IH SCH ×4 (06:03→17:59)
[2018-09-24] MEDS: QUEtiapine FUMARATE 25 MG TABLET PO SCH ×2 (08:22→20:26)
[2018-09-24] MEDS: CITALOPRAM HYDROBROMIDE 20 MG TABLET PO SCH (08:22)
[2018-09-24] MEDS: GABAPENTIN 400 MG CAPSULE PO SCH (08:22)
[2018-09-24] MEDS: LEVOTHYROXINE SODIUM 125 MCG TABLET PO SCH (08:22)
[2018-09-24] MEDS: amLODIPine BESYLATE 5 MG TABLET PO SCH (08:23)
[2018-09-24] MEDS: LISINOPRIL 20 MG TABLET PO SCH (08:23)
[2018-09-24] MEDS: IBUPROFEN 800 MG TABLET PO PRN ×2 (08:35→20:26)
[2018-09-24 08:57] LABS: Hematocrit 32.2 % (37.0-47.0); Hemoglobin 9.9 gm/dL (12.5-16.0); Mean Cell Volume 82.8 fl (78-100); Mean Corpuscular Hemoglobin 25.4 pg (27-31); Mean Corpuscular Hgb Conc 30.7 g/dl (32-36); Mean Platelet Volume 9.2 fl (8-12.5); Neutrophil # 6.6 K/mm3 (1.3-6.0); Neutrophil % 67.2 % (42-75.0); Platelet Count 387 K/mm3 (150-450); Red Blood Count 3.89 M/mm3 (4.2-5.4); Red Cell Distribution Width 16.7 % (11.5-14.0); White Blood Count 9.8 K/mm3 (4.0-10.5)
[2018-09-24 09:23] LABS: Anion Gap 11.6 mmol/L (6.8-13.8); BUN/Creatinine Ratio 15.1 (9.0-21.6); Calcium * 8.9 mg/dL (7.9-10.9); Estimated Creat Clear 59.9; Potassium 4.6 mmol/L (3.4-4.6)
[2018-09-24] MEDS: NICOTINE 21 MG PATC TD SCH (13:26)
--- NOTE | 2018-09-24 19:59 | PN ---
Subjective - Date and Time Seen Date: 09/24/18 Time: 12:40 Subjective Narrative: Partial is doing much better today. Her pain is much better controlled since getting her on oxycodone. She couldn't weight show me how she could use a walker to hop on her left foot. Apparently her braces too long but the next size smaller is a pediatric size which we'll set her cervical trying to find a different brace for her. Her hydration status is improved. She still has stage IV CKD. She will be staying again overnight. We're attempting to place her into a group home home facility for rehabilitation but if that should fail then she will go home with home health. We'll decide that tomorrow. Objective - Review of Systems Generalized/Overall Review: Reports: No Symptoms Reported EENTM: Reports: No Symptoms Reported Respiratory: Reports: Cough, Shortness of Breath Cardiac: Reports: No Symptoms Reported Abdominal: Reports: No Symptoms Reported Genitourinary Symptoms: Reports: No Symptoms Reported Musculoskeletal Complaints: Reports: Other - Right ankle and foot pain due to fracture of the right posterior malleolus Neurological: Reports: No Symptoms Reported, Anxiety, Emotional Problems Skin: Reports: No Symptoms Reported Endocrine: Reports: No Symptoms Reported - Vitals Vitals: Last Vital Signs Temp 36.9 C 09/24/18 14:31 Pulse 89 09/24/18 17:59 Resp 22 H 09/24/18 17:59 BP 105/63 09/24/18 14:31 Pulse Ox 95 09/24/18 17:59 - Abnormal Lab Findings Abnormal Lab Findings: Abnormal Lab Results 09/24/18 09/24/18 Range/Units 08:55 08:55 RBC 3.89 L (4.2-5.4) M/mm3 Hgb 9.9 L (12.5-16.0) gm/dL Hct 32.2 L (37.0-47.0) % MCH 25.4 L (27-31) pg MCHC 30.7 L (32-36) g/dl RDW 16.7 H (11.5-14.0) % Immature Gran # (Auto) 0.04 H (0.000-0.0310) K/mm3 Lymphocytes % 18.2 L (20-51) % Monocytes % 11.8 H (0.0-9) % Neutrophils # 6.6 H (1.3-6.0) K/mm3 Monocytes # 1.2 H (0.0-1.0) k/mm3 Random Glucose 116 H (70-110) mg/dL - Exam Constitutional: Present: Alert, Oriented x3, Cooperative, Well developed, Well nourished, Mild distress, Obese ENT Exam: Present: normal ENT inspection, hearing grossly normal, pharynx normal, TMs normal, nasal congestion, nasal drainage Neck: Present: non-tender, full range of motion, supple, normal inspection, trachea midline Breasts: Present: Exam deferred Respiratory: Present: chest non-tender, lungs clear, normal breath sounds, expiration (prolonged). Absent: rhonchi, stridor, wheezing Cardiovascular/Chest: Present: normal peripheral pulses, regular rate, rhythm, no chest tenderness, no edema, no gallop, no JVD, no murmur, no rub. 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 She walked 8 feet twice hopping on her left foot with a walker. She will not be able to negotiate stairs. Appearance: Present: appropriate appearance, disheveled, impaired insight, impaired recent memory Eye contact: Present: cooperative, good eye contact, increased rate of speech Thoughts: Present: normal thought pattern, no apparent hallucination Assessment/Plan - Problems/Diagnosis (1) Ankle fracture, right Problem: Acute Qualifiers: Encounter type: subsequent encounter Fracture type: closed Fracture healing: with routine healing Qualified Code(s): S82.891D - Other fracture of right lower leg, subsequent encounter for closed fracture with routine healing (2) Dehydration Problem: Acute (3) Renal insufficiency Problem: Acute (4) Type II diabetes mellitus Problem: Chronic Qualifiers: Diabetes mellitus snf insulin use: with seismograph helper use Diabetes mellitus complication status: with kidney complications Diabetes mellitus complication detail: with chronic kidney disease Chronic kidney disease stage: stage 4 (severe) Qualified Code(s): E11.22 - Type 2 diabetes mellitus with diabetic chronic kidney disease; N18.4 - Chronic kidney disease, stage 4 (severe); Z79.4 - skilled nursing (current) use of insulin (5) COPD (chronic obstructive pulmonary disease) with emphysema Problem: Chronic Qualifiers: Emphysema type: panlobular Qualified Code(s): J43.1 - Panlobular emphysema (6) Morbid obesity Problem: Chronic (7) Gait instability Problem: Chronic
[2018-09-24] MEDS ORDERED: AMITRIPTYLINE HCL 25 MG TABLET ONE (20:20)
[2018-09-24] MEDS: AMITRIPTYLINE HCL 50 MG TABLET PO SCH (20:25)
[2018-09-24] MEDS: SIMVASTATIN 20 MG TABLET PO SCH (20:26)
[2018-09-25] MEDS: FAMOTIDINE 20 MG TABLET PO SCH (03:13)
[2018-09-25] MEDS: IBUPROFEN 800 MG TABLET PO PRN ×2 (03:24→11:09)
[2018-09-25] MEDS: oxyCODONE HCL/ACETAMINOPHEN 1 TAB TABLET PO PRN ×2 (05:29→12:43)
[2018-09-25] MEDS: ALBUTEROL SULFATE 2.5 MG/0.5 ML VIAL.NEB IH SCH ×4 (06:06→18:15)
[2018-09-25] MEDS: LEVOTHYROXINE SODIUM 125 MCG TABLET PO SCH (06:38)
[2018-09-25] MEDS: LISINOPRIL 20 MG TABLET PO SCH (08:56)
[2018-09-25] MEDS: CITALOPRAM HYDROBROMIDE 20 MG TABLET PO SCH (08:56)
[2018-09-25] MEDS: QUEtiapine FUMARATE 25 MG TABLET PO SCH (08:57)
[2018-09-25] MEDS: amLODIPine BESYLATE 5 MG TABLET PO SCH (08:57)
[2018-09-25] MEDS: GABAPENTIN 400 MG CAPSULE PO SCH (08:57)
[2018-09-25 09:01] LABS: Hematocrit 33.3 % (37.0-47.0); Hemoglobin 10.2 gm/dL (12.5-16.0); Mean Cell Volume 82.6 fl (78-100); Mean Corpuscular Hemoglobin 25.3 pg (27-31); Mean Corpuscular Hgb Conc 30.6 g/dl (32-36); Mean Platelet Volume 9.1 fl (8-12.5); Neutrophil # 6.2 K/mm3 (1.3-6.0); Neutrophil % 67.9 % (42-75.0); Platelet Count 405 K/mm3 (150-450); Red Blood Count 4.03 M/mm3 (4.2-5.4); Red Cell Distribution Width 16.3 % (11.5-14.0); White Blood Count 9.1 K/mm3 (4.0-10.5)
[2018-09-25 09:10] LABS: Anion Gap 13.2 mmol/L (6.8-13.8); Calcium * 9.2 mg/dL (7.9-10.9); Carbon Dioxide 28.4 mmol/L (24-32.6); Estimated Creat Clear 64.7; Potassium 4.6 mmol/L (3.4-4.6)
[2018-09-25] MEDS: NICOTINE 21 MG PATC TD SCH (13:19)
--- NOTE | 2018-09-25 17:02 | DS ---
(1) Ankle fracture, right Problem: Acute Qualifiers: Encounter type: subsequent encounter Fracture type: closed Fracture healing: with routine healing Qualified Code(s): S82.891D - Other fracture of right lower leg, subsequent encounter for closed fracture with routine healing (2) Dehydration Problem: Resolved (3) Renal insufficiency Problem: Resolved (4) Type II diabetes mellitus Problem: Chronic Qualifiers: Diabetes mellitus usp insulin use: with usp use Diabetes mellitus complication status: with kidney complications Diabetes mellitus complication detail: with chronic kidney disease Chronic kidney disease stage: stage 2 (mild) Qualified Code(s): E11.22 - Type 2 diabetes mellitus with diabetic chronic kidney disease; N18.2 - Chronic kidney disease, stage 2 (mild); 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 She represented to the emergency room because she couldn't take care of herself and her pain was uncontrolled. She had been able to eat or drink much and had become dehydrated lightheaded and weak. Evaluation in the emergency room confirmed her dehydration and renal insufficiency. Started her on oxycodone for pain which was helpful. Yesterday and today she's been able to walk with a walker hopping with her good foot but not doing weightbearing with the fractured ankle side. The foot and ankle and lower leg are in a brace. She is received about 3 L of IV fluid and full rehydrated and feeling much improved. Ideally she would be going to a rehabilitation facility but there are none closely with except her medical card and so she is going to go home. Apparently there are sick stairs for her to get into the house and she will not be able to negotiate that. Therefore she will need to be sent home per ambulance I believe. Procedures Performed: none Results and Findings: Pending Mircobiology Results 09/22/18 23:59 Blood Blood Culture - Preliminary NO GROWTH AFTER 48 HOURS 09/22/18 20:10 Blood Blood Culture - Preliminary NO GROWTH AFTER 48 HOURS Lab Pending Results 09/22/18 20:00: Sodium 131 L, Plasma Sodium 131, Potassium 5.9 H D, Chloride 98, Carbon Dioxide 19.3 L, Anion Gap 19.6 H, BUN 44 H, Creatinine 4.22 H D, Est GFR (Non-Af Amer) 12 L D, BUN/Creatinine Ratio 10.4, Random Glucose 101, Calcium 8.5, Calcium Adj for Albumin 9.0, Magnesium 2.4, Total Bilirubin 0.4, AST 94 H, ALT 32, Alkaline Phosphatase 132, Total Protein 6.6, Albumin 3.0 L 09/22/18 20:10: WBC 18.2 H, RBC 4.33, Hgb 10.9 L, Hct 36.4 L, MCV 84.1, MCH 25.2 L, MCHC 29.9 L, RDW 16.8 H, Plt Count 516 H, MPV 9.5, Neutrophils % (Manual) 75, Band Neuts % (Manual) 1, Lymphocytes % (Manual) 13 L, Monocytes % (Manual) 10 H, Immature Granulocytes 1, Neutrophils # (Manual) 13.7 H, Lymphocytes # (Manual) 2.4, Monocytes # (Manual) 1.8 H 09/22/18 22:25: Urine Color Yellow, Urine Appearance Clear, Urine pH 5.0, Ur Specific [place] >=1.030, Urine Protein Negative, Urine Glucose (UA) Negative, Urine Ketones 5, Urine Blood Negative, Urine Nitrate Negative, Urine Bilirubin 1 H, Urine Ictotest Positive H, Urine Urobilinogen Normal, Ur Leukocyte Esterase 25 H, Urine RBC 5-10 H, Urine WBC 5-10 H, Ur Epithelial Cells 5-10 H, Amorphous Sediment Trace, Urine Bacteria 1+ H, Hyaline Casts Trace, Urine Culture Comments Culture to follow 09/23/18 05:41: WBC 11.9 H D, RBC 3.94 L, Hgb 10.1 L, Hct 32.6 L, MCV 82.7, MCH 25.6 L, MCHC 31.0 L, RDW 16.7 H, Plt Count 407, MPV 9.3, Immature Gran % (Auto) 0.30, Immature Gran # (Auto) 0.04 H, Neutrophils % 79.7 H, Lymphocytes % 10.4 L, Monocytes % 8.9, Eosinophils % 0.4, Basophils % 0.3, Nucleated RBC % 0.0, Neutrophils # 9.5 H, Lymphocytes # 1.23 L, Monocytes # 1.1 H, Eosinophils # 0.1, Absolute Basophils 0.0 09/23/18 05:41: Sodium 134, Plasma Sodium 134, Potassium 4.2 D, Chloride 99, Carbon Dioxide 24.1, Anion Gap 15.1 H, BUN 38 H, Creatinine 2.49 H D, Est GFR (Non-Af Amer) 22 L D, BUN/Creatinine Ratio 15.3, Random Glucose 95, Calcium 8.2 09/24/18 08:55: WBC 9.8, RBC 3.89 L, Hgb 9.9 L, Hct 32.2 L, MCV 82.8, MCH 25.4 L, MCHC 30.7 L, RDW 16.7 H, Plt Count 387, MPV 9.2, Immature Gran % (Auto) 0.40, Immature Gran # (Auto) 0.04 H, Neutrophils % 67.2, Lymphocytes % 18.2 L, Monocytes % 11.8 H, Eosinophils % 1.9, Basophils % 0.5, Nucleated RBC % 0.0, Neutrophils # 6.6 H, Lymphocytes # 1.78, Monocytes # 1.2 H, Eosinophils # 0.2, Absolute Basophils 0.1 09/24/18 08:55: Sodium 137, Plasma Sodium 137, Potassium 4.6, Chloride 101, Carbon Dioxide 29.0, Anion Gap 11.6, BUN 14 D, Creatinine 0.93, Est GFR (Non-Af Amer) 68 D, BUN/Creatinine Ratio 15.1, Random Glucose 116 H, Calcium 8.9 09/25/18 08:55: WBC 9.1, RBC 4.03 L, Hgb 10.2 L, Hct 33.3 L, MCV 82.6, MCH 25.3 L, MCHC 30.6 L, RDW 16.3 H, Plt Count 405, MPV 9.1, Immature Gran % (Auto) 0.90 H, Immature Gran # (Auto) 0.08 H, Neutrophils % 67.9, Lymphocytes % 19.4 L, Monocytes % 9.1 H, Eosinophils % 2.0, Basophils % 0.7, Nucleated RBC % 0.0, Neutrophils # 6.2 H, Lymphocytes # 1.76, Monocytes # 0.8, Eosinophils # 0.2, Absolute Basophils 0.1 09/25/18 08:55: Sodium 138, Plasma Sodium 138, Potassium 4.6, Chloride 101, Carbon Dioxide 28.4, Anion Gap 13.2, BUN 12, Creatinine 0.86, Est GFR (Non-Af Amer) 74, BUN/Creatinine Ratio 14.0, Random Glucose 107, Calcium 9.2 Discharge Location: Home Disposition: [facility] Home Health Agency: [facility] Home Health Condition: Fair Face to Face Encounter completed per [facility] Guidelines: Yes - for physical therapy, gait training, walker training. Also assist with meds Discharge Activity: Activity as tolerated, Non-Weight bearing - on the fractured ankle Discharge Diet: Consistent carbs Referrals: Sergio Whitt DO [Primary Care Provider] - Additional Patient Instructions (free text): [facility] at discharge- nursing and physical therapy. Call report and fax discharge orders and medications. Complete Home Medications List: Complete Home Medication List: Albuterol Sulfate [Proair Hfa] 1 - 2 puff IH Q4H PRN #1 inhaler 05/17/16 amitriptyline 150 mg tablet 150 mg PO HS #30 tab 05/20/18 levothyroxine 125 mcg tablet 125 mcg PO DAILY #30 tab 05/20/18 Albuterol Sulfate [Albuterol Sulfate 2.5 MG/0.5ML] 2.5 mg INHALATION QIDRT vial.neb 06/09/18 pravastatin 40 mg tablet 40 mg PO DAILY #30 tab 06/10/18 blood sugar diagnostic strips See Dose Instructions .ROUTE .MEDSUPPLY #100 ea 06/17/18 quetiapine 50 mg tablet 50 mg PO BID #60 tab 06/17/18 famotidine 20 mg tablet 20 mg PO BID #60 tab 06/18/18 gabapentin 800 mg tablet 800 mg PO QID #120 tab 07/22/18 Ibuprofen [Motrin] 800 mg PO QID PRN 07/29/18 Lisinopril 20 mg PO DAILY 07/29/18 Acetaminophen [Tylenol] 650 mg PO Q4H PRN tab 07/30/18 Nicotine [Nicoderm] 21 mg TD Q24H #30 patch.td24 07/30/18 Priscilla Potty (Commode) 0 .ROUTE .MEDSUPPLY #1 ea 07/31/18 citalopram 40 mg tablet 40 mg PO DAILY #30 tab 08/06/18 tramadol 50 mg tablet 100 mg PO QID #240 tab 08/06/18 hydrocodone 7.5 mg-acetaminophen 325 mg tablet 1 tab PO .COMPLEX PRN #150 tab 09/01/18 knee brace See Rx Instructions .ROUTE .MEDSUPPLY #1 ea 09/01/18 metformin 500 mg tablet 500 mg PO BID #60 tab 09/01/18 Amlodipine Besylate 5 mg PO DAILY 09/23/18
[2018-09-26 01:47] VITALS: BP 126/75
== END 2018-09-25 19:48 | disposition home health service (06) | DRG 563 ==
LOC: MS 18:00 → ER 18:00 → OBSVTOIN 23:59
PROVIDERS: ADMIT Internal Medicine; ATTEND Family Medicine
CPT/HCPCS: 36415; 71010; 71045; 73562; 73610; 73700; 80048; 80053; 81001; 83735; 85025; 87040; 87086; 94640; 94664; 96361; 96365; 96372; 97110; 97116; 97162; 99283; 99285

== ENCOUNTER 2019-04-18 00:50 | Observation (INO) ==
[2019-04-18] MEDS: NORMAL SALINE 1,000 ML IV SCH ×2 (01:01→03:57)
[2019-04-18 01:08] LABS: Hematocrit 38.3 % (37.0-47.0); Hemoglobin 11.6 gm/dL (12.5-16.0); Mean Corpuscular Hemoglobin 26.4 pg (27-31); Mean Corpuscular Hgb Conc 30.3 g/dl (32-36); Mean Platelet Volume 8.6 fl (8-12.5); Neutrophil # 6.1 K/mm3 (1.3-6.0); Neutrophil % 63.1 % (42-75.0); Platelet Count 319 K/mm3 (150-450); Red Cell Distribution Width 16.6 % (11.5-14.0); White Blood Count 9.7 K/mm3 (4.0-10.5)
--- NOTE | 2019-04-18 01:25 | ERNOTE ---
Neuro HPI ER Record Date of Service: 04/18/19 Presenting Symptoms: confusion Time Seen by Provider: 04/18/19 00:56 Source: patient, EMS Exam Limitations: other - confusion, altered mental status Immunizations: IMMUNIZATION HX Immunizations Up to Date Yes History of Influenza Vaccine No Hx Pneumococcal Vaccination No Allergies/Adverse Reactions: Allergies Allergy/AdvReac Type Severity Reaction Status Date / Time No Known Drug Allergies Allergy Verified 04/14/19 13:45 Home Medications: HOME MEDICATIONS Albuterol Sulfate [Albuterol Sulfate 2.5 MG/0.5ML] 2.5 mg INHALATION QIDRT vial.neb 06/09/18 [Last Taken Unknown] Acetaminophen [Tylenol] 650 mg PO Q4H PRN tab 07/30/18 [Last Taken Unknown] famotidine 20 mg tablet 20 mg PO BID #60 tab 11/17/18 [Last Taken Unknown] gabapentin 800 mg tablet 800 mg PO QID #120 tab 12/05/18 [Last Taken Unknown] nabumetone 750 mg tablet 750 mg PO BID #60 tab 12/05/18 [Last Taken Unknown] albuterol sulfate HFA 90 mcg/actuation aerosol inhaler 1 - 2 puff IH Q4H PRN #1 inhaler 01/08/19 [Last Taken Unknown] pravastatin 40 mg tablet See Rx Instructions .ROUTE .COMPLEX #30 unspecified 03/23/19 [Last Taken Unknown] tramadol 50 mg tablet See Rx Instructions .ROUTE .COMPLEX #240 unspecified 0 03/23/19 [Last Taken Unknown] amitriptyline 150 mg tablet See Rx Instructions .ROUTE .COMPLEX #30 unspecified 03/24/19 [Last Taken Unknown] hydrocodone 7.5 mg-acetaminophen 325 mg tablet 1 tab PO Q6H PRN #120 tab 03/30/19 [Last Taken Unknown] levothyroxine 137 mcg tablet See Rx Instructions .ROUTE .COMPLEX #45 tab 03/30/19 [Last Taken Unknown] quetiapine 100 mg tablet 100 mg PO DAILY #30 tab 03/30/19 [Last Taken Unknown] amlodipine 10 mg tablet 5 mg PO DAILY #30 tab 04/06/19 [Last Taken Unknown] lisinopril 20 mg tablet 10 mg PO DAILY #30 tab 04/06/19 [Last Taken Unknown] blood sugar diagnostic strips See Dose Instructions .ROUTE .MEDSUPPLY #100 ea 04/07/19 [Last Taken Unknown] alprazolam 2 mg tablet 2 mg PO BID PRN #30 tab 04/14/19 [Last Taken Unknown] citalopram 40 mg tablet 20 mg PO DAILY #30 tab 04/14/19 [Last Taken Unknown] quetiapine 300 mg tablet 300 mg PO BID #60 tab 04/14/19 [Last Taken Unknown] - History of Present Illness Narrative: Patient is brought to the ED by EMS for confusion, altered mental status and stumbling gait. Family called EMS for the symptoms which have been worsening over the last 24 hours. Family had told EMS that this has happened before. Apparently it has happened multiple times. Typically, when this occurs the patient has become dehydrated and gone into kidney failure. Family does not arrive with the patient. EMS passes along this information. The patient herself is quite confused. She is alert person, place. She states the year is 1987. She does not know the president and does not answer many more questions. She is alert and arousable, attempts to answer questions but cannot supply much information at all. She does state that she thinks that she took her medications which does include Seroquel. She does not think she over took any medications. She denies drinking or drug use. She does admit that she does not think she drinks enough fluids. She is incontinent of urine upon arrival. Date (Duration): 04/17/19 - ongoing, worsening for 24 hours Onset: gradual onset Severity: moderate - Character of Deficits Additional Deficits: Present: impaired speech, decrease ability to stand, decrease ability to walk, weakness Prior Treament: Reports: similar symptoms before Review of Systems - Narrative Narrative: Unable for detailed review of systems due to patient's altered mental status. - Review of Systems Constitutional: Absent: fever Respiratory: Absent: shortness of breath Cardiology: Absent: chest pain Neurological: Absent: headache Medical History (Updated 04/14/19 @ 19:11 by Sergio Whitt DO) Panic disorder (Chronic) She continues to have several panic attacks without warning and occasionally awakens with them. Currently she is on Seroquel 300 mg at bedtime and 100 mg in the morning. I am going to increase the morning dose to 300 mg so that she will be on that dose twice daily. I am decreasing the citalopram to 20 mg/day because it can aggravate the manic phase of bipolar disease. Weight loss, unintentional (Chronic) IBS (irritable bowel syndrome) (Chronic) Depression (Chronic) Lumbar disc disease with radiculopathy (Chronic) Early satiety (Acute) Feels full after a few bites. Anemia (Acute) Abnormal weight loss (Chronic) ~80 lbs. Fracture of ankle, right, closed (Acute) Onset Date: ~09/22/18 Prerenal azotemia (Chronic) Type II diabetes mellitus (Chronic) Chronic low back pain with right-sided sciatica (Chronic) COPD (chronic obstructive pulmonary disease) with acute bronchitis (Chronic) Conjunctivitis due to adenovirus, both eyes (Acute) Hypothyroidism (Chronic) Onset Date: Unknown Hyperglyceridemia (Chronic) Onset Date: Unknown Hyperlipidemia due to dietary fat intake (Chronic) Onset Date: Unknown Diabetes mellitus (Chronic) Onset Date: Unknown Her last hemoglobin A1c is normal at 5.7 and is no doubt due to the significant weight loss she is had. She has gained 10 pounds since her last visit however. COPD (chronic obstructive pulmonary disease) (Chronic) Onset Date: Unknown Bipolar disorder (Chronic) Onset Date: Unknown Arthritis of knee (Chronic) Onset Date: Unknown Accidental overdose Back pain Surgical History: Surgical History (Updated 09/25/18 @ 17:02 by Sergio Whitt DO) History of total abdominal hysterectomy and bilateral salpingo-oophorectomy Onset Date: Unknown Age 28 Hx of cholecystectomy Onset Date: Unknown Age 35 Hx of tubal ligation Onset Date: Unknown Age 26 Family History: Family History (Updated 10/21/18 @ 07:59 by Boaz Wei MA) Mother , @ age 49; unknown to cause Myocardial infarction Father Medical history unknown Social History: (Last Reviewed 04/18/19 @ 01:22 by Sarina Flores MD) Social History: Marital status: household members: children current occupational status: unemployed Highest education level completed: 9th grade Service: No Tobacco: Smoking Status: Current every day smoker tobacco type: cigarettes Smoking cigarettes per day: 20.0 Smoking packs per day: 1 Alcohol: alcohol intake: former Substance Use: substance use type: does not use Dietary Habits: caffeine: Yes Type: coffee Physical Exam - Physical Exam General Appearance: Present: lethargic Head Exam: Present: normal inspection, no evidence of injury Eye Exam: Normal inspection: bilateral, PERRL: bilateral Ears, Nose, Throat: Present: normal ENT inspection Neck: Present: normal inspection, nontender Respiratory: Present: no respiratory distress, normal breath sounds Cardiovascular/Chest: Present: regular rate, rhythm, no murmur Gastrointestinal/Abdominal: Present: normal bowel sounds, nontender Extremity Exam: Present: no edema Neurological Exam: Present: no motor/sensory deficits, disoriented to time, disoriented to situation. Absent: oriented, facial droop, disoriented to person, disoriented to place Skin Exam: Present: normal color, warm/dry Lymphatic Exam: Present: no adenopathy Progress - Results and Orders Patient's Lab Results:: I have reviewed the patient's lab results. Results and Orders: Laboratory Tests 04/18/19 04/18/19 04/18/19 01:00 01:35 01:35 Urine Color Yellow Urine Protein Negative Urine Glucose (UA) Negative Urine Ketones Negative Urine Blood Negative Urine Nitrate Negative Urine Bilirubin Negative Urine Urobilinogen Normal Ur Leukocyte Esterase Negative Urine RBC None seen Urine WBC Trace H Ur Epithelial Cells None seen Amorphous Sediment Few - 1+ Urine Bacteria Trace Urine Opiates Screen Negative Barbiturate Screen Negative Ur Phencyclidine Scrn Negative Urine Amphetamine Negative U Benzodiazepines Scrn Positive H Urine Cocaine Screen Negative Urine Marijuana (THC) Negative Ethyl Alcohol Less than 3.0 Laboratory Tests 04/18/19 04/18/19 01:00 01:00 WBC 9.7 Hgb 11.6 L Hct 38.3 Plt Count 319 Sodium 143 H Potassium 3.9 Chloride 105 BUN 10 Creatinine 0.91 Est GFR (Non-Af Amer) 70 D Random Glucose 97 AST 15 ALT 19 Alkaline Phosphatase 93 - Vital Signs Patient's Vital Signs:: I have reviewed the patient's vital signs. Vital Signs: Vital Signs 04/18/19 00:56 04/18/19 01:01 Temperature 35.9 C L Pulse Rate 78 77 Respiratory Rate 20 Blood Pressure 136/82 O2 Sat by Pulse Oximetry 94 - EKG EKG #1 EKG read: Reviewed by me EKG Comments: Patient's EKG is normal sinus rhythm, no abnormalities. Rate of 77. - CT/Ultrasound CT/Ultrasound Narrative: Head CT as read by the radiologist as no acute intracranial pathology. - Progress/Reassessment Chief Complaint: Altered Mental Status Progress:: Unchanged Progress Note-Subjective: 04/18/19 02:35 Patient's work-up here is negative for findings that would explain her 24 hours of increasing confusion and mental status change. Her head CT is negative. The most likely explanation is polypharmacy and increasing confusion leading to medication mixup. Her symptoms are nonfocal, and are not suggestive of a stroke. She does not have signs of UTI. There is no intracranial bleed. Her blood alcohol is negative. I did speak with her PCP who happens to be on-call this evening. I recommended that the patient be placed in observation and given that her kidney function right now is good, I am hoping that she will start to turnaround now that her medications can be watched closely during inpatient status. Patient's vitals are stable. Departure Clinical Impression: Change in mental status Qualifiers: Altered mental status type: disorientation Qualified Code(s): R41.0 - Disorientation, unspecified - Departure Disposition: Still a patient Condition: Good
[2019-04-18 01:27] LABS: ALT 19 U/L (19-67); AST 15 U/L (0-48); Albumin * 2.8 gm/dl (3.4-5.0); Alkaline Phosphatase * 93 U/L (50-170); Bilirubin, Total 0.1 mg/dL (0.0-1.1); Blood Urea Nitrogen 10 mg/dL (3-23); Ca. Corrected For Albumin 8.9 mg/dL (8.4-10.2); Calcium * 8.3 mg/dL (7.9-10.9); Carbon Dioxide 29.9 mmol/L (24-32.6); Chloride 105 mmol/L (97-106); Glucose * 97 mg/dL (70-110); Potassium 3.9 mmol/L (3.4-4.6); Sodium 143 mmol/L (132-142)
[2019-04-18 01:37] LABS: Urine Bilirubin Negative (NEGATIVE); Urine Blood Negative /ul (NEGATIVE); Urine Ketone Negative (NEGATIVE); Urine Nitrite Negative (NEGATIVE); Urine Protein Negative (NEGATIVE); Urine Urobilinogen Normal (NORMAL)
[2019-04-18 01:47] LABS: Urine Amorphous Sediment Few - 1+ (NONE-FEW); Urine Appearance Clear (CLEAR); Urine Bacteria TRACE; Urine Color Yellow; Urine RBC None Seen /hpf (0-5); Urine WBC TRACE /hpf (0-5)
[2019-04-18 01:50] LABS: Cocaine Ur Negative (NEGATIVE); Urine Barbiturate Negative (NEGATIVE); Urine Benzodiazepines Positive (NEGATIVE); Urine Opiates Negative (NEGATIVE); Urine PCP Negative (NEGATIVE); Urine THC Negative (NEGATIVE)
[2019-04-18] MEDS ORDERED: NORMAL SALINE 1,000 ML IV PRN (02:41)
[2019-04-18] MEDS ORDERED: ACETAMINOPHEN 325 MG TABLET PO PRN (09:31)
[2019-04-18] MEDS ORDERED: ALPRAZolam 1 MG TABLET PO PRN (09:31)
[2019-04-18] MEDS ORDERED: ALBUTEROL SULFATE 2.5 MG/0.5 ML VIAL.NEB IH PRN (09:40)
[2019-04-18] MEDS ORDERED: AMITRIPTYLINE HCL SCH (09:45)
[2019-04-18] MEDS ORDERED: PRAVASTATIN SODIUM SCH (09:45)
[2019-04-18] MEDS ORDERED: FAMOTIDINE 20 MG TABLET PO SCH (09:45)
[2019-04-18] MEDS ORDERED: QUEtiapine FUMARATE 100 MG TABLET PO SCH ×2 (09:45→21:00)
--- NOTE | 2019-04-18 09:49 | DS ---
Date of Discharge:: 04/18/19 Description of Stay: Nora had been in her usual state of health last night when she awoke and was very confused and disoriented. She thought she needed to get up to go to work but she has not worked in 5 years. Her daughter at her brought to the hospital where she was evaluated in the emergency room. CT of the head was unremarkable and there is no metabolic reasons for this. Her urine drug screen was positive only for benzodiazepines and she usually takes Xanax at bedtime. She does take quetiapine 300 mg at bedtime and 100 mg in the morning. She awakened this morning in the hospital and has no recollection of the events of last night. She is fully oriented and conversant this morning. Her blood pressure is a little high 147/99. She has not had her morning blood pressure medicines yet and will have her blood pressure down with diastolic less than 90 before she goes home. Morning meds are being given at this time. Otherwise she is doing well and with out other complaint. Her disposition is improved and her prognosis is good. She will be discharged back to home. Procedures Performed: none Results and Findings: Lab Pending Results 04/18/19 01:00: WBC 9.7, RBC 4.40, Hgb 11.6 L, Hct 38.3, MCV 87.0, MCH 26.4 L, MCHC 30.3 L, RDW 16.6 H, Plt Count 319, MPV 8.6, Immature Gran % (Auto) 0.40, Immature Gran # (Auto) 0.04 H, Neutrophils % 63.1, Lymphocytes % 27.7, Monocytes % 5.9, Eosinophils % 2.3, Basophils % 0.6, Nucleated RBC % 0.0, Neutrophils # 6.1 H, Lymphocytes # 2.68, Monocytes # 0.6, Eosinophils # 0.2, Absolute Basophils 0.1 04/18/19 01:00: Sodium 143 H, Plasma Sodium 143 H, Potassium 3.9, Chloride 105, Carbon Dioxide 29.9, Anion Gap 12.0, BUN 10, Creatinine 0.91, Est GFR (Non-Af Amer) 70 D, BUN/Creatinine Ratio 11.0, Random Glucose 97, Calcium 8.3, Calcium Adj for Albumin 8.9, Total Bilirubin 0.1, AST 15, ALT 19, Alkaline Phosphatase 93, Total Protein 6.0 L, Albumin 2.8 L, Ethyl Alcohol Less than 3.0 04/18/19 01:35: Urine Color Yellow, Urine Appearance Clear, Urine pH 7.0, Ur Specific [place] 1.010, Urine Protein Negative, Urine Glucose (UA) Negative, Urine Ketones Negative, Urine Blood Negative, Urine Nitrate Negative, Urine Bilirubin Negative, Urine Urobilinogen Normal, Ur Leukocyte Esterase Negative, Urine RBC None seen, Urine WBC Trace H, Ur Epithelial Cells None seen, Amorphous Sediment Few - 1+, Urine Bacteria Trace, Urine Culture Comments Culture to follow 04/18/19 01:35: Urine Opiates Screen Negative, Barbiturate Screen Negative, Ur Phencyclidine Scrn Negative, Urine Amphetamine Negative, U Benzodiazepines Scrn Positive H, Urine Cocaine Screen Negative, Urine Marijuana (THC) Negative Discharge Location: Home Disposition: Home self-care Condition: Good Face to Face Encounter completed per [facility] Guidelines: No Discharge Activity: Activity as tolerated Discharge Diet: Consistent carbs Referrals: Sergio Whitt DO [Primary Care Provider] - Additional Patient Instructions (free text): See me in the office next Complete Home Medications List: Complete Home Medication List: Albuterol Sulfate [Albuterol Sulfate 2.5 MG/0.5ML] 2.5 mg INHALATION QIDRT vial.neb 06/09/18 Acetaminophen [Tylenol] 650 mg PO Q4H PRN tab 07/30/18 famotidine 20 mg tablet 20 mg PO BID #60 tab 11/17/18 gabapentin 800 mg tablet 800 mg PO QID #120 tab 12/05/18 nabumetone 750 mg tablet 750 mg PO BID #60 tab 12/05/18 albuterol sulfate HFA 90 mcg/actuation aerosol inhaler 1 - 2 puff IH Q4H PRN #1 inhaler 01/08/19 pravastatin 40 mg tablet See Rx Instructions .ROUTE .COMPLEX #30 unspecified 03/23/19 tramadol 50 mg tablet See Rx Instructions .ROUTE .COMPLEX #240 unspecified 03/23/19 amitriptyline 150 mg tablet See Rx Instructions .ROUTE .COMPLEX #30 unspecified 03/24/19 hydrocodone 7.5 mg-acetaminophen 325 mg tablet 1 tab PO Q6H PRN #120 tab 03/30/19 levothyroxine 137 mcg tablet See Rx Instructions .ROUTE .COMPLEX #45 tab 03/30/19 quetiapine 100 mg tablet 100 mg PO DAILY #30 tab 03/30/19 amlodipine 10 mg tablet 5 mg PO DAILY #30 tab 04/06/19 lisinopril 20 mg tablet 10 mg PO DAILY #30 tab 04/06/19 blood sugar diagnostic strips See Dose Instructions .ROUTE .MEDSUPPLY #100 ea 04/07/19 alprazolam 2 mg tablet 2 mg PO BID PRN #30 tab 04/14/19 citalopram 40 mg tablet 20 mg PO DAILY #30 tab 04/14/19 quetiapine 300 mg tablet 300 mg PO BID #60 tab 04/14/19
[2019-04-18] MEDS ORDERED: traMADol HCL 50 MG TABLET PO SCH (10:00)
[2019-04-18] MEDS ORDERED: CITALOPRAM HYDROBROMIDE 20 MG TABLET PO SCH (10:00)
[2019-04-18] MEDS ORDERED: GABAPENTIN 400 MG CAPSULE PO SCH (10:00)
[2019-04-18] MEDS ORDERED: LISINOPRIL 10 MG TABLET PO SCH (10:00)
[2019-04-18] MEDS ORDERED: LEVOTHYROXINE SODIUM 137 MCG TABLET PO SCH (10:00)
[2019-04-18] MEDS ORDERED: NABUMETONE 500 MG TABLET PO SCH (10:00)
[2019-04-18] MEDS ORDERED: ALBUTEROL SULFATE 2.5 MG/0.5 ML VIAL.NEB IH SCH (11:00)
[2019-04-18] MEDS ORDERED: amLODIPine BESYLATE 5 MG TABLET PO SCH (11:00)
[2019-04-18] MEDS ORDERED: amLODIPine BESYLATE 5 MG TABLET PO ONE (12:47)
[2019-04-18 14:00] VITALS: BP 139/93
--- NOTE | 2019-04-20 19:40 | HP ---
Chief Complaint - Chief Complaint Date of Service: 04/18/19 Time of Service: 08:15 Chief Complaint: Psychotic break History of Present Illness: Nora hernandez is a 48-year-old female patient well-known to me who is her usual state of health at home. She was awakened by her daughter and Nora said she was late and that she had a hurry to get ready for work but she has not worked in 5 years. Her confusion did not clear so she was brought to the hospital where she was evaluated and still was disoriented. Her controlled substances are controlled by the daughter and so I am confident that she is not getting any additional pain medication or anxiety medication. She has a long- standing history of mental disease including bipolar 1 depression. She has had other transient breaks from reality in the past but they were thought to have been medication overdose related. She slept well from the time of admission until I saw her in the morning. I came in and she was fully alert and oriented and had eaten breakfast. Charles she has a history of diabetes. She is lost about 130 pounds but still has a BMI of 44.5. Still her last hemoglobin A1c was 5.7 and she is not on any diabetic medication now. Her blood sugars have been c hecked during the time of her psychosis and they were not low. She will be monitored until after lunch and then I will discharge her to home into her daughter's care. Medical History (Updated 04/18/19 @ 09:48 by Sergio Whitt DO) Panic disorder (Chronic) She continues to have several panic attacks without warning and occasionally awakens with them. Currently she is on Seroquel 300 mg at bedtime and 100 mg in the morning. I am going to increase the morning dose to 300 mg so that she will be on that dose twice daily. I am decreasing the citalopram to 20 mg/day because it can aggravate the manic phase of bipolar disease. Weight loss, unintentional (Chronic) IBS (irritable bowel syndrome) (Chronic) Depression (Chronic) Lumbar disc disease with radiculopathy (Chronic) Early satiety (Acute) Feels full after a few bites. Anemia (Acute) Abnormal weight loss (Chronic) ~80 lbs. Fracture of ankle, right, closed (Acute) Onset Date: ~09/22/18 Prerenal azotemia (Chronic) Type II diabetes mellitus (Chronic) Chronic low back pain with right-sided sciatica (Chronic) COPD (chronic obstructive pulmonary disease) with acute bronchitis (Chronic) Conjunctivitis due to adenovirus, both eyes (Acute) Hypothyroidism (Chronic) Onset Date: Unknown Hyperglyceridemia (Chronic) Onset Date: Unknown Hyperlipidemia due to dietary fat intake (Chronic) Onset Date: Unknown Diabetes mellitus (Chronic) Onset Date: Unknown Her last hemoglobin A1c is normal at 5.7 and is no doubt due to the significant weight loss she is had. She has gained 10 pounds since her last visit however. COPD (chronic obstructive pulmonary disease) (Chronic) Onset Date: Unknown Bipolar disorder (Chronic) Onset Date: Unknown Arthritis of knee (Chronic) Onset Date: Unknown Accidental overdose Back pain Surgical History: Surgical History (Updated 09/25/18 @ 17:02 by Sergio Whitt DO) History of total abdominal hysterectomy and bilateral salpingo-oophorectomy Onset Date: Unknown Age 28 Hx of cholecystectomy Onset Date: Unknown Age 35 Hx of tubal ligation Onset Date: Unknown Age 26 Family History: Family History (Updated 10/21/18 @ 07:59 by Boaz Wei MA) Mother , @ age 49; unknown to cause Myocardial infarction Father Medical history unknown Social History: (Last Reviewed 04/18/19 @ 08:12 by Orly Sales RN) Social History: Marital status: household members: children current occupational status: unemployed Highest education level completed: 9th grade Service: No Tobacco: Smoking Status: Current every day smoker tobacco type: cigarettes Smoking cigarettes per day: 20.0 Smoking packs per day: 1 Alcohol: alcohol intake: former Substance Use: substance use type: does not use Dietary Habits: caffeine: Yes Type: coffee Review Of Systems (GEN) - Review of Systems EENTM: Present: No Symptoms Reported Respiratory: Present: No Symptoms Reported Cardiac: Present: No Symptoms Reported Abdominal: Present: No Symptoms Reported Genitourinary: Present: No Symptoms Reported Musculoskeletal: Present: No Symptoms Reported Neurological: Present: Anxiety, Emotional Problems, Other - Transient psychosis Skin: Present: No Symptoms Reported Immunizations: IMMUNIZATION HX Immunizations Up to Date Yes History of Influenza Vaccine No Hx Pneumococcal Vaccination No Allergies/Adverse Reactions: Allergies Allergy/AdvReac Type Severity Reaction Status Date / Time No Known Drug Allergies Allergy Verified 04/14/19 13:45 Home Medications: HOME MEDICATIONS Albuterol Sulfate [Albuterol Sulfate 2.5 MG/0.5ML] 2.5 mg INHALATION QIDRT vial.neb 06/09/18 [Last Taken Unknown] Acetaminophen [Tylenol] 650 mg PO Q4H PRN tab 07/30/18 [Last Taken Unknown] famotidine 20 mg tablet 20 mg PO BID #60 tab 11/17/18 [Last Taken Unknown] gabapentin 800 mg tablet 800 mg PO QID #120 tab 12/05/18 [Last Taken Unknown] albuterol sulfate HFA 90 mcg/actuation aerosol inhaler 1 - 2 puff IH Q4H PRN #1 inhaler 01/08/19 [Last Taken Unknown] pravastatin 40 mg tablet See Rx Instructions .ROUTE .COMPLEX #30 unspecified 03/23/19 [Last Taken Unknown] tramadol 50 mg tablet See Rx Instructions .ROUTE .COMPLEX #240 unspecified 03/23/19 [Last Taken Unknown] amitriptyline 150 mg tablet See Rx Instructions .ROUTE .COMPLEX #30 unspecified 03/24/19 [Last Taken Unknown] hydrocodone 7.5 mg-acetaminophen 325 mg tablet 1 tab PO Q6H PRN #120 tab 03/30/19 [Last Taken Unknown] levothyroxine 137 mcg tablet See Rx Instructions .ROUTE .COMPLEX #45 tab 03/30/19 [Last Taken Unknown] amlodipine 10 mg tablet 5 mg PO DAILY #30 tab 04/06/19 [Last Taken Unknown] lisinopril 20 mg tablet 10 mg PO DAILY #30 tab 04/06/19 [Last Taken Unknown] blood sugar diagnostic strips See Dose Instructions .ROUTE .MEDSUPPLY #100 ea 04/07/19 [Last Taken Unknown] alprazolam 2 mg tablet 2 mg PO BID PRN #30 tab 04/14/19 [Last Taken Unknown] citalopram 40 mg tablet 20 mg PO DAILY #30 tab 04/14/19 [Last Taken Unknown] quetiapine 300 mg tablet 300 mg PO BID #60 tab 04/14/19 [Last Taken Unknown] Exam - Exam Vital Signs: Vital Signs - Last Taken Temp 36.4 C 04/18/19 13:30 Pulse 92 04/18/19 13:30 Resp 24 H 04/18/19 13:30 BP 139/93 H 04/18/19 13:30 Pulse Ox 94 04/18/19 13:30 Constitutional: Present: Alert, Oriented x3, Cooperative, Well developed, Well nourished, No distress, Morbidly obese ENT Exam: Present: normal ENT inspection, hearing grossly normal, pharynx normal, TMs normal Eye Exam: bilateral eye: normal inspection, PERRL, EOMI Neck: Present: non-tender, full range of motion, supple, normal inspection Back Exam: Present: normal inspection, no CVA tenderness, no vertebral tenderness Breasts: Present: Exam deferred Respiratory: Present: chest non-tender Cardiovascular/Chest: Present: normal peripheral pulses Peripheral Pulses: carotid (R): 2+, carotid (L): 2+, radial (R): 2+, radial (L): 2+ Abdomen: Present: Normal bowel sounds, soft, nontender, nondistended, no rebound tenderness, no hepatospenomegaly, no masses /Rectal: Present: Exam deferred Extremity: Present: normal range of motion, non-tender, normal inspection, no pedal edema, no calf tenderness, normal capillary refill Skin Exam: Present: normal color, warm/dry, no cyanosis, cool/dry Lymphatic: Present: no adenopathy 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 nml as tested, normal cerebellar test, no motor/sensory deficits, alert, oriented x 3, other - Anxious Appearance: Present: appropriate appearance, appropriate insight, neat, impaired recent memory - Is amnestic about the events while she was in her transient psychosis Eye contact: Present: cooperative, good eye contact, normal speech, avoids eye contact Thoughts: Present: flight of ideas, grandiose Diagnostic Studies: Microbiology 04/18/19 01:30 Urine Culture - Final Urine,Catheterized No Growth Laboratory Results WBC 9.7 K/mm3 (4.0-10.5) 04/18/19 01:00 RBC 4.40 M/mm3 (4.2-5.4) 04/18/19 01:00 Hgb 11.6 gm/dL (12.5-16.0) L 04/18/19 01:00 Hct 38.3 % (37.0-47.0) 04/18/19 01:00 MCV 87.0 fl (78-100) 04/18/19 01:00 MCH 26.4 pg (27-31) L 04/18/19 01:00 MCHC 30.3 g/dl (32-36) L 04/18/19 01:00 RDW 16.6 % (11.5-14.0) H 04/18/19 01:00 Plt Count 319 K/mm3 (150-450) 04/18/19 01:00 MPV 8.6 fl (8-12.5) 04/18/19 01:00 Immature Gran % (Auto) 0.40 % (0.001-0.429) 04/18/19 01:00 Immature Gran # (Auto) 0.04 K/mm3 (0.000-0.0310) H 04/18/19 01:00 63.1 % (42-75.0) 04/18/19 01:00 27.7 % (20-51) 04/18/19 01:00 5.9 % (0.0-9) 04/18/19 01:00 2.3 % (0.0-3.0) 04/18/19 01:00 0.6 % (0.0-1.0) 04/18/19 01:00 Nucleated RBC % 0.0 k/mm3 (0-1) 04/18/19 01:00 6.1 K/mm3 (1.3-6.0) H 04/18/19 01:00 2.68 k/mm3 (1.5-3.5) 04/18/19 01:00 0.6 k/mm3 (0.0-1.0) 04/18/19 01:00 0.2 k/mm3 (0.0-0.7) 04/18/19 01:00 Absolute Basophils 0.1 k/mm3 (0.0-0.1) 04/18/19 01:00 Sodium 143 mmol/L (132-142) H 04/18/19 01:00 143 mmol/L (130-142) H 04/18/19 01:00 Potassium 3.9 mmol/L (3.4-4.6) 04/18/19 01:00 Chloride 105 mmol/L (97-106) 04/18/19 01:00 Carbon Dioxide 29.9 mmol/L (24-32.6) 04/18/19 01:00 12.0 mmol/L (6.8-13.8) 04/18/19 01:00 BUN 10 mg/dL (3-23) 04/18/19 01:00 0.91 mg/dL (0.4-1.4) 04/18/19 01:00 Est GFR (Non-Af Amer) 70 mL/min (60-130) D 04/18/19 01:00 11.0 (9.0-21.6) 04/18/19 01:00 97 mg/dL (70-110) 04/18/19 01:00 Calcium 8.3 mg/dL (7.9-10.9) 04/18/19 01:00 Calcium Adj for Albumin 8.9 mg/dL (8.4-10.2) 04/18/19 01:00 0.1 mg/dL (0.0-1.1) 04/18/19 01:00 AST 15 U/L (0-48) 04/18/19 01:00 ALT 19 U/L (19-67) 04/18/19 01:00 93 U/L (50-170) 04/18/19 01:00 6.0 gm/dL (6.2-8.2) L 04/18/19 01:00 2.8 gm/dl (3.4-5.0) L 04/18/19 01:00 Yellow 04/18/19 01:35 Clear (CLEAR) 04/18/19 01:35 7.0 pH (5.0-7.0) 04/18/19 01:35 Ur Specific [place] 1.010 SP.GR. (1.005-1.010) 04/18/19 01:35 Negative mg/dL (NEGATIVE) 04/18/19 01:35 Negative mg/dL (NEGATIVE) 04/18/19 01:35 Negative mg/dL (NEGATIVE) 04/18/19 01:35 Negative /ul (NEGATIVE) 04/18/19 01:35 Negative (NEGATIVE) 04/18/19 01:35 Negative mg/dl (NEGATIVE) 04/18/19 01:35 Normal EU/dl (NORMAL) 04/18/19 01:35 Ur Leukocyte Esterase Negative /ul (NEGATIVE) 04/18/19 01:35 None seen /hpf (0-5) 04/18/19 01:35 Trace /hpf (0-5) H 04/18/19 01:35 Ur Epithelial Cells None seen /hpf (0-5) 04/18/19 01:35 Amorphous Sediment Few - 1+ (NONE-FEW) 04/18/19 01:35 Trace (NONE) 04/18/19 01:35 Culture to follow 04/18/19 01:35 Negative (NEGATIVE) 04/18/19 01:35 Negative (NEGATIVE) 04/18/19 01:35 Ur Phencyclidine Scrn Negative (NEGATIVE) 04/18/19 01:35 Urine Amphetamine Negative (NEGATIVE) 04/18/19 01:35 U Benzodiazepines Scrn Positive (NEGATIVE) H 04/18/19 01:35 Negative (NEGATIVE) 04/18/19 01:35 Negative (NEGATIVE) 04/18/19 01:35 Ethyl Alcohol Less than 3.0 mg/dL (0.0-10.0) 04/18/19 01:00 Assessment/Plan - Narrative Narrative: 1. Continue observation until after lunch and then she can be discharged 2. I do not anticipate any changes in her medications that she is been doing very well 3. I discussed with the daughter that I had no idea why this happened but unless it becomes a recurring theme that I do not think any further work-up is required.
== END 2019-04-18 13:35 | disposition home or self-care (01) ==
LOC: MS 00:50 → ER 00:50 → MS 02:52
PROVIDERS: ADMIT Family Medicine; ATTEND Family Medicine
CPT/HCPCS: 36415; 70450; 80053; 80307; 80320; 81001; 85025; 87086; 93005; 96360; 96361; 99285; G0378; G0481

== ENCOUNTER 2019-12-23 11:27 | Inpatient (IN) ==
[2019-12-23 11:50] LABS: Hematocrit 39.7 % (37.0-47.0); Hemoglobin 12.4 gm/dL (12.5-16.0); Mean Cell Volume 88.6 fl (78-100); Mean Corpuscular Hemoglobin 27.7 pg (27-31); Mean Corpuscular Hgb Conc 31.2 g/dl (32-36); Mean Platelet Volume 9.1 fl (8-12.5); Neutrophil # 5.2 K/mm3 (1.3-6.0); Neutrophil % 60.8 % (42-75.0); Platelet Count 358 K/mm3 (150-450); Red Blood Count 4.48 M/mm3 (4.2-5.4); Red Cell Distribution Width 15.3 % (11.5-14.0); White Blood Count 8.5 K/mm3 (4.0-10.5)
[2019-12-23] MEDS: PROPOFOL 1,000 MG/100 ML PIGGYBACK IV PRN ×4 (11:56→22:50)
[2019-12-23 12:04] LABS: ALT 20 U/L (19-67); AST 10 U/L (0-48); Albumin * 3.3 gm/dl (3.4-5.0); Alkaline Phosphatase * 113 U/L (50-170); Anion Gap 12.3 mmol/L (6.8-13.8); BUN/Creatinine Ratio 18.9 (9.0-21.6); Bilirubin, Total 0.1 mg/dL (0.0-1.1); Blood Urea Nitrogen 17 mg/dL (3-23); Ca. Corrected For Albumin 9.4 mg/dL (8.4-10.2); Calcium * 9.2 mg/dL (7.9-10.9); Carbon Dioxide 31.7 mmol/L (24-32.6); Chloride 106 mmol/L (97-106); Glucose * 99 mg/dL (70-110); Salicylate 4.7 mg/dL (2.8-20.0); Sodium 146 mmol/L (132-142); Total Protein 6.9 gm/dL (6.2-8.2)
--- NOTE | 2019-12-23 12:22 | ERNOTE ---
<Matthew Terrell - Last Filed: 12/23/19 13:57> Medical Problem HPI - General Chief Complaint: Drug Overdose Time Seen by Provider: 12/23/19 12:11 - Immun/Allergies/Home Medications Immunizations: IMMUNIZATION HX Immunizations Up to Date Yes History of Influenza Vaccine Yes Hx Pneumococcal Vaccination No Allergies/Adverse Reactions: Allergies acetaminophen [From Tylenol-Codeine #3] Allergy (Intermediate, Verified 12/23/19 14:41) allergy to medication per dr simpson, do not rx codeine [From Tylenol-Codeine #3] Allergy (Intermediate, Verified 12/23/19 14:41) allergy to medication per dr simpson, do not rx Home Medications: HOME MEDICATIONS blood sugar diagnostic See Dose Instructions .ROUTE .MEDSUPPLY #100 ea 04/07/19 [Last Taken Unknown] albuterol sulfate 90 mcg/actuation aerosol inhaler 1 - 2 puff IH Q4H PRN #1 inhaler 06/23/19 [Last Taken Unknown] citalopram 40 mg tablet 40 mg PO DAILY #30 tab 08/04/19 [Last Taken Unknown] Ibuprofen 800 mg PO TID PRN 10/13/19 [Last Taken Unknown] QUEtiapine FUMARATE [Seroquel] 400 mg PO BID 10/13/19 [Last Taken Unknown] alprazolam 1 mg tablet 1 mg PO TID PRN #90 tab 11/10/19 [Last Taken Unknown] mirtazapine 30 mg tablet 30 mg PO DAILY #30 tab 11/16/19 [Last Taken Unknown] cyclobenzaprine 10 mg tablet 10 mg PO TID #30 tab 12/04/19 [Last Taken Unknown] famotidine 20 mg tablet 20 mg PO DAILY #30 tab 12/04/19 [Last Taken Unknown] hydrocodone 5 mg-acetaminophen 325 mg tablet 1 tab PO Q8H PRN #45 tab 12/11/19 [Last Taken Unknown] tramadol 50 mg tablet 100 mg PO QID #240 tab 12/14/19 [Last Taken Unknown] Albuterol Sulfate [Proair Hfa] 1 - 2 puff INHALATION Q4H PRN 12/23/19 [Last Taken Unknown] Amitriptyline HCl 150 mg PO HS 12/23/19 [Last Taken Unknown] Amlodipine Besylate 5 mg PO QAM 12/23/19 [Last Taken Unknown] Gabapentin 800 mg PO TID 12/23/19 [Last Taken Unknown] Levothyroxine Sodium [Synthroid] 1 tab PO QAM 12/23/19 [Last Taken Unknown] Lisinopril 10 mg PO QAM 12/23/19 [Last Taken Unknown] Pravastatin Sodium 40 mg PO HS 12/23/19 [Last Taken Unknown] Medical History (Last Reviewed 12/23/19 @ 12:13 by Lan Santamaria MD) Emotional crisis, acute reaction to stress (Acute) Onset Date: Unknown Current every day smoker (Chronic) Onset Date: Unknown Pneumonia (Acute) Onset Date: Unknown Schizophrenia, chronic condition (Chronic) Onset Date: Unknown I recently increased her Quetiapine to 400mg @ hs and 200mg in the morning. This has quieted her auditory hallucinations. She is feeling much better mentally. Opioid dependence (Chronic) Onset Date: Unknown Hallucinations improved when she restarted Hydrocodone because of her rib fracture. Psychosis (Chronic) Onset Date: Unknown Hypomania (Chronic) Onset Date: Unknown She has bipolar disease and cycles between her cesar and hypomania. She appears to be in her hypomanic phase at this time and feels more depressed. Fecal incontinence (Acute) Onset Date: Unknown Occurs with sleeping and also having urinary incontinence. Generalized anxiety disorder (Chronic) Onset Date: Unknown Bipolar disorder (Chronic) Onset Date: Unknown Panic disorder (Chronic) Onset Date: Unknown She continues to have several panic attacks without warning and occasionally awakens with them. Currently she is on Seroquel 300 mg at bedtime and 100 mg in the morning. I am going to increase the morning dose to 300 mg so that she will be on that dose twice daily. I am decreasing the citalopram to 20 mg/day because it can aggravate the manic phase of bipolar disease. Weight loss, unintentional (Chronic) Onset Date: Unknown IBS (irritable bowel syndrome) (Chronic) Onset Date: Unknown Depression (Chronic) Onset Date: Unknown Lumbar disc disease with radiculopathy (Chronic) Onset Date: Unknown Early satiety (Acute) Onset Date: Unknown Feels full after a few bites. Anemia (Acute) Onset Date: Unknown Abnormal weight loss (Chronic) Onset Date: Unknown ~80 lbs. Fracture of ankle, right, closed (Acute) Onset Date: ~09/22/18 Dehydration (Resolved) Onset Date: Unknown Renal insufficiency (Resolved) Onset Date: Unknown Ankle fracture, right (Acute) Onset Date: Unknown Pyelonephritis (Acute) Onset Date: Unknown Altered mental status (Acute) Onset Date: Unknown Dehydration (Acute) Onset Date: Unknown Prerenal azotemia (Chronic) Onset Date: Unknown Type II diabetes mellitus (Chronic) Onset Date: Unknown Chronic low back pain with right-sided sciatica (Chronic) Onset Date: Unknown COPD exacerbation (Acute) Onset Date: Unknown COPD (chronic obstructive pulmonary disease) with acute bronchitis (Chronic) Onset Date: Unknown Abdominal pain (Resolved) Onset Date: Unknown COPD (chronic obstructive pulmonary disease) with emphysema (Chronic) Onset Date: Unknown Pleurisy (Acute) Onset Date: Unknown Hypertension (Chronic) Onset Date: Unknown Chronic pain (Chronic) Onset Date: Unknown Sciatic nerve pain (Acute) Onset Date: Unknown Back pain (Chronic) Onset Date: Unknown Piriformis syndrome (Acute) Onset Date: Unknown Sciatica (Chronic) Onset Date: Unknown Left knee injury (Acute) Onset Date: Unknown Atypical chest pain (Acute) Onset Date: Unknown Right lumbar radiculitis (Chronic) Onset Date: Unknown Has had sciatica before but never this bad. Can't get comfortable. Cough (Acute) Onset Date: Unknown Fever (Acute) Onset Date: Unknown Pneumonia (Acute) Onset Date: Unknown Morbid obesity (Chronic) Onset Date: Unknown Asthma (Chronic) Onset Date: Unknown Delirium (Resolved) Onset Date: Unknown Leukocytosis (Resolved) Onset Date: Unknown Gait instability (Chronic) Onset Date: Unknown Altered mental status (Resolved) Onset Date: Unknown Conjunctivitis due to adenovirus, both eyes (Resolved) Onset Date: Unknown Hypothyroidism (Chronic) Onset Date: Unknown Hyperglyceridemia (Chronic) Onset Date: Unknown Hyperlipidemia due to dietary fat intake (Chronic) Onset Date: Unknown Diabetes mellitus (Chronic) Onset Date: Unknown Her last hemoglobin A1c is normal at 5.7 and is no doubt due to the sig nificant weight loss she is had. She has gained 10 pounds since her last visit however. COPD (chronic obstructive pulmonary disease) (Chronic) Onset Date: Unknown Bipolar disorder (Chronic) Onset Date: Unknown Arthritis of knee (Chronic) Onset Date: Unknown Accidental overdose Onset Date: Unknown Back pain Onset Date: Unknown Rib fracture (Inactive) Surgical History: Surgical History (Last Reviewed 12/23/19 @ 12:13 by Lan Santamaria MD) History of total abdominal hysterectomy and bilateral salpingo-oophorectomy Onset Date: Unknown Age 28 Hx of cholecystectomy Onset Date: Unknown Age 35 Hx of tubal ligation Onset Date: Unknown Age 26 Family History: Family History (Last Reviewed 12/23/19 @ 12:13 by Lan Santamaria MD) Mother , @ age 49; unknown to cause Myocardial infarction Father Medical history unknown Social History: (Last Reviewed 12/23/19 @ 12:14 by Lan Santamaria MD) Social History: custodial: No Marital status: household members: children current occupational status: unemployed Highest education level completed: 9th grade Service: No Tobacco: Smoking Status: Current every day smoker tobacco type: cigarettes Smoking cigarettes per day: 20.0 Smoking packs per day: 1 second hand exposure: Yes Alcohol: alcohol intake: former Substance Use: substance use type: does not use Dietary Habits: caffeine: Yes Type: coffee Exercise: Physical activity functional status: normal ROM and activity Progress - Vital Signs Vital Signs: Vital Signs 12/23/19 11:28 12/23/19 11:31 12/23/19 12:10 Pulse Rate 94 114 H 106 H Respiratory Rate 21 H 16 Blood Pressure 126/88 O2 Sat by Pulse Oximetry 95 100 95 12/23/19 12:19 12/23/19 12:23 Pulse Rate 102 H 114 H Respiratory Rate 12 17 Blood Pressure 126/88 183/112 H O2 Sat by Pulse Oximetry 98 90 L - Progress/Reassessment Chief Complaint: Drug Overdose Procedures Date and Time: 12/23/19 11:50 Intubation Method: endotrachial with venti Tube Size (cm): 7.0 Medications: Succinylcholine, Other - Propofol Breath Sounds after Intubation: equal Intubation Complications: no complications Post Intubation Xray: Yes Complications: Pt kriss procedure well Progress/Xray Impression: History: Patient unresponsive. Intubated. NG tube placement. Immediate Post Procedure Note: Patient was given socks and propofol when she was adequately sedated. Using a glide scope the vocal cords were visualized, 7.0 endotracheal tube was inserted until it was visualized to be through the vocal cords, stylette was removed. Approximately 10 cc of air were used to inflate the ET tube. Breath sounds were heard bilaterally. Chest x-ray will be taken to verify tube placement. Patient tolerated procedure well without complication. Vitals stable post procedure. Plan - Plan Plan: Transfer to SCU, discussed with Dr. Simpson patient's PCP about continued care as well as vent consultation with Dr. Vargas. Spoke directly with both physicians agreed to continue managed care. Patient will be transferred to SCU unit for further care. She will continue on the ventilator recommendations per admitting physician. Departure Clinical Impression: Overdose - Departure Disposition: Still a patient Condition: Stable <Lan Santamaria - Last Filed: 12/24/19 09:25> Medical Problem HPI - Narrative Date of Service: 12/23/19 - General Source: EMS Exam Limitations: intoxication - Immun/Allergies/Home Medications Immunizations: IMMUNIZATION HX Immunizations Up to Date Yes History of Influenza Vaccine Yes Hx Pneumococcal Vaccination No - History of Present History Narrative: This patient is a 49-year-old female who arrived by ambulance with suspected overdose. She apparently was at her baseline this morning. She was found by family members unresponsive and there were empty bottles of amitriptyline and hydrocodone. The paramedics indicated that she was cyanotic and hypoventilating. She was given 2 mg of Narcan at the scene and then 2 more in the ambulance. She is moving and agitated at this time. She has confused speech. She falls asleep quickly. Review of Systems - Narrative Narrative: Unobtainable Medical History (Last Reviewed 12/23/19 @ 12:13 by Lan Santamaria MD) Emotional crisis, acute reaction to stress (Acute) Onset Date: Unknown Current every day smoker (Chronic) Onset Date: Unknown Pneumonia (Acute) Onset Date: Unknown Schizophrenia, chronic condition (Chronic) Onset Date: Unknown I recently increased her Quetiapine to 400mg @ hs and 200mg in the morning. This has quieted her auditory hallucinations. She is feeling much better mentally. Opioid dependence (Chronic) Onset Date: Unknown Hallucinations improved when she restarted Hydrocodone because of her rib fracture. Psychosis (Chronic) Onset Date: Unknown Hypomania (Chronic) Onset Date: Unknown She has bipolar disease and cycles between her cesar and hypomania. She appears to be in her hypomanic phase at this time and feels more depressed. Fecal incontinence (Acute) Onset Date: Unknown Occurs with sleeping and also having urinary incontinence. Generalized anxiety disorder (Chronic) Onset Date: Unknown Bipolar disorder (Chronic) Onset Date: Unknown Panic disorder (Chronic) Onset Date: Unknown She continues to have several panic attacks without warning and occasionally awakens with them. Currently she is on Seroquel 300 mg at bedtime and 100 mg in the morning. I am going to increase the morning dose to 300 mg so that she will be on that dose twice daily. I am decreasing the citalopram to 20 mg/day because it can aggravate the manic phase of bipolar disease. Weight loss, unintentional (Chronic) Onset Date: Unknown IBS (irritable bowel syndrome) (Chronic) Onset Date: Unknown Depression (Chronic) Onset Date: Unknown Lumbar disc disease with radiculopathy (Chronic) Onset Date: Unknown Early satiety (Acute) Onset Date: Unknown Feels full after a few bites. Anemia (Acute) Onset Date: Unknown Abnormal weight loss (Chronic) Onset Date: Unknown ~80 lbs. Fracture of ankle, right, closed (Acute) Onset Date: ~09/22/18 Dehydration (Resolved) Onset Date: Unknown Renal insufficiency (Resolved) Onset Date: Unknown Ankle fracture, right (Acute) Onset Date: Unknown Pyelonephritis (Acute) Onset Date: Unknown Altered mental status (Acute) Onset Date: Unknown Dehydration (Acute) Onset Date: Unknown Prerenal azotemia (Chronic) Onset Date: Unknown Type II diabetes mellitus (Chronic) Onset Date: Unknown Chronic low back pain with right-sided sciatica (Chronic) Onset Date: Unknown COPD exacerbation (Acute) Onset Date: Unknown COPD (chronic obstructive pulmonary disease) with acute bronchitis (Chronic) Onset Date: Unknown Abdominal pain (Resolved) Onset Date: Unknown COPD (chronic obstructive pulmonary disease) with emphysema (Chronic) Onset Date: Unknown Pleurisy (Acute) Onset Date: Unknown Hypertension (Chronic) Onset Date: Unknown Chronic pain (Chronic) Onset Date: Unknown Sciatic nerve pain (Acute) Onset Date: Unknown Back pain (Chronic) Onset Date: Unknown Piriformis syndrome (Acute) Onset Date: Unknown Sciatica (Chronic) Onset Date: Unknown Left knee injury (Acute) Onset Date: Unknown Atypical chest pain (Acute) Onset Date: Unknown Right lumbar radiculitis (Chronic) Onset Date: Unknown Has had sciatica before but never this bad. Can't get comfortable. Cough (Acute) Onset Date: Unknown Fever (Acute) Onset Date: Unknown Pneumonia (Acute) Onset Date: Unknown Morbid obesity (Chronic) Onset Date: Unknown Asthma (Chronic) Onset Date: Unknown Delirium (Resolved) Onset Date: Unknown Leukocytosis (Resolved) Onset Date: Unknown Gait instability (Chronic) Onset Date: Unknown Altered mental status (Resolved) Onset Date: Unknown Conjunctivitis due to adenovirus, both eyes (Resolved) Onset Date: Unknown Hypothyroidism (Chronic) Onset Date: Unknown Hyperglyceridemia (Chronic) Onset Date: Unknown Hyperlipidemia due to dietary fat intake (Chronic) Onset Date: Unknown Diabetes mellitus (Chronic) Onset Date: Unknown Her last hemoglobin A1c is normal at 5.7 and is no doubt due to the significant weight loss she is had. She has gained 10 pounds since her last visit however. COPD (chronic obstructive pulmonary disease) (Chronic) Onset Date: Unknown Bipolar disorder (Chronic) Onset Date: Unknown Arthritis of knee (Chronic) Onset Date: Unknown Accidental overdose Onset Date: Unknown Back pain Onset Date: Unknown Rib fracture (Inactive) Surgical History: Surgical History (Last Reviewed 12/23/19 @ 12:13 by Lan Santamaria MD) History of total abdominal hysterectomy and bilateral salpingo-oophorectomy Onset Date: Unknown Age 28 Hx of cholecystectomy Onset Date: Unknown Age 35 Hx of tubal ligation Onset Date: Unknown Age 26 Family History: Family History (Last Reviewed 12/23/19 @ 12:13 by Lan Santamaria MD) Mother , @ age 49; unknown to cause Myocardial infarction Father Medical history unknown Social History: (Last Reviewed 12/23/19 @ 12:14 by Lan Santamaria MD) Social History: custodial: No Marital status: household members: children current occupational status: unemployed Highest education level completed: 9th grade Service: No Tobacco: Smoking Status: Current every day smoker tobacco type: cigarettes Smoking cigarettes per day: 20.0 Smoking packs per day: 1 second hand exposure: Yes Alcohol: alcohol intake: former Substance Use: substance use type: does not use Dietary Habits: caffeine: Yes Type: coffee Exercise: Physical activity functional status: normal ROM and activity Physical Exam - Physical Exam General Appearance: Present: lethargic - She wakes with painful stimuli but then falls asleep. Head Exam: Present: normal inspection Eye Exam: Other: bilateral - No evidence of injury Ears, Nose, Throat: Present: normal ENT inspection Neck: Present: normal inspection - Obese, supple Respiratory: Present: lungs clear, other - Decreased breath sounds and respiratory effort. Cardiovascular/Chest: Present: regular rate, rhythm, no murmur Gastrointestinal/Abdominal: Present: normal bowel sounds, nontender - No pain response with palpation, nondistended, soft, other - Obese. Extremity Exam: Present: normal inspection - No evidence of injury. Neurological Exam: Present: other - Difficult due to sedation. No gross lateralizing findings. Skin Exam: Present: normal color, warm/dry Progress - Vital Signs Patient's Vital Signs:: I have reviewed the patient's vital signs. Vital Signs: Vital Signs 12/23/19 11:28 12/23/19 11:31 Pulse Rate 94 109 H Respiratory Rate 21 H 19 Blood Pressure 138/79 O2 Sat by Pulse Oximetry 95 100 - EKG EKG #1 EKG read: Interp. by me EKG Comments: Sinus tachycardia Rate [address] and T wave changes Compared to an EKG dated 10/13/2019, the rate is faster - X-Ray X-Ray #1 X-Ray: chest Interpretation: Reviewed by me X-ray Comments: X-RAY REPORT [id number] RAD/Chest Single View *~ Exam Date: 12/23/2019 12:09 Ordering Physician: Lan Santamaria MD History: Patient unresponsive. Intubated. NG tube placement. Technique: Portable AP view of the chest utilizing 2 images with additional regular and high-resolution postprocessing obtained of the 2 images. Compared to prior dated October 13, 2019 Findings: Endotracheal tube tip is located at the level the clavicles approximately 4.5 cm above the netta. Nasogastric tube projecting past the esophagus into the stomach appropriately positioned. Diffuse hyperinflation of the lungs bilaterally with flattening of the hemidiaphragm. The lungs are clear bilaterally. There is no consolidation, pleural effusion or pneumothorax. Cardiac silhouette and pulmonary vasculature are normal. The osseous structures demonstrate degenerative changes of the spine and shoulders. IMPRESSION: 1. ENDOTRACHEAL TUBE TIP AT THE LEVEL THE CLAVICLES APPROXIMATELY 4.5 CM ABOVE THE NETTA. 2. NG TUBE WITHIN THE STOMACH. 3. NO ACUTE CARDIOPULMONARY ABNORMALITY IDENTIFIED. Electronically signed by Jonathan Carvalho D.O.. Jonathan Carvalho DO Dict: 12/23/19 1229 Typed: 12/23/19 1229/ 12/23/19 1232
[2019-12-23 12:44] LABS: Urine Bilirubin Negative (NEGATIVE); Urine Blood Negative /ul (NEGATIVE); Urine Ketone Negative (NEGATIVE); Urine Nitrite Negative (NEGATIVE); Urine Protein Negative (NEGATIVE); Urine Urobilinogen Normal (NORMAL)
[2019-12-23] MEDS ORDERED: ROCURONIUM BROMIDE 10 MG/ML VIAL ONE (12:50)
[2019-12-23] MEDS ORDERED: ONDANSETRON HCL/PF 2 MG/ML VIAL IV ONE (12:51)
[2019-12-23 12:52] LABS: Urine Amorphous Sediment Few - 1+ (NONE-FEW); Urine Appearance Slightly Cloudy (CLEAR); Urine Bacteria 1+; Urine Color Pale Yellow; Urine RBC None Seen /hpf (0-5); Urine WBC 0-5 /hpf (0-5)
[2019-12-23] MEDS ORDERED: METOCLOPRAMIDE HCL 5 MG/ML VIAL IV ONE (12:52)
[2019-12-23] MEDS ORDERED: ROCURONIUM BROMIDE 10 MG/ML VIAL IV ONE (12:56)
[2019-12-23 12:57] LABS: Cocaine Ur Negative (NEGATIVE); Urine Barbiturate Negative (NEGATIVE); Urine Opiates Negative (NEGATIVE); Urine PCP Negative (NEGATIVE); Urine THC Negative (NEGATIVE)
[2019-12-23 13:09] LABS: Urine Benzodiazepines Positive (NEGATIVE)
--- NOTE | 2019-12-23 16:22 | CONS ---
HPI - General Date of Service: 12/23/19 Source: RN notes reviewed, EMS notes reviewed - History of Present Illness Initial Comments: Miriam Irene is a 49-year-old white female with multiple medical problems in the past including schizophrenia, diabetes mellitus type 2, COPD, morbid obesity, hypothyroidism, bipolar disorder who was admitted on 12/23/2023 for drug overdose. Empty bottles of her amitriptyline and hydrocodone was found near the patient. The patient was doing fine 45 minutes before being brought to the emergency room as per ED notes. The patient was found with cyanotic lips and with with apneic spells and she was intubated after receiving narcan. Her initial blood gas was a pH of 7.32, PCO2 of 52.4, PO2 137.5, HCO3 of 26.5, oxygen saturation of 98.5% after being intubated with SIMV/PRVC with tidal volume of 400 mL, respiratory rate of 15, FiO2 50%, PEEP of 5, pressure support of 10. ABG after increasing respiratory rate to 15/min and decreasing FiO2 to 35% showed a pH of 7.34,PCO2 51.5, PO2 102.7, HCO3 of 26.9, oxygen saturation of 97.3%. Patient is sedated and I am not able to get any history from her. My notes are based on ED and RN notes in the emergency room. They also have consulted poison control. Dr. Whitt is managing her medical problems and I am consulted for vent management. Allergies/Adverse Reactions: Allergies acetaminophen [From Tylenol-Codeine #3] Allergy (Intermediate, Verified 12/23/19 14:41) allergy to medication per dr whitt, do not rx codeine [From Tylenol-Codeine #3] Allergy (Intermediate, Verified 12/23/19 14:41) allergy to medication per dr whitt, do not rx Home Medications: Home Medications Medication Instructions Recorded Last Taken blood sugar diagnostic See Dose Instructions .ROUTE 04/07/19 Unknown .MEDSUPPLY #100 ea albuterol sulfate 90 mcg/actuation 1 - 2 puff IH Q4H PRN #1 inhaler 06/23/19 Unknown aerosol inhaler citalopram 40 mg tablet 40 mg PO DAILY #30 tab 08/04/19 Unknown Ibuprofen 800 mg PO TID PRN 10/13/19 Unknown QUEtiapine FUMARATE [Seroquel] 400 mg PO HS 10/13/19 Unknown alprazolam 1 mg tablet 1 mg PO TID PRN #90 tab 11/10/19 Unknown mirtazapine 30 mg tablet 30 mg PO DAILY #30 tab 11/16/19 Unknown cyclobenzaprine 10 mg tablet 10 mg PO TID #30 tab 12/04/19 Unknown famotidine 20 mg tablet 20 mg PO DAILY #30 tab 12/04/19 Unknown hydrocodone 5 mg-acetaminophen 325 1 tab PO Q8H PRN #45 tab 12/11/19 Unknown mg tablet tramadol 50 mg tablet 100 mg PO QID #240 tab 12/14/19 Unknown Albuterol Sulfate [Proair Hfa] 1 - 2 puff INHALATION Q4H PRN 12/23/19 Unknown Amitriptyline HCl 150 mg PO HS 12/23/19 Unknown Amlodipine Besylate 5 mg PO QAM 12/23/19 Unknown Gabapentin 800 mg PO TID 12/23/19 Unknown Levothyroxine Sodium [Synthroid] 1 tab PO QAM 12/23/19 Unknown Lisinopril 10 mg PO QAM 12/23/19 Unknown Pravastatin Sodium 40 mg PO HS 12/23/19 Unknown Procedures Application of splint (11/10/01) Other immobilization, pressure, and attention to wound (05/14/02) Medications - Medications Current Medications: Current Medications Propofol (Diprivan 1000 Mg/100 Ml Piggyback) 1,000 mg in 100 mls @ 3.471 mls/hr IV TITR PRN; Protocol PRN Reason: Sedation Stop: 01/22/20 11:36 Last Titration: 12/23/19 13:41 Dose: 33.5 mcg/kg/min, 23.256 mls/hr Documented by: Review of Systems - Review of Systems Narrative: Unobtainable due to patient being ventilated and sedated Physical Examination - Exam Vital Signs: Vital Signs - Last Taken Temp 36.2 C 12/23/19 15:29 Pulse 90 12/23/19 15:29 Resp 18 12/23/19 15:29 BP 147/87 H 12/23/19 15:29 Pulse Ox 100 12/23/19 15:29 O2 Oxygen Delivery Method Vent Constitutional: Present: Somnolent - Sedated, Morbidly obese ENT Exam: Present: other - Endotracheal tube in place - Results and Findings: Narrative: We do not have a preintubation arterial blood gases but based on her clinical presentation and her post intubation ABG she has acute respiratory failure combined hypoxemic and hypercapnic from drug overdose from central nervous system depression. We will keep her intubated overnight to support her ventilatory function as her drug overdose is cleared from her body. She does also have a history of COPD although I would have expected a higher CO2. We will increase her tidal volume to 450 mL from 400 as she is a heavyset lady and will decrease her FiO2 to 30%. We will repeat an ABG in 1 hour. Weaning parameters in the morning and possible extubation. She did receive a total of 4 mg of Narcan in the ambulance and in the emergency room. Lab/Microbiology results last 24 hrs: Abnormal/Pending Laboratory Last 24 HRS 12/23/19 12/23/19 12/23/19 15:23 13:45 13:05 Hgb MCHC RDW pCO2 51.5 H 52.4 H pO2 137.5 H Total CO2 28.5 H 28.1 H ABG pH 7.34 L 7.32 L ABG O2 Sat (Measured) 98.5 H Sodium Plasma Sodium Albumin Urine Bacteria Acetaminophen Less than 0.2 L U Benzodiazepines Scrn 12/23/19 12/23/19 12/23/19 12:44 12:44 11:46 Hgb MCHC RDW pCO2 pO2 Total CO2 ABG pH ABG O2 Sat (Measured) Sodium 146 H Plasma Sodium 146 H Albumin 3.3 L Urine Bacteria 1+ H Acetaminophen Less than 0.2 L U Benzodiazepines Scrn Positive H 12/23/19 11:46 Hgb 12.4 L MCHC 31.2 L RDW 15.3 H pCO2 pO2 Total CO2 ABG pH ABG O2 Sat (Measured) Sodium Plasma Sodium Albumin Urine Bacteria Acetaminophen U Benzodiazepines Scrn - Assessments/Findings (1) Altered mental status Problem: Acute Qualifiers: Altered mental status type: transient alteration of awareness Qualified Code(s): R40.4 - Transient alteration of awareness (2) Respiratory failure, acute Problem: Acute (3) Overdose Problem: Acute Qualifiers: Encounter type: initial encounter Injury intent: undetermined intent Qualified Code(s): T50.904A - Poisoning by unspecified drugs, medicaments and biological substances, undetermined, initial encounter (4) Bipolar disorder Problem: Chronic Qualifiers: (5) COPD (chronic obstructive pulmonary disease) Problem: Chronic (6) Diabetes mellitus Problem: Chronic Qualifiers: (7) Hypothyroidism Problem: Chronic Qualifiers: (8) Morbid obesity Problem: Chronic (9) Schizophrenia, chronic condition Problem: Chronic
[2019-12-23] MEDS: CHLORHEXIDINE GLUCONATE 15 ML UDC MM SCH ×2 (16:30→19:00)
[2019-12-23] MEDS ORDERED: CHLORHEXIDINE GLUCONATE 15 ML UDC MM SCH ×3 (16:30→17:15)
[2019-12-23] MEDS: 0.5 NORMAL SALINE 1,000 ML IV PRN (17:26)
--- NOTE | 2019-12-23 17:29 | HP ---
Chief Complaint - Chief Complaint Date of Service: 12/23/19 Time of Service: 17:00 Chief Complaint: Apparent medication overdose, hypoxemia, comatose History of Present Illness: Nora Irene is a 49-year-old morbidly obese female well-known to me. Her psychiatric disorders include schizophrenia, bipolar depression, major depressive disorder, generalized anxiety disorder with panic attacks. She has been taking hydrocodone for back pain but that was weaned off about 2 weeks ago and she has not had any since. She was to have discarded her hydrocodone. She takes a number of psych meds and some lorazepam for her anxiety disorder. She was found unconscious at home and blue in color. EMS was summoned. She was brought to the hospital seen in the emergency room and intubated and placed on a ventilator. She was given Narcan which they thought may have subjectively changed her LOC slightly. She was fighting being intubated and so propofol was used. She has had several admissions in the past for psychotic breaks and other psychiatric illness situations. She is living with an [id number]. Her daughter still has charge of all of her money and controls the bill paying and has done a very good job of that. However she is now living in [place] and rarely sees her mother except once a month to give her some money. Nora feels somewhat abandoned by that and I think has caused an increase in her depression lately. At the time of admission her vital signs are stable her color is improved and she is oxygenating well. She does have some CO2 retention with PCO2 of 51. Dr. Vargas has graciously agreed to Hemphill me and Dr. Busch on this vent patient. His time and expertise is much appreciated. Medical History (Last Reviewed 12/23/19 @ 14:41 by Mitesh Zazueta RN) Emotional crisis, acute reaction to stress (Acute) Onset Date: Unknown Current every day smoker (Chronic) Onset Date: Unknown Pneumonia (Acute) Onset Date: Unknown Schizophrenia, chronic condition (Chronic) Onset Date: Unknown I recently increased her Quetiapine to 400mg @ hs and 200mg in the morning. This has quieted her auditory hallucinations. She is feeling much better mentally. Opioid dependence (Chronic) Onset Date: Unknown Hallucinations improved when she restarted Hydrocodone because of her rib fracture. Psychosis (Chronic) Onset Date: Unknown Hypomania (Chronic) Onset Date: Unknown She has bipolar disease and cycles between her cesar and hypomania. She appears to be in her hypomanic phase at this time and feels more depressed. Fecal incontinence (Acute) Onset Date: Unknown Occurs with sleeping and also having urinary incontinence. Generalized anxiety disorder (Chronic) Onset Date: Unknown Bipolar disorder (Chronic) Onset Date: Unknown Panic disorder (Chronic) Onset Date: Unknown She continues to have several panic attacks without warning and occasionally awakens with them. Currently she is on Seroquel 300 mg at bedtime and 100 mg in the morning. I am going to increase the morning dose to 300 mg so that she will be on that dose twice daily. I am decreasing the citalopram to 20 mg/day because it can aggravate the manic phase of bipolar disease. Weight loss, unintentional (Chronic) Onset Date: Unknown IBS (irritable bowel syndrome) (Chronic) Onset Date: Unknown Depression (Chronic) Onset Date: Unknown Lumbar disc disease with radiculopathy (Chronic) Onset Date: Unknown Early satiety (Acute) Onset Date: Unknown Feels full after a few bites. Anemia (Acute) Onset Date: Unknown Abnormal weight loss (Chronic) Onset Date: Unknown ~80 lbs. Fracture of ankle, right, closed (Acute) Onset Date: ~09/22/18 Dehydration (Resolved) Onset Date: Unknown Renal insufficiency (Resolved) Onset Date: Unknown Ankle fracture, right (Acute) Onset Date: Unknown Pyelonephritis (Acute) Onset Date: Unknown Altered mental status (Acute) Onset Date: Unknown Dehydration (Acute) Onset Date: Unknown Prerenal azotemia (Chronic) Onset Date: Unknown Type II diabetes mellitus (Chronic) Onset Date: Unknown Chronic low back pain with right-sided sciatica (Chronic) Onset Date: Unknown COPD exacerbation (Acute) Onset Date: Unknown COPD (chronic obstructive pulmonary disease) with acute bronchitis (Chronic) Onset Date: Unknown Abdominal pain (Resolved) Onset Date: Unknown COPD (chronic obstructive pulmonary disease) with emphysema (Chronic) Onset Date: Unknown Pleurisy (Acute) Onset Date: Unknown Hypertension (Chronic) Onset Date: Unknown Chronic pain (Chronic) Onset Date: Unknown Sciatic nerve pain (Acute) Onset Date: Unknown Back pain (Chronic) Onset Date: Unknown Piriformis syndrome (Acute) Onset Date: Unknown Sciatica (Chronic) Onset Date: Unknown Left knee injury (Acute) Onset Date: Unknown Atypical chest pain (Acute) Onset Date: Unknown Right lumbar radiculitis (Chronic) Onset Date: Unknown Has had sciatica before but never this bad. Can't get comfortable. Cough (Acute) Onset Date: Unknown Fever (Acute) Onset Date: Unknown Pneumonia (Acute) Onset Date: Unknown Morbid obesity (Chronic) Onset Date: Unknown Asthma (Chronic) Onset Date: Unknown Delirium (Resolved) Onset Date: Unknown Leukocytosis (Resolved) Onset Date: Unknown Gait instability (Chronic) Onset Date: Unknown Altered mental status (Resolved) Onset Date: Unknown Conjunctivitis due to adenovirus, both eyes (Resolved) Onset Date: Unknown Hypothyroidism (Chronic) Onset Date: Unknown Hyperglyceridemia (Chronic) Onset Date: Unknown Hyperlipidemia due to dietary fat intake (Chronic) Onset Date: Unknown Diabetes mellitus (Chronic) Onset Date: Unknown Her last hemoglobin A1c is normal at 5.7 and is no doubt due to the significant weight loss she is had. She has gained 10 pounds since her last visit however. COPD (chronic obstructive pulmonary disease) (Chronic) Onset Date: Unknown Bipolar disorder (Chronic) Onset Date: Unknown Arthritis of knee (Chronic) Onset Date: Unknown Accidental overdose Onset Date: Unknown Back pain Onset Date: Unknown Rib fracture (Inactive) Surgical History: Surgical History (Last Reviewed 12/23/19 @ 14:41 by Mitesh Zazueta RN) History of total abdominal hysterectomy and bilateral salpingo-oophorectomy Onset Date: Unknown Age 28 Hx of cholecystectomy Onset Date: Unknown Age 35 Hx of tubal ligation Onset Date: Unknown Age 26 Family History: Family History (Last Reviewed 12/23/19 @ 14:41 by Mitesh Zazueta RN) Mother , @ age 49; unknown to cause Myocardial infarction Father Medical history unknown Social History: (Last Reviewed 12/23/19 @ 14:41 by Mitesh Zazueta RN) Social History: jail: No Marital status: household members: children current occupational status: unemployed Highest education level completed: 9th grade Service: No Tobacco: Smoking Status: Current every day smoker tobacco type: cigarettes Smoking cigarettes per day: 20.0 Smoking packs per day: 1 second hand exposure: Yes Alcohol: alcohol intake: former Substance Use: substance use type: does not use Dietary Habits: caffeine: Yes Type: coffee Exercise: Physical activity functional status: normal ROM and activity Review Of Systems (GEN) - Review of Systems Generalized/Overall Review: Present: No Symptoms Reported EENTM: Present: No Symptoms Reported Respiratory: Present: Other Cardiac: Present: No Symptoms Reported Abdominal: Present: No Symptoms Reported Genitourinary: Present: No Symptoms Reported Musculoskeletal: Present: No Symptoms Reported Neurological: Present: No Symptoms Reported Skin: Present: No Symptoms Reported Endocrine: Present: No Symptoms Reported Immunizations: IMMUNIZATION HX Immunizations Up to Date Yes History of Influenza Vaccine Yes Hx Pneumococcal Vaccination No Allergies/Adverse Reactions: Allergies Allergy/AdvReac Type Severity Reaction Status Date / Time acetaminophen Allergy Intermediate allergy to Verified 12/23/19 14:41 [From Tylenol-Codeine #3] medication per dr simpson, do not rx codeine Allergy Intermediate allergy to Verified 12/23/19 14:41 [From Tylenol-Codeine #3] medication per dr simpson, do not rx Home Medications: HOME MEDICATIONS blood sugar diagnostic See Dose Instructions .ROUTE .MEDSUPPLY #100 ea 04/07/19 [Last Taken Unknown] albuterol sulfate 90 mcg/actuation aerosol inhaler 1 - 2 puff IH Q4H PRN #1 inhaler 06/23/19 [Last Taken Unknown] citalopram 40 mg tablet 40 mg PO DAILY #30 tab 08/04/19 [Last Taken Unknown] Ibuprofen 800 mg PO TID PRN 10/13/19 [Last Taken Unknown] QUEtiapine FUMARATE [Seroquel] 400 mg PO BID 10/13/19 [Last Taken Unknown] alprazolam 1 mg tablet 1 mg PO TID PRN #90 tab 11/10/19 [Last Taken Unknown] mirtazapine 30 mg tablet 30 mg PO DAILY #30 tab 11/16/19 [Last Taken Unknown] cyclobenzaprine 10 mg tablet 10 mg PO TID #30 tab 12/04/19 [Last Taken Unknown] famotidine 20 mg tablet 20 mg PO DAILY #30 tab 12/04/19 [Last Taken Unknown] hydrocodone 5 mg-acetaminophen 325 mg tablet 1 tab PO Q8H PRN #45 tab 12/11/19 [Last Taken Unknown] tramadol 50 mg tablet 100 mg PO QID #240 tab 12/14/19 [Last Taken Unknown] Albuterol Sulfate [Proair Hfa] 1 - 2 puff INHALATION Q4H PRN 12/23/19 [Last Taken Unknown] Amitriptyline HCl 150 mg PO HS 12/23/19 [Last Taken Unknown] Amlodipine Besylate 5 mg PO QAM 12/23/19 [Last Taken Unknown] Gabapentin 800 mg PO TID 12/23/19 [Last Taken Unknown] Levothyroxine Sodium [Synthroid] 1 tab PO QAM 12/23/19 [Last Taken Unknown] Lisinopril 10 mg PO QAM 12/23/19 [Last Taken Unknown] Pravastatin Sodium 40 mg PO HS 12/23/19 [Last Taken Unknown] Exam - Exam Vital Signs: Vital Signs - Last Taken Temp 36.2 C 12/23/19 16:32 Pulse 89 12/23/19 16:32 Resp 20 12/23/19 16:32 BP 144/95 H 12/23/19 16:32 Pulse Ox 98 12/23/19 16:32 Constitutional: Present: No distress, Other - Patient is on a ventilator and asleep with propofol, Middle aged, Morbidly obese ENT Exam: Present: normal ENT inspection, hearing grossly normal, pharynx normal Eye Exam: bilateral eye: normal inspection, PERRL, EOMI Neck: Present: non-tender, full range of motion, supple, normal inspection Back Exam: Present: normal inspection, no CVA tenderness, no vertebral tenderness Breasts: Present: Exam deferred Respiratory: Present: chest non-tender, lungs clear, normal breath sounds, no respiratory distress, no accessory muscle use, other - Ventilated Cardiovascular/Chest: Present: normal peripheral pulses, regular rate, rhythm, no chest tenderness, no edema, no gallop, no JVD, no murmur, no rub Peripheral Pulses: carotid (R): 2+, carotid (L): 2+, radial (R): 2+, radial (L): 2+ Abdomen: Present: Normal bowel sounds, soft, nontender, nondistended, no hepatospenomegaly, no masses, obese Extremity: Present: normal range of motion, non-tender, normal inspection, no pedal edema, no calf tenderness, normal capillary refill Skin Exam: Present: normal color, warm/dry, no cyanosis - Now. She was cyanotic when the family found her at home. Lymphatic: Present: no adenopathy Neurologic: Present: damage adjuster II-XII nml as tested Appearance: Present: disheveled Eye contact: Present: other - Unable Thoughts: Present: other - Comatose Diagnostic Studies: Abnormal Lab Results 12/23/19 12/23/19 12/23/19 Range/Units 11:46 11:46 12:44 Hgb 12.4 L (12.5-16.0) gm/dL MCHC 31.2 L (32-36) g/dl RDW 15.3 H (11.5-14.0) % pCO2 (32.0-45.0) mmHg pO2 (83.0-108.0) mmHg Total CO2 (19.0-24.0) mmol/L ABG pH (7.35-7.45) ABG O2 Sat (Measured) (94.0-98.0) % Sodium 146 H (132-142) mmol/L Plasma Sodium 146 H (130-142) mmol/L Albumin 3.3 L (3.4-5.0) gm/dl Urine Bacteria 1+ H (NONE) Acetaminophen Less than 0.2 L (10.0-30.0) mcg/mL U Benzodiazepines Scrn (NEGATIVE) 12/23/19 12/23/19 12/23/19 Range/Units 12:44 13:05 13:45 Hgb (12.5-16.0) gm/dL MCHC (32-36) g/dl RDW (11.5-14.0) % pCO2 52.4 H (32.0-45.0) mmHg pO2 137.5 H (83.0-108.0) mmHg Total CO2 28.1 H (19.0-24.0) mmol/L ABG pH 7.32 L (7.35-7.45) ABG O2 Sat (Measured) 98.5 H (94.0-98.0) % Sodium (132-142) mmol/L Plasma Sodium (130-142) mmol/L Albumin (3.4-5.0) gm/dl Urine Bacteria (NONE) Acetaminophen Less than 0.2 L (10.0-30.0) mcg/mL U Benzodiazepines Scrn Positive H (NEGATIVE) 12/23/19 12/23/19 Range/Units 15:23 16:46 Hgb (12.5-16.0) gm/dL MCHC (32-36) g/dl RDW (11.5-14.0) % pCO2 51.5 H 46.5 H (32.0-45.0) mmHg pO2 76.6 L (83.0-108.0) mmHg Total CO2 28.5 H 27.2 H (19.0-24.0) mmol/L ABG pH 7.34 L (7.35-7.45) ABG O2 Sat (Measured) (94.0-98.0) % Sodium (132-142) mmol/L Plasma Sodium (130-142) mmol/L Albumin (3.4-5.0) gm/dl Urine Bacteria (NONE) Acetaminophen (10.0-30.0) mcg/mL U Benzodiazepines Scrn (NEGATIVE) Laboratory Results WBC 8.5 K/mm3 (4.0-10.5) 12/23/19 11:46 RBC 4.48 M/mm3 (4.2-5.4) 12/23/19 11:46 Hgb 12.4 gm/dL (12.5-16.0) L 12/23/19 11:46 Hct 39.7 % (37.0-47.0) 12/23/19 11:46 MCV 88.6 fl (78-100) 12/23/19 11:46 MCH 27.7 pg (27-31) 12/23/19 11:46 MCHC 31.2 g/dl (32-36) L 12/23/19 11:46 RDW 15.3 % (11.5-14.0) H 12/23/19 11:46 Plt Count 358 K/mm3 (150-450) 12/23/19 11:46 MPV 9.1 fl (8-12.5) 12/23/19 11:46 Immature Gran % (Auto) 0.40 % (0.001-0.429) 12/23/19 11:46 Immature Gran # (Auto) 0.03 K/mm3 (0.000-0.0310) 12/23/19 11:46 Neutrophils % 60.8 % (42-75.0) 12/23/19 11:46 Lymphocytes % 27.8 % (20-51) 12/23/19 11:46 Monocytes % 8.5 % (0.0-9) 12/23/19 11:46 Eosinophils % 1.9 % (0.0-3.0) 12/23/19 11:46 Basophils % 0.6 % (0.0-1.0) 12/23/19 11:46 Nucleated RBC % 0.0 k/mm3 (0-1) 12/23/19 11:46 Neutrophils # 5.2 K/mm3 (1.3-6.0) 12/23/19 11:46 Lymphocytes # 2.35 k/mm3 (1.5-3.5) 12/23/19 11:46 Monocytes # 0.7 k/mm3 (0.0-1.0) 12/23/19 11:46 Eosinophils # 0.2 k/mm3 (0.0-0.7) 12/23/19 11:46 Absolute Basophils 0.1 k/mm3 (0.0-0.1) 12/23/19 11:46 pCO2 46.5 mmHg (32.0-45.0) H 12/23/19 16:46 pO2 76.6 mmHg (83.0-108.0) L 12/23/19 16:46 HCO3 25.7 mmol/L (21.0-28.0) 12/23/19 16:46 Total CO2 27.2 mmol/L (19.0-24.0) H 12/23/19 16:46 Base Excess -0.1 mmol/L (-2.0-3.0) 12/23/19 16:46 ABG pH 7.36 (7.35-7.45) 12/23/19 16:46 ABG O2 Sat (Measured) 94.8 % (94.0-98.0) 12/23/19 16:46 Sodium 146 mmol/L (132-142) H 12/23/19 11:46 Plasma Sodium 146 mmol/L (130-142) H 12/23/19 11:46 Potassium 4.0 mmol/L (3.4-4.6) D 12/23/19 11:46 Chloride 106 mmol/L (97-106) 12/23/19 11:46 Carbon Dioxide 31.7 mmol/L (24-32.6) 12/23/19 11:46 Anion Gap 12.3 mmol/L (6.8-13.8) 12/23/19 11:46 BUN 17 mg/dL (3-23) D 12/23/19 11:46 Creatinine 0.90 mg/dL (0.4-1.4) 12/23/19 11:46 Est GFR (Non-Af Amer) 70 mL/min (60-130) D 12/23/19 11:46 BUN/Creatinine Ratio 18.9 (9.0-21.6) 12/23/19 11:46 Random Glucose 99 mg/dL (70-110) 12/23/19 11:46 Calcium 9.2 mg/dL (7.9-10.9) 12/23/19 11:46 Calcium Adj for Albumin 9.4 mg/dL (8.4-10.2) 12/23/19 11:46 Total Bilirubin 0.1 mg/dL (0.0-1.1) 12/23/19 11:46 AST 10 U/L (0-48) 12/23/19 11:46 ALT 20 U/L (19-67) 12/23/19 11:46 Alkaline Phosphatase 113 U/L (50-170) 12/23/19 11:46 Total Protein 6.9 gm/dL (6.2-8.2) 12/23/19 11:46 Albumin 3.3 gm/dl (3.4-5.0) L 12/23/19 11:46 Urine Color Pale yellow 12/23/19 12:44 Urine Appearance Slightly cloudy (CLEAR) 12/23/19 12:44 Urine pH 7.0 pH (5.0-7.0) 12/23/19 12:44 Ur Specific Piercy 1.010 SP.GR. (1.005-1.010) 12/23/19 12:44 Urine Protein Negative mg/dL (NEGATIVE) 12/23/19 12:44 Urine Glucose (UA) Negative mg/dL (NEGATIVE) 12/23/19 12:44 Urine Ketones Negative mg/dL (NEGATIVE) 12/23/19 12:44 Urine Blood Negative /ul (NEGATIVE) 12/23/19 12:44 Urine Nitrate Negative (NEGATIVE) 12/23/19 12:44 Urine Bilirubin Negative mg/dl (NEGATIVE) 12/23/19 12:44 Urine Urobilinogen Normal EU/dl (NORMAL) 12/23/19 12:44 Ur Leukocyte Esterase Negative /ul (NEGATIVE) 12/23/19 12:44 Urine RBC None seen /hpf (0-5) 12/23/19 12:44 Urine WBC 0-5 /hpf (0-5) 12/23/19 12:44 Ur Epithelial Cells 0-5 /hpf (0-5) 12/23/19 12:44 Amorphous Sediment Few - 1+ (NONE-FEW) 12/23/19 12:44 Urine Bacteria 1+ (NONE) H 12/23/19 12:44 Urine Culture Comments Culture to follow 12/23/19 12:44 Salicylates 4.7 mg/dL (2.8-20.0) 12/23/19 11:46 Urine Opiates Screen Negative (NEGATIVE) 12/23/19 12:44 Acetaminophen Less than 0.2 mcg/mL (10.0-30.0) L 12/23/19 13:45 Barbiturate Screen Negative (NEGATIVE) 12/23/19 12:44 Ur Phencyclidine Scrn Negative (NEGATIVE) 12/23/19 12:44 Urine Amphetamine Negative (NEGATIVE) 12/23/19 12:44 U Benzodiazepines Scrn Positive (NEGATIVE) H 12/23/19 12:44 Urine Cocaine Screen Negative (NEGATIVE) 12/23/19 12:44 Urine Marijuana (THC) Negative (NEGATIVE) 12/23/19 12:44 Ethyl Alcohol Less than 3.0 mg/dL (0.0-10.0) 12/23/19 11:46 Assessment/Plan - Narrative Narrative: she is intubated and is tolerating it well. Vent settings are being adjusted. She will be in the SCU and remain intubated through the night and I will plan to extubate her tomorrow morning. She will have blood sugar checks every 6 hours. Routine ventilator care provided. - Assessment/Plan (1) Overdose Problem: Acute Qualifiers: Encounter type: initial encounter Injury intent: undetermined intent Qualified Code(s): T50.904A - Poisoning by unspecified drugs, medicaments and biological substances, undetermined, initial encounter (2) Respiratory failure, acute Problem: Acute Qualifiers: Respiratory failure complication: hypoxia and hypercapnia Qualified Code(s): J96.01 - Acute respiratory failure with hypoxia; J96.02 - Acute respiratory failure with hypercapnia (3) Emotional crisis, acute reaction to stress Problem: Acute (4) Paranoid schizophrenia Problem: Chronic (5) Generalized anxiety disorder Problem: Chronic (6) Bipolar disorder Problem: Chronic Qualifiers: Active/Remission status: currently active Current bipolar episode type: hypomanic Qualified Code(s): F31.0 - Bipolar disorder, current episode hypomanic (7) Morbid obesity Problem: Chronic (8) Diabetes mellitus Problem: Chronic Qualifiers: Diabetes mellitus type: type 2 Diabetes mellitus fdc insulin use: without fdc use Diabetes mellitus complication status: without compli cation Qualified Code(s): E11.9 - Type 2 diabetes mellitus without complications
[2019-12-23] MEDS: PANTOPRAZOLE SODIUM 40 MG in NORMAL SALINE 100 ML IV SCH (17:34)
[2019-12-23] MEDS: ENOXAPARIN SODIUM 40 MG/0.4 ML SYRG SC SCH (17:34)
[2019-12-23] MEDS ORDERED: ALBUTEROL SULFATE 2.5 MG/0.5 ML VIAL.NEB IH PRN (17:54)
[2019-12-23] MEDS ORDERED: LORazepam 2 MG/ML DISP.SYRIN ONE (23:28)
[2019-12-23] MEDS: LORazepam 2 MG/ML DISP.SYRIN IV PRN (23:34)
[2019-12-24] MEDS ORDERED: MORPHINE SULFATE 4 MG/ML SYRG IV ONE ×2 (01:18→03:43)
[2019-12-24] MEDS: PROPOFOL 1,000 MG/100 ML PIGGYBACK IV PRN ×3 (01:29→06:37)
[2019-12-24] MEDS: LORazepam 2 MG/ML DISP.SYRIN IV PRN (03:33)
[2019-12-24] MEDS: 0.5 NORMAL SALINE 1,000 ML IV PRN ×2 (03:45→14:53)
--- NOTE | 2019-12-24 07:51 | PN ---
Progess Note - Interim Date: 12/24/19 Time: 07:46 Narrative: 12/24/19 07:46 Patient intubated yesterday for airway support due to drug overdose. Patient is hemodynamically stable and with good vent parameters. ABG and CXR stable. Patient was extubated and tolerated it well. VS post-extubation- BP150/98, HR 92, RR16-18, 99% on RA. Will sign out. Thank you for your referral.
[2019-12-24] MEDS ORDERED: ALBUTEROL SULFATE 200 PUFF INHALER IH PRN (08:07)
[2019-12-24] MEDS ORDERED: IBUPROFEN 800 MG TABLET PO PRN (08:07)
[2019-12-24] MEDS: CHLORHEXIDINE GLUCONATE 15 ML UDC MM SCH (08:35)
--- NOTE | 2019-12-24 08:57 | PN ---
Subjective - Date and Time Seen Date: 12/24/19 Time: 07:45 Subjective Narrative: Nora has had an uneventful night on the ventilator except that she became restless on the ventilator with just the propofol on board. Dr. Vargas was managing the ventilator and I deferred medication request to him for that. The rest of her night was uneventful. Dr. Vargas ordered the propofol to be discontinued at 07 100 and she was extubated at 0707 without incident. I saw h er at 07 40 5 AM and she is alert and conversant and in no distress. She says she does not remember what happened yesterday. She said she was having a good day and was feeling well but does not remember overdosing on medications. She has had no cardiac dysrhythmias during the night. Her admission EKG in the 1 this morning did not show any prolongation of the QT interval. She is taking both citalopram and K tiagabine that in combination can cause prolonged QT interval but it is not apparent on her EKGs. Therefore, it is still unknown as to whether this was a drug overdose event and if so was not intentional?. I will repeat her EKG again this morning to see if there is any change in the QT interval or ST segments. ST segments have been nonspecific to mild ST depression. Her ABGs have consistently shown some mild hypercarbia with PCO2 in the low 40s. This morning was 41. I will repeat the blood gases on room air again tomorrow morning. She will be weaned off of her oxygen today. We will move her to [facility] and let her be up ad sarika. with assistance the first time or 2. We will start her on full liquids and progress her diet. She will continue with continuous cardiac monitoring. Vital signs will be decreased to every 6 hours. Blood sugars to be checked twice daily AC breakfast and supper. I appreciate the consult and assistance in vent management from Dr. Vargas. Also being proctored on this vent case is Dr. Busch and Dr. Arguelles. Objective - Review of Systems Generalized/Overall Review: Reports: No Symptoms Reported EENTM: Reports: No Symptoms Reported Respiratory: Reports: No Symptoms Reported Cardiac: Reports: No Symptoms Reported Abdominal: Reports: No Symptoms Reported Genitourinary Symptoms: Reports: No Symptoms Reported Musculoskeletal Complaints: Reports: Back Pain Neurological: Reports: No Symptoms Reported Skin: Reports: No Symptoms Reported Endocrine: Reports: No Symptoms Reported - Vitals Vitals: Last Vital Signs Temp 36.8 C 12/24/19 08:18 Pulse 92 12/24/19 08:18 Resp 16 12/24/19 08:18 BP 120/92 H 12/24/19 08:18 Pulse Ox 92 L 12/24/19 08:18 - Abnormal Lab Findings Abnormal Lab Findings: Abnormal Lab Results 12/23/19 12/23/19 12/23/19 Range/Units 11:46 11:46 12:44 Hgb 12.4 L (12.5-16.0) gm/dL MCHC 31.2 L (32-36) g/dl RDW 15.3 H (11.5-14.0) % pCO2 (32.0-45.0) mmHg pO2 (83.0-108.0) mmHg Total CO2 (19.0-24.0) mmol/L ABG pH (7.35-7.45) ABG O2 Sat (Measured) (94.0-98.0) % Sodium 146 H (132-142) mmol/L Plasma Sodium 146 H (130-142) mmol/L Albumin 3.3 L (3.4-5.0) gm/dl Urine Bacteria 1+ H (NONE) Acetaminophen Less than 0.2 L (10.0-30.0) mcg/mL U Benzodiazepines Scrn (NEGATIVE) 12/23/19 12/23/19 12/23/19 Range/Units 12:44 13:05 13:45 Hgb (12.5-16.0) gm/dL MCHC (32-36) g/dl RDW (11.5-14.0) % pCO2 52.4 H (32.0-45.0) mmHg pO2 137.5 H (83.0-108.0) mmHg Total CO2 28.1 H (19.0-24.0) mmol/L ABG pH 7.32 L (7.35-7.45) ABG O2 Sat (Measured) 98.5 H (94.0-98.0) % Sodium (132-142) mmol/L Plasma Sodium (130-142) mmol/L Albumin (3.4-5.0) gm/dl Urine Bacteria (NONE) Acetaminophen Less than 0.2 L (10.0-30.0) mcg/mL U Benzodiazepines Scrn Positive H (NEGATIVE) 12/23/19 12/23/19 12/24/19 Range/Units 15:23 16:46 05:15 Hgb (12.5-16.0) gm/dL MCHC (32-36) g/dl RDW (11.5-14.0) % pCO2 51.5 H 46.5 H 46.1 H (32.0-45.0) mmHg pO2 76.6 L 69.8 L (83.0-108.0) mmHg Total CO2 28.5 H 27.2 H 25.8 H (19.0-24.0) mmol/L ABG pH 7.34 L 7.34 L (7.35-7.45) ABG O2 Sat (Measured) 93.0 L (94.0-98.0) % Sodium (132-142) mmol/L Plasma Sodium (130-142) mmol/L Albumin (3.4-5.0) gm/dl Urine Bacteria (NONE) Acetaminophen (10.0-30.0) mcg/mL U Benzodiazepines Scrn (NEGATIVE) - EKG/Xray Findings EKG: NSR, nonspecific ST T wave chg EKG read: Reviewed by me XRAY: chest Interpretation: Reviewed by me - Exam Constitutional: Present: Alert, Oriented x3, Cooperative, Well developed, Well nourished, No distress, Morbidly obese ENT Exam: Present: normal ENT inspection, hearing grossly normal, pharynx normal, TMs normal, pharyngeal erythema - Due to overnight intubation Neck: Present: non-tender, full range of motion, supple, normal inspection Breasts: Present: Exam deferred Respiratory: Present: chest non-tender, lungs clear, normal breath sounds, no respiratory distress, no accessory muscle use Cardiovascular/Chest: Present: normal peripheral pulses, regular rate, rhythm, no chest tenderness, no edema, no gallop, no JVD, no murmur, no rub Abdomen: Present: Normal bowel sounds, soft, nontender, nondistended, no rebound tenderness, no hepatospenomegaly, no masses, obese /Rectal: Present: Exam deferred Extremity: Present: normal range of motion, non-tender, normal inspection, no pedal edema, no calf tenderness, normal capillary refill Skin Exam: Present: normal color, warm/dry, no cyanosis Lymphatic: Present: no adenopathy Neurologic: Present: deportation examiner II-XII nml as tested, normal cerebellar test, no motor/sensory deficits, alert, normal mood/affect, oriented x 3 Appearance: Present: appropriate appearance, appropriate insight, neat, no memory impairment, denies illness Eye contact: Present: cooperative, good eye contact, normal speech Cauti Physician Documentation - Urinary Catheter Management Urethral (George) Date of Insertion: 12/23/19 Time of Insertion: 12:33 Date of Removal: 12/24/19 Time of Removal: 07:40 Assessment/Plan Plan Narrative: 1. Moved to general medical floor 2. Restart most home meds as ordered 3. Continuous cardiac monitoring 4. Check CBC, CMP, and EKG this morning 5. Start with full liquids and progress her diet 6. Continue IV Protonix for 1 more dose and then I will DC it in the morning 7. Repeat ABGs tomorrow morning - Problems/Diagnosis (1) Overdose Problem: Suspected Qualifiers: Encounter type: initial encounter Injury intent: undetermined intent Qualified Code(s): T50.904A - Poisoning by unspecified drugs, medicaments and biological substances, undetermined, initial encounter (2) Respiratory failure, acute Problem: Resolved Qualifiers: Respiratory failure complication: hypoxia and hypercapnia Qualified Code(s): J96.01 - Acute respiratory failure with hypoxia; J96.02 - Acute respiratory failure with hypercapnia (3) Emotional crisis, acute reaction to stress Problem: Chronic (4) Paranoid schizophrenia Problem: Chronic (5) Generalized anxiety disorder Problem: Chronic (6) Bipolar disorder Problem: Chronic Qualifiers: Active/Remission status: currently active Current bipolar episode type: hypomanic Qualified Code(s): F31.0 - Bipolar disorder, current episode hypomanic (7) Morbid obesity Problem: Chronic (8) Diabetes mellitus Problem: Chronic Qualifiers: Diabetes mellitus type: type 2 Diabetes mellitus exterminator helper insulin use: without exterminator helper use Diabetes mellitus complication status: without complication Qualified Code(s): E11.9 - Type 2 diabetes mellitus without complications
[2019-12-24 08:58] LABS: Hematocrit 39.1 % (37.0-47.0); Hemoglobin 12.1 gm/dL (12.5-16.0); Mean Cell Volume 89.5 fl (78-100); Mean Corpuscular Hemoglobin 27.7 pg (27-31); Mean Corpuscular Hgb Conc 30.9 g/dl (32-36); Mean Platelet Volume 9.1 fl (8-12.5); Neutrophil # 7.7 K/mm3 (1.3-6.0); Neutrophil % 67.3 % (42-75.0); Platelet Count 353 K/mm3 (150-450); Red Blood Count 4.37 M/mm3 (4.2-5.4); Red Cell Distribution Width 15.6 % (11.5-14.0); White Blood Count 11.5 K/mm3 (4.0-10.5)
[2019-12-24 09:09] LABS: Albumin * 3.2 gm/dl (3.4-5.0); Anion Gap 7.3 mmol/L (6.8-13.8); Bilirubin, Total 0.2 mg/dL (0.0-1.1); Ca. Corrected For Albumin 8.7 mg/dL (8.4-10.2); Calcium * 8.4 mg/dL (7.9-10.9); Carbon Dioxide 32.5 mmol/L (24-32.6); Potassium 3.8 mmol/L (3.4-4.6); Total Protein 6.7 gm/dL (6.2-8.2)
[2019-12-24] MEDS: LEVOTHYROXINE SODIUM 137 MCG TABLET PO SCH (09:11)
[2019-12-24] MEDS: GABAPENTIN 400 MG CAPSULE PO SCH ×3 (09:11→16:07)
[2019-12-24] MEDS: MIRTAZAPINE 15 MG TABLET PO SCH (09:12)
[2019-12-24] MEDS: amLODIPine BESYLATE 5 MG TABLET PO SCH (09:12)
[2019-12-24] MEDS: LISINOPRIL 10 MG TABLET PO SCH (09:12)
[2019-12-24] MEDS: CITALOPRAM HYDROBROMIDE 20 MG TABLET PO SCH (09:12)
[2019-12-24] MEDS: QUEtiapine FUMARATE 100 MG TABLET PO SCH (09:13)
[2019-12-24] MEDS: ENOXAPARIN SODIUM 40 MG/0.4 ML SYRG SC SCH (16:06)
[2019-12-24] MEDS: PANTOPRAZOLE SODIUM 40 MG in NORMAL SALINE 100 ML IV SCH (16:07)
--- NOTE | 2019-12-24 17:29 | PN ---
Jackie Note - Interim Date: 12/24/19 Time: 17:15 Narrative: 12/24/19 17:15 I came to see Nora this evening and she now has full recollection of the events of yesterday and what led to her near . Nora had had an emotional day on December 21. It revolves around not being able to have regular visits with her daughter. Nora think she is being avoided by her children. She was despondent. She had not taken her alprazolam every 6 hours through the day but instead had hoarded them. She went to bed about 11:00 and just before retiring took her evening medicines including Seroquel 400 mg, Remeron 30 mg, and then took 8 mg of alprazolam because she just wanted to go to sleep. She states that she was not intentionally trying to harm herself. She was found the next morning about 10 AM by her daughter and she was cyanotic and had agonal respirations. She stimulated her and called EMS. They gave HER-2 amps of Narcan and then she got another 2 A of Narcan when she arrived in ER. There was thought to be some subjective mild improvement but I think it was more from physical stimulation. She had no narcotics on board to reverse. There were empty bottles of amitriptyline and hydrocodone found in her room but they are empty because she has not been taking them for about 3 weeks. She flushed the remaining part of the prescriptions about 3 weeks ago. The only positive test on her urine drug screen was benzodiazepines. She also takes tramadol which is prescribed to be taken on a regular schedule but she takes more as needed. She had not taken any yesterday. I did order a tramadol urine test this morning and also ordered a benzodiazepine blood level for quantitative purposes but they are both send out tests and will be probably a week getting back. She is amnestic about the events from the time she fell asleep until being extubated this morning. Her memory has gradually improved through the day but she is very lucid this evening. I do not think she is a danger to herself or anybody else and I do think this was an accidental event not an attempted suicide. Her prolonged sleep is due to a combination of too much alprazolam (8 mg), Remeron 30 mg and Seroquel 400 mg. On arrival she was moving and agitated. She had confused and slurred speech. And she would fall back asleep easily and quickly. She was intubated to protect her airway and remained on the vent in the SCU through the night and was extubated at 0707 this morning. She also takes philip lopram and there is some concern for QT prolongation with it being combined with Seroquel. Serial EKGs have shown no prolongation of the QTc interval. She has been very stable throughout the day and is on room air without difficulty. I will repeat her CBC, CMP, blood gases, and EKG one more time tomorrow morning and then anticipate discharge. The encephalopathy is most likely toxic encephalopathy from the medications. There is no evidence to support metabolic encephalopathy. Since I know her well she seems to be at her normal baseline this evening. I do not anticipate any other medical issues developing through the night.
[2019-12-24] MEDS ORDERED: AMITRIPTYLINE HCL 50 MG TABLET PO SCH (21:00)
[2019-12-24] MEDS ORDERED: QUEtiapine FUMARATE 100 MG TABLET PO SCH (21:00)
[2019-12-25 06:10] LABS: Hematocrit 40.9 % (37.0-47.0); Hemoglobin 12.4 gm/dL (12.5-16.0); Mean Cell Volume 90.5 fl (78-100); Mean Corpuscular Hemoglobin 27.4 pg (27-31); Mean Corpuscular Hgb Conc 30.3 g/dl (32-36); Mean Platelet Volume 9.5 fl (8-12.5); Neutrophil # 5.5 K/mm3 (1.3-6.0); Neutrophil % 60.2 % (42-75.0); Platelet Count 323 K/mm3 (150-450); Red Blood Count 4.52 M/mm3 (4.2-5.4); Red Cell Distribution Width 15.5 % (11.5-14.0); White Blood Count 9.2 K/mm3 (4.0-10.5)
[2019-12-25 06:20] LABS: Albumin * 3.1 gm/dl (3.4-5.0); Anion Gap 10.4 mmol/L (6.8-13.8); BUN/Creatinine Ratio 20.8 (9.0-21.6); Bilirubin, Total 0.2 mg/dL (0.0-1.1); Ca. Corrected For Albumin 9.1 mg/dL (8.4-10.2); Calcium * 8.7 mg/dL (7.9-10.9); Carbon Dioxide 30.7 mmol/L (24-32.6); Potassium 4.1 mmol/L (3.4-4.6); Total Protein 6.8 gm/dL (6.2-8.2)
[2019-12-25] MEDS: MIRTAZAPINE 15 MG TABLET PO SCH (08:02)
[2019-12-25] MEDS: CITALOPRAM HYDROBROMIDE 20 MG TABLET PO SCH (08:02)
[2019-12-25] MEDS: GABAPENTIN 400 MG CAPSULE PO SCH (08:02)
[2019-12-25] MEDS: LISINOPRIL 10 MG TABLET PO SCH (08:02)
[2019-12-25] MEDS: LEVOTHYROXINE SODIUM 137 MCG TABLET PO SCH (08:03)
[2019-12-25] MEDS: amLODIPine BESYLATE 5 MG TABLET PO SCH (08:03)
[2019-12-25] MEDS: QUEtiapine FUMARATE 100 MG TABLET PO SCH (08:03)
--- NOTE | 2019-12-25 08:31 | DS ---
(1) Overdose Problem: Suspected Qualifiers: Encounter type: subsequent encounter Injury intent: undetermined intent Qualified Code(s): T50.904D - Poisoning by unspecified drugs, medicaments and biological substances, undetermined, subsequent encounter (2) Respiratory failure, acute Problem: Resolved Qualifiers: Respiratory failure complication: hypoxia and hypercapnia Qualified Code(s): J96.01 - Acute respiratory failure with hypoxia; J96.02 - Acute respiratory failure with hypercapnia (3) Emotional crisis, acute reaction to stress Problem: Chronic (4) Paranoid schizophrenia Problem: Chronic (5) Generalized anxiety disorder Problem: Chronic (6) Bipolar disorder Problem: Chronic Qualifiers: Active/Remission status: currently active Current bipolar episode type: hypomanic Qualified Code(s): F31.0 - Bipolar disorder, current episode hypomanic (7) Morbid obesity Problem: Chronic (8) Diabetes mellitus Problem: Chronic Qualifiers: Diabetes mellitus type: type 2 Diabetes mellitus tank terminal gauger insulin use: without tank terminal gauger use Diabetes mellitus complication status: without complication Qualified Code(s): E11.9 - Type 2 diabetes mellitus without complications (9) COPD (chronic obstructive pulmonary disease) Problem: Chronic Qualifiers: COPD type: chronic bronchitis Chronic bronchitis type: simple Qualified Code(s): J41.0 - Simple chronic bronchitis Date of Discharge:: 12/25/19 Hospital Course: I came to see Nora last evening and she now has full recollection of the events of yesterday and what led to her near . Nora had had an emotional day on December 21. It revolves around not being able to have regular visits with her daughter. Nora think she is being avoided by her children. She was despondent. She had not taken her alprazolam every 6 hours through the day but instead had hoarded them. She went to bed about 11:00 and just before retiring took her evening medicines including Seroquel 400 mg, Remeron 30 mg, and then took 8 mg of alprazolam because she just wanted to go to sleep. She states that she was not intentionally trying to harm herself. She was found the next morning about 10 AM by her daughter and she was cyanotic and had agonal respirations. She stimulated her and called EMS. They gave HER-2 amps of Narcan and then she got another 2 A of Narcan when she arrived in ER. There was thought to be some subjective mild improvement but I think it was more from physical stimulation. She had no narcotics on board to reverse. There were empty bottles of amitriptyline and hydrocodone found in her room but they are empty because she has not been taking them for about 3 weeks. She flushed the remaining part of the prescriptions about 3 weeks ago. The only positive test on her urine drug screen was benzodiazepines. She also takes tramadol which is prescribed to be taken on a regular schedule but she takes it more as needed. She had not taken any yesterday. I did order a tramadol urine test this morning and also ordered a benzodiazepine blood level for quantitative purposes but they are both send out tests and will be probably a week getting back. She is amnestic about the events from the time she fell asleep until being extubated this morning. Her memory has gradually improved through the day but she is very lucid this evening. I do not think she is a danger to herself or anybody else and I do think this was an accidental event not an attempted suicide. Her prolonged sleep is due to a combination of too much alprazolam (8 mg), Remeron 30 mg and Seroquel 400 mg. On arrival she was moving and agitated. She had confused and slurred speech. And she would fall back asleep easily and quickly. She was intubated to protect her airway and remained on the vent in the SCU through the night and was extubated at 0707 yesterday morning. She also takes citalopram and there is some concern for QT prolongation with it being combined with Seroquel. Serial EKGs have shown no prolongation of the QTc interval. She has been very stable throughout the day and is on room air without difficulty. I repeated her CBC, CMP, blood gases, and EKG one more time to this morning and anticipate discharge. The encephalopathy is most likely toxic encephalopathy from the medications. There is no evidence to support metabolic encephalopathy. Since I know her well she seems to be at her normal baseline. I do not anticipate any other medical issues. This morning she is alert and conversant and in good spirits. She has had an uneventful night. Her morning lab is unremarkable. Her blood gases continue to show some mild hypercarbia in the low 40s. This confirms that indeed she does have COPD. Her O2 saturation is 92% on room air. She will be discharged to home to resume her usual medicines except as modified. She needs to see me in the office in 1 week. Procedures Performed: see notes below - Intubation and ventilator management Health Concerns: copd, psychiatric ilnesses, Results and Findings: Lab Pending Results 12/23/19 11:46: WBC 8.5, RBC 4.48, Hgb 12.4 L, Hct 39.7, MCV 88.6, MCH 27.7, MCHC 31.2 L, RDW 15.3 H, Plt Count 358, MPV 9.1, Immature Gran % (Auto) 0.40, Immature Gran # (Auto) 0.03, Neutrophils % 60.8, Lymphocytes % 27.8, Monocytes % 8.5, Eosinophils % 1.9, Basophils % 0.6, Nucleated RBC % 0.0, Neutrophils # 5.2, Lymphocytes # 2.35, Monocytes # 0.7, Eosinophils # 0.2, Absolute Basophils 0.1 12/23/19 11:46: Sodium 146 H, Plasma Sodium 146 H, Potassium 4.0 D, Chloride 106, Carbon Dioxide 31.7, Anion Gap 12.3, BUN 17 D, Creatinine 0.90, Est GFR (Non-Af Amer) 70 D, BUN/Creatinine Ratio 18.9, Random Glucose 99, Calcium 9.2, Calcium Adj for Albumin 9.4, Total Bilirubin 0.1, AST 10, ALT 20, Alkaline Phosphatase 113, Total Protein 6.9, Albumin 3.3 L, Salicylates 4.7, Acetaminophen Less than 0.2 L, Ethyl Alcohol Less than 3.0 12/23/19 12:44: Urine Color Pale yellow, Urine Appearance Slightly cloudy, Urine pH 7.0, Ur Specific Susan 1.010, Urine Protein Negative, Urine Glucose (UA) Negative, Urine Ketones Negative, Urine Blood Negative, Urine Nitrate Negative, Urine Bilirubin Negative, Urine Urobilinogen Normal, Ur Leukocyte Esterase Negative, Urine RBC None seen, Urine WBC 0-5, Ur Epithelial Cells 0-5, Amorphous Sediment Few - 1+, Urine Bacteria 1+ H, Urine Culture Comments Culture to follow 12/23/19 12:44: Urine Opiates Screen Negative, Barbiturate Screen Negative, Ur Phencyclidine Scrn Negative, Urine Amphetamine Negative, U Benzodiazepines Scrn Positive H, Urine Cocaine Screen Negative, Urine Marijuana (THC) Negative 12/23/19 13:05: pCO2 52.4 H, pO2 137.5 H, HCO3 26.5, Total CO2 28.1 H, Base Excess -0.3, ABG pH 7.32 L, ABG O2 Sat (Measured) 98.5 H 12/23/19 13:45: Acetaminophen Less than 0.2 L 12/23/19 15:23: pCO2 51.5 H, pO2 102.7, HCO3 26.9, Total CO2 28.5 H, Base Excess 0.3, ABG pH 7.34 L, ABG O2 Sat (Measured) 97.3 12/23/19 16:46: pCO2 46.5 H, pO2 76.6 L, HCO3 25.7, Total CO2 27.2 H, Base Excess -0.1, ABG pH 7.36, ABG O2 Sat (Measured) 94.8 12/24/19 05:15: pCO2 46.1 H, pO2 69.8 L, HCO3 24.4, Total CO2 25.8 H, Base Excess -1.5, ABG pH 7.34 L, ABG O2 Sat (Measured) 93.0 L 12/24/19 08:56: WBC 11.5 H D, RBC 4.37, Hgb 12.1 L, Hct 39.1, MCV 89.5, MCH 27.7, MCHC 30.9 L, RDW 15.6 H, Plt Count 353, MPV 9.1, Immature Gran % (Auto) 0.30, Immature Gran # (Auto) 0.04 H, Neutrophils % 67.3, Lymphocytes % 21.4, Monocytes % 9.3 H, Eosinophils % 1.3, Basophils % 0.4, Nucleated RBC % 0.0, Neutrophils # 7.7 H, Lymphocytes # 2.46, Monocytes # 1.1 H, Eosinophils # 0.2, Absolute Basophils 0.1 12/24/19 08:56: Sodium 138, Plasma Sodium 138, Potassium 3.8, Chloride 102, Carbon Dioxide 32.5, Anion Gap 7.3, BUN 15, Creatinine 0.88, Est GFR (Non-Af Amer) 72, BUN/Creatinine Ratio 17.0, Random Glucose 92, Calcium 8.4, Calcium Adj for Albumin 8.7, Total Bilirubin 0.2, AST 12, ALT 18 L, Alkaline Phosphatase 107, Total Protein 6.7, Albumin 3.2 L 12/25/19 06:00: WBC 9.2, RBC 4.52, Hgb 12.4 L, Hct 40.9, MCV 90.5, MCH 27.4, MCH C 30.3 L, RDW 15.5 H, Plt Count 323, MPV 9.5, Immature Gran % (Auto) 0.30, Immature Gran # (Auto) 0.03, Neutrophils % 60.2, Lymphocytes % 26.6, Monocytes % 9.8 H, Eosinophils % 2.4, Basophils % 0.7, Nucleated RBC % 0.0, Neutrophils # 5.5, Lymphocytes # 2.43, Monocytes # 0.9, Eosinophils # 0.2, Absolute Basophils 0.1 12/25/19 06:00: Sodium 141, Plasma Sodium 141, Potassium 4.1, Chloride 104, Carbon Dioxide 30.7, Anion Gap 10.4, BUN 16, Creatinine 0.77, Est GFR (Non-Af Amer) 84, BUN/Creatinine Ratio 20.8, Random Glucose 99, Calcium 8.7, Calcium Adj for Albumin 9.1, Total Bilirubin 0.2, AST 16, ALT 17 L, Alkaline Phosphatase 111, Total Protein 6.8, Albumin 3.1 L 12/25/19 07:07: pCO2 47.1 H, pO2 61.8 L, HCO3 28.7 H, Total CO2 30.1 H, Base Excess 3.2 H, ABG pH 7.40, ABG O2 Sat (Measured) 91.6 L Discharge Location: Home Disposition: Home Health Service Home Health Agency: Other - [facility] Condition: Stable Face to Face Encounter completed per CMS Guidelines: No Discharge Activity: Activity as tolerated Discharge Diet: General/regular food Referrals: Sergio Whitt DO [Primary Care Provider] - Problem Oriented Discharge Instructions to Patient/Family: Intentional Drug Overdose Additional Patient Instructions (free text): Follow up appointment with January 05 at 10:15 Has [facility] ongoing, please fax discharge information to them. and [phone] both please. Prescriptions (Any new or edited meds): QUEtiapine FUMARATE [Seroquel] 400 mg PO HS #30 QUEtiapine FUMARATE [Seroquel Xr] 200 mg PO QAM #30 tab.er.24h Transmission Status: Received by [facility], [place], [place] Complete Home Medications List: Complete Home Medication List: blood sugar diagnostic See Dose Instructions .ROUTE .MEDSUPPLY #100 ea 04/07/19 citalopram 40 mg tablet 40 mg PO DAILY #30 tab 08/04/19 Ibuprofen 800 mg PO TID PRN 10/13/19 alprazolam 1 mg tablet 1 mg PO TID PRN #90 tab 11/10/19 mirtazapine 30 mg tablet 30 mg PO DAILY #30 tab 11/16/19 cyclobenzaprine 10 mg tablet 10 mg PO TID #30 tab 12/04/19 famotidine 20 mg tablet 20 mg PO DAILY #30 tab 12/04/19 tramadol 50 mg tablet 100 mg PO QID #240 tab 12/14/19 Albuterol Sulfate [Proair Hfa] 1 - 2 puff INHALATION Q4H PRN 12/23/19 Amlodipine Besylate 5 mg PO QAM 12/23/19 Gabapentin 300 mg PO QID 12/23/19 Levothyroxine Sodium [Synthroid] 1 tab PO QAM 12/23/19 Lisinopril 10 mg PO QAM 12/23/19 Pravastatin Sodium 40 mg PO HS 12/23/19 QUEtiapine FUMARATE [Seroquel Xr] 200 mg PO QAM #30 tab.er.24h 12/25/19 QUEtiapine FUMARATE [Seroquel] 400 mg PO HS #30 12/25/19 Forms: Patient Portal Registration
[2019-12-25 11:59] VITALS: BP 143/89
== END 2019-12-25 12:40 | disposition home health service (06) | DRG 917 ==
LOC: ER 11:27 → SCU 13:39 → MS 12-24 07:58
PROVIDERS: ADMIT Family Medicine; ATTEND Family Medicine
CPT/HCPCS: 36415; 36600; 71010; 71045; 80053; 80307; 81001; 82803; 85025; 87086; 93005; 94002; 94003; 94760; 96374; 96375; 99285; G0480; J2405